=== PATIENT | male | born 1970 | race Caucasian/White ===

== ENCOUNTER 2019-11-23 09:57 | Outpatient (CLI) | payer MEDICARE, SELFPAY ==
--- NOTE | ~2019-11-23 | NM_ITS ---
EXAMINATION: NM hepatobiliary w pharm DATE: 11/23/2019 12:41 INDICATION: Abdominal pain COMPARISON: CT dated 12/18/2018 TECHNIQUE: 4.8 mCi Tc-99m mebrofenin (Choletec) was administered intravenously. Scintigraphic images of the abdomen were obtained for one hour. 1.7 mcg sincalide (Kinevac) was administered by slow intr avenous infusion, and imaging was continued for 30 minutes. Gallbladder ejection fraction was calcula estefanía by the technologist. FINDINGS: There is normal clearance of radiotracer from the blood pool. There is homogeneous tracer uptake by t he liver. Activity progresses to the gallbladder and bowel. The gallbladder ejection fraction (GBEF) is 46% (normal 10-90%, but most patient with gallbladder dysfunction have GBEF < 35% which does over lap with the normal range). IMPRESSION: 1. Normal hepatobiliary scan. Reviewed, dictated and finalized at location A.
[2019-11-23 12:31] LABS: Iron 139 ug/dL (49-181)
[2019-11-23 12:41] LABS: Percent Iron Saturation 57 % (20-50)
[2019-11-23 13:12] LABS: Hepatitis C Virus Antibody Negative (Negative)
[2019-11-26 09:14] LABS: Gliadin AB, IgG 3 Units (<20); Reticulin IgA Negative (Negative); TTG IGA AB 1 U/mL (<4)
== END 2019-11-23 09:58 | disposition home or self-care (01) ==
PROVIDERS: PCP Internal Medicine; Visit Provider Nurse Practitioner
DX: R10.9 Unspecified abdominal pain (principal); R74.0 Nonspecific elevation of levels of transaminase and lactic acid dehydrogenase [LDH]
CPT/HCPCS: 36415; 78227; 83516; 83540; 83550; 86255; 86803; A9537; J2805

== ENCOUNTER → 2020-12-30 02:01 | Outpatient (CLI) | payer MEDICARE, SELFPAY ==
[2020-12-30 19:24] LABS: SARS-CoV-2 RNA PCR Negative
== END ==
PROVIDERS: PCP Internal Medicine; Visit Provider Internal Medicine Gastroenterology
DX: Z01.812 Encounter for preprocedural laboratory examination (principal); Z20.822 Contact with and (suspected) exposure to COVID-19
CPT/HCPCS: C9803; U0003; U0005

== ENCOUNTER 2021-01-02 01:56 | Day surgery (SDC) | payer MEDICARE, SELFPAY ==
[2020-12-24 15:15] VITALS: BMI 31.5
[2021-01-02 08:43] VITALS: BP 151/110; PULSE 80; RESP 17; TEMP 36.6; O2SAT 98; BMI 30.3
[2021-01-02] MEDS: LACTATED RINGERS 1,000 ML 150 ML IV CONT (08:52)
--- NOTE | 2021-01-02 09:21 | WPDANESEPPF ---
Anes - Initial Pre Proc Eval Procedure: Operation Date: 01/02/21 10:00 Proposed Procedures p Screening Colonoscopy - Feroz Garcia MD Date/Time: 01/02/21 09:21 Surgeon: Feroz Garcia MD Pre Op Diagnosis: family hx of colon CA Patient Data Age: 50 Gender: M Height: 5 ft 8 in Weight: 90.4 kg Last Vital Signs Temp 36.6 C 01/02/21 08:43 Pulse 80 01/02/21 08:43 Resp 17 01/02/21 08:43 BP 151/110 H 01/02/21 08:43 Pulse Ox 98 01/02/21 08:43 Allergies Allergy/AdvReac Type Severity Reaction Status Date / Time prochlorperazine Allergy Unknown Rash Verified 01/02/21 08:41 lisinopril AdvReac Unknown Cough Verified 01/02/21 08:41 Home Medications Medication Instructions Recorded Confirmed Type aspirin 81 mg tablet,delayed 81 mg PO DAILY 10/16/19 01/02/21 History release carvedilol 25 mg tablet 25 mg PO Q12H 10/16/19 01/02/21 History nitroglycerin 0.4 mg sublingual 0.4 mg SUBLINGUAL Q5M PRN 10/16/19 01/02/21 History tablet sildenafil (pulm.hypertension) 20 60 - 100 mg PO DAILY PRN tablet 10/16/19 01/02/21 History mg tablet spironolactone 25 mg tablet 25 mg PO DAILY 10/16/19 01/02/21 History losartan 50 mg tablet 50 mg PO DAILY #90 tablet 10/15/20 01/02/21 Rx amlodipine 10 mg tablet 10 mg PO DAILY #90 tablet 11/05/20 01/02/21 Rx atorvastatin 80 mg tablet 80 mg PO DAILY #90 tablet 11/10/20 01/02/21 Rx Patient hx anesthesia problems: none Family hx anesthesia problems: none PMFSH Past Medical History Medical History CAD (coronary artery disease) Chicken pox Depression Headache, migraine Heart problem Hepatic steatosis Herniated disc HTN (hypertension) Hyperlipidemia Mumps Spinal cord stimulator status dorsal column stimulator Surgical History Surgical History Fusion of lumbar spine L4-S1 Hx of fusion of cervical spine C5-C6 Family History Family History Sibling Carcinoma of colon Drug overdose Family history of lung cancer Family history of malignant neoplasm of brain Family history of malignant neoplasm of kidney Patient's sister is Patient's brother is Hyperlipidemia Asthma Diabetes mellitus Father Malignant neoplasm of prostate Emphysema lung Mother Hypertension Diabetes mellitus Cardiac arrest Social History Social History Smoking status: Former smoker Tobacco type: cigarettes Smoking end date: 08/29/17 Alcohol intake: never Living arrangements: with family Gender identity (if verbalized by the patient): Male Spiritual care concerns: No Anes - Eval Final PreProcedure Day of Procedure 01/02/21 09:21 Patient weight: overweight Heart: regular rate and rhythm Lungs: decreased breath sounds Airway: Mallampati scale class II Neurological: alert and oriented Last oral intake: >/= 8 hours ASA classification: III Emergent: no Anesthetic plan: proceed Anesthesia type and monitoring: general GIVS and standard monitoring Informed Consent: The patient's anesthetic plan and its attendant risks and benefits were discussed with the patient/family/POA. Questions were solicited and answers provided to the satisfaction of the patient/family/POA.
--- NOTE | 2021-01-02 09:37 | PM.HPGS ---
History of Present Illness History of Present Illness Consent: Risks, benefits, and alternatives have been discussed and questions answered. Patient agrees to proceed with procedure. Chief complaint: family hx of colon CA Narrative: Wesley Clark is a 50 year old male here for first colonoscopy, father and brother had colon cancer Review of Systems Constitutional: Constitutional: Denies headache(s) and Denies weakness Eyes: Eyes: Denies blurry vision ENT: Reports Normal hearing present, Denies headache(s) and Denies neck pain Cardiovascular: Cardiovascular: Denies chest pain and Denies dyspnea Respiratory: Respiratory: Denies dyspnea Gastrointestinal: Gastrointestinal: Reports no additional gastrointestinal complaints Genitourinary: Genitourinary: Denies dysuria Musculoskeletal: Musculoskeletal: Denies neck pain Integumentary/Breasts: Skin/Breast: Denies dry skin Neurologic: Reports Normal hearing present, Denies headache(s) and Denies weakness Psychiatric: Psychiatric: Denies anxiety Endocrine: Endocrine: Denies change in body appearance Hematologic/Lymphatic: Hematologic/Lymphatic: Denies easy bleeding Allergic/Immunologic: Allergic/Immunologic: Denies urticaria PMFSH Past Medical History Medical History CAD (coronary artery disease) Chicken pox Depression Headache, migraine Heart problem Hepatic steatosis Herniated disc HTN (hypertension) Hyperlipidemia Mumps Spinal cord stimulator status dorsal column stimulator Surgical History Surgical History Fusion of lumbar spine L4-S1 Hx of fusion of cervical spine C5-C6 Family History Family History Sibling Carcinoma of colon Drug overdose Family history of lung cancer Family history of malignant neoplasm of brain Family history of malignant neoplasm of kidney Patient's sister is Patient's brother is Hyperlipidemia Asthma Diabetes mellitus Father Malignant neoplasm of prostate Emphysema lung Mother Hypertension Diabetes mellitus Cardiac arrest Social History Social History Smoking status: Former smoker Tobacco type: cigarettes Smoking end date: 08/29/17 Alcohol intake: never Living arrangements: with family Gender identity (if verbalized by the patient): Male Spiritual care concerns: No Meds Home Medications and Allergies Home Medications Medication Instructions Recorded Confirmed Type aspirin 81 mg tablet,delayed 81 mg PO DAILY 10/16/19 01/02/21 History release carvedilol 25 mg tablet 25 mg PO Q12H 10/16/19 01/02/21 History nitroglycerin 0.4 mg sublingual 0.4 mg SUBLINGUAL Q5M PRN 10/16/19 01/02/21 History tablet sildenafil (pulm.hypertension) 20 60 - 100 mg PO DAILY PRN tablet 10/16/19 01/02/21 History mg tablet spironolactone 25 mg tablet 25 mg PO DAILY 10/16/19 01/02/21 History losartan 50 mg tablet 50 mg PO DAILY #90 tablet 10/15/20 01/02/21 Rx amlodipine 10 mg tablet 10 mg PO DAILY #90 tablet 11/05/20 01/02/21 Rx atorvastatin 80 mg tablet 80 mg PO DAILY #90 tablet 11/10/20 01/02/21 Rx Allergies Allergy/AdvReac Type Severity Reaction Status Date / Time prochlorperazine Allergy Unknown Rash Verified 01/02/21 08:41 lisinopril AdvReac Unknown Cough Verified 01/02/21 08:41 Vital Signs Vital Signs - 24 hr 01/02/21 08:43 Temperature 97.9 F Pulse Rate 80 Respiratory Rate 17 Blood Pressure 151/110 H Pulse Oximetry 98 Exam Const: General: comfortable and no acute distress HENMT: General nose exam: Normal nares present Eyes: General: appearance normal, both eyes and all related structures Neck: Neck: no JVD Resp: Auscultation: clear to auscultation bilaterally Cardio: Rate: regular rate Rhythm: regular rhythm G
[2021-01-02 10:11] VITALS: BP 112/76; PULSE 80; RESP 17; O2SAT 97
[2021-01-02 10:21] VITALS: BP 114/80; PULSE 71; RESP 17; O2SAT 95
[2021-01-02 10:31] VITALS: BP 120/82; PULSE 76; RESP 17; O2SAT 97
== END 2021-01-02 10:40 | disposition home or self-care (01) ==
PROVIDERS: PCP Internal Medicine; Visit Provider Internal Medicine Gastroenterology
PROC: 0DJD8ZZ Inspection of Lower Intestinal Tract, Via Natural or Artificial Opening Endoscopic (ICD-10-PCS; CPT 45378; principal; 2021-01-02 10:00)
DX: Z12.11 Encounter for screening for malignant neoplasm of colon (principal); D12.0 Benign neoplasm of cecum; D12.2 Benign neoplasm of ascending colon; D12.3 Benign neoplasm of transverse colon; K63.5 Polyp of colon; K64.8 Other hemorrhoids; Z80.0 Family history of malignant neoplasm of digestive organs; I10 Essential (primary) hypertension; E78.5 Hyperlipidemia, unspecified; I25.10 Atherosclerotic heart disease of native coronary artery without angina pectoris; F32.9 Major depressive disorder, single episode, unspecified; Z79.82 Long term (current) use of aspirin; Z98.1 Arthrodesis status; Z87.891 Personal history of nicotine dependence
CPT/HCPCS: 45385; 88305; C9803; J2704; J7120; U0003; U0005

== ENCOUNTER 2021-03-24 09:56 | Outpatient (CLI) | payer MEDICARE, SELFPAY ==
--- NOTE | ~2021-03-24 | CT_ITS ---
EXAMINATION: CTA abdomen pelvis DATE: 03/24/2021 10:51 INDICATION: Abdominal and back pain TECHNIQUE: Computed tomographic angiography (CTA) of the abdomen and pelvis was performed with 100 mL Omnipaque-350 intravenous contrast. Maximum intensity projection 3D-reconstructions of the aorta and other arteries were constructed by the technologist on a separate workstation. The dose-length produ ct (DLP) was 1104.81 mGy-cm. Automated exposure control and iterative reconstruction technique were e mployed. COMPARISON: 12/18/2018 FINDINGS: Minimal dependent atelectasis is present in the lung bases. The heart size is normal. Calci fied coronary artery atherosclerosis is noted. The liver is diffusely low in attenuation when compare d with the spleen, consistent with hepatic steatosis. The spleen, pancreas, gallbladder, and adrenal glands are normal. 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 There is chronic mild atrophy of the left kidney. No pathologically enlarged abdominal or pelvic lymph nodes are iden tified. There is no free intraperitoneal gas or evidence of bowel obstruction. There is severe lumbar spondylosis. There are changes of posterior fusion from L4 through S1. A neurostimulator device is i mplanted in the subcutaneous tissues of the right flank. Its leads and posteriorly in the central spi nal canal at the level of the T7 and T8 vertebral bodies. There is mild wall thickening of the urinar y bladder which could be due to incomplete distention. The abdominal aorta is normal in caliber. There is no dissection. There is calcified atherosclerosis of the aorta and many of the other arteries. The celiac axis, superior mesenteric artery, and inferio r mesenteric artery are unremarkable. There are single renal arteries bilaterally. There is calcified atherosclerosis and moderate stenosis at the origin of the right internal iliac artery. There is mariana cified atherosclerosis with severe stenosis distal internal calcified atherosclerosis with mild steno sis is noted in common iliac arteries, external iliac arteries, and left internal iliac artery. IMPRESSION: 1. Aortic atherosclerosis without dissection or aneurysm. Additional areas of atherosclerosis with se daisha stenosis noted in right internal iliac artery. 2. Diffuse hepatic steatosis. Reviewed, dictated and finalized at location A. IMPRESSION: 1. Aortic atherosclerosis without dissection or aneurysm. Additional areas of a therosclerosis with severe stenosis noted in right internal iliac artery. 2. Diffuse hepatic steatosis.
[2021-03-24 10:46] LABS: Estimated Glomerular Filt Rate > 60
== END 2021-03-24 09:57 | disposition home or self-care (01) ==
LOC: ANHIMG 09:59
PROVIDERS: PCP Internal Medicine; Visit Provider Clinical Nurse Specialist
DX: R10.11 Right upper quadrant pain (principal); I77.89 Other specified disorders of arteries and arterioles; I70.0 Atherosclerosis of aorta; K76.0 Fatty (change of) liver, not elsewhere classified
CPT/HCPCS: 74174; Q9967

== ENCOUNTER 2022-01-12 00:01 | Day surgery (SDC) | payer MEDICARE, SELFPAY ==
[2021-12-29 13:34] VITALS: BMI 31.5
[2022-01-12 07:52] VITALS: BP 121/96; PULSE 81; RESP 17; TEMP 36.5; O2SAT 97
[2022-01-12] MEDS: LACTATED RINGERS 1,000 ML 150 ML IV CONT (08:02)
--- NOTE | 2022-01-12 08:47 | WPDANESEPPF ---
Anes - Initial Pre Proc Eval Procedure: Operation Date: 01/12/22 09:00 Proposed Procedures p Screening Colonoscopy - Feroz Garcia MD Date/Time: 01/12/22 08:47 Surgeon: Feroz Garcia MD Pre Op Diagnosis: hx of colon polyps Patient Data Age: 51 Gender: M Height: 1.73 m Weight: 92 kg Last Vital Signs Temp 97.7 F 01/12/22 07:52 Pulse 81 01/12/22 07:52 Resp 17 01/12/22 07:52 BP 121/96 H 01/12/22 07:52 Pulse Ox 97 01/12/22 07:52 Allergies Allergy/AdvReac Type Severity Reaction Status Date / Time prochlorperazine Allergy Unknown Rash Verified 01/12/22 07:50 lisinopril AdvReac Unknown Cough Verified 01/12/22 07:50 Home Medications Medication Instructions Recorded Confirmed Type aspirin 81 mg tablet,delayed 81 mg PO DAILY 10/16/19 12/29/21 History release carvedilol 25 mg tablet 25 mg PO Q12H 10/16/19 12/29/21 History nitroglycerin 0.4 mg sublingual 0.4 mg SUBLINGUAL Q5M PRN 10/16/19 12/29/21 History tablet sildenafil (pulm.hypertension) 20 60 - 100 mg PO DAILY PRN tablet 10/16/19 12/29/21 History mg tablet losartan 50 mg tablet 50 mg PO DAILY #90 tablet 10/15/20 12/29/21 Rx amlodipine 10 mg tablet 10 mg PO DAILY #90 tablet 11/05/20 12/29/21 Rx atorvastatin 80 mg tablet 80 mg PO DAILY #90 tablet 11/10/20 12/29/21 Rx Patient hx anesthesia problems: none Family hx anesthesia problems: none Results Review: All pre-operative results and documents have been reviewed as part of the pre-operative evaluation. [facility] Past Medical History Medical History (Updated 11/05/21 @ 08:53 by Gilda Wayne NP) CAD (coronary artery disease) Chicken pox Depression Headache, migraine Heart problem Hepatic steatosis Herniated disc HTN (hypertension) Hyperlipidemia Mumps Spinal cord stimulator status dorsal column stimulator Surgical History Surgical History (Updated 03/17/21 @ 14:10 by Preeti M. Senci, [employer]ING MACHINE OPERATOR-C) Fusion of lumbar spine L4-S1 Hx of fusion of cervical spine C5-C6 Family History Family History (Reviewed 03/17/21 @ 11:11 by Michelle Gaviria [facility]) Sibling Carcinoma of colon Drug overdose Family history of lung cancer Family history of malignant neoplasm of brain Family history of malignant neoplasm of kidney Patient's sister is Patient's brother is Hyperlipidemia Asthma Diabetes mellitus Father Malignant neoplasm of prostate Emphysema lung Mother Hypertension Diabetes mellitus Cardiac arrest Social History Social History (Reviewed 03/17/21 @ 11:11 by Michelle Gaviria [facility]) Smoking status: Former smoker Tobacco type: cigarettes Smoking end date: 08/29/17 Alcohol intake: never Living arrangements: with family Gender identity (if verbalized by the patient): Male Spiritual care concerns: No Anes - Eval Final PreProcedure Day of Procedure 01/12/22 08:47 Patient weight: obese Heart: regular rate and rhythm Lungs: clear to auscultation Airway: Mallampati scale class III Neurological: alert and oriented Last oral intake: >/= 8 hours ASA classification: III Emergent: no Anesthetic plan: proceed Anesthesia type and monitoring: general GIVS and standard monitoring Results Review: All pre-operative results and documents have been reviewed as part of the pre-operative evaluation. Informed Consent: The patient's anesthetic plan and its attendant risks and benefits were discussed with the patient/family/POA. Questions were solicited and answers provided to the satisfaction of the patient/family/POA.
--- NOTE | 2022-01-12 08:50 | PM.HPGS ---
History of Present Illness History of Present Illness Consent: Risks, benefits, and alternatives have been discussed and questions answered. Patient agrees to proceed with procedure. Chief complaint: hx of colon polyps Narrative: Wesley Clark is a 51 year old male with multiple colon polyps removed last year and strong family history of colon cancer Review of Systems Constitutional: Constitutional: Denies headache(s) and Denies weakness Eyes: Eyes: Denies blurry vision ENT: Reports Normal hearing present, Denies headache(s) and Denies neck pain Cardiovascular: Cardiovascular: Denies chest pain and Denies dyspnea Respiratory: Respiratory: Denies dyspnea Gastrointestinal: Gastrointestinal: Reports no additional gastrointestinal complaints Genitourinary: Genitourinary: Denies dysuria Musculoskeletal: Musculoskeletal: Denies neck pain Integumentary/Breasts: Skin/Breast: Denies dry skin Neurologic: Reports Normal hearing present, Denies headache(s) and Denies weakness Psychiatric: Psychiatric: Denies anxiety Endocrine: Endocrine: Denies change in body appearance Hematologic/Lymphatic: Hematologic/Lymphatic: Denies easy bleeding Allergic/Immunologic: Allergic/Immunologic: Denies urticaria PMFSH Past Medical History Medical History (Updated 01/12/22 @ 08:50 by Feroz Garcia MD) Adenomatous colon polyp CAD (coronary artery disease) Chicken pox Depression Headache, migraine Heart problem Hepatic steatosis Herniated disc HTN (hypertension) Hyperlipidemia Mumps Spinal cord stimulator status dorsal column stimulator Surgical History Surgical History (Updated 03/17/21 @ 14:10 by REINIER Boyce-C) Fusion of lumbar spine L4-S1 Hx of fusion of cervical spine C5-C6 Family History Family History Sibling Carcinoma of colon Drug overdose Family history of lung cancer Family history of malignant neoplasm of brain Family history of malignant neoplasm of kidney Patient's sister is Patient's brother is Hyperlipidemia Asthma Diabetes mellitus Father Malignant neoplasm of prostate Emphysema lung Mother Hypertension Diabetes mellitus Cardiac arrest Social History Social History Smoking status: Former smoker Tobacco type: cigarettes Smoking end date: 08/29/17 Alcohol intake: never Living arrangements: with family Gender identity (if verbalized by the patient): Male Spiritual care concerns: No Meds Home Medications and Allergies Home Medications Medication Instructions Recorded Confirmed Type aspirin 81 mg tablet,delayed 81 mg PO DAILY 10/16/19 12/29/21 History release carvedilol 25 mg tablet 25 mg PO Q12H 10/16/19 12/29/21 History nitroglycerin 0.4 mg sublingual 0.4 mg SUBLINGUAL Q5M PRN 10/16/19 12/29/21 History tablet sildenafil (pulm.hypertension) 20 60 - 100 mg PO DAILY PRN tablet 10/16/19 12/29/21 History mg tablet losartan 50 mg tablet 50 mg PO DAILY #90 tablet 10/15/20 12/29/21 Rx amlodipine 10 mg tablet 10 mg PO DAILY #90 tablet 11/05/20 12/29/21 Rx atorvastatin 80 mg tablet 80 mg PO DAILY #90 tablet 11/10/20 12/29/21 Rx Allergies Allergy/AdvReac Type Severity Reaction Status Date / Time prochlorperazine Allergy Unknown Rash Verified 01/12/22 07:50 lisinopril AdvReac Unknown Cough Verified 01/12/22 07:50 Vital Signs Vital Signs - 24 hr 01/12/22 07:52 Temperature 97.7 F Pulse Rate 81 Respiratory Rate 17 Blood Pressure 121/96 H Pulse Oximetry 97 Exam Const: General: comfortable and no acute distress HENMT: General nose exam: Normal nares present Eyes: General: appearance normal, both eyes and all related structures Neck: Neck: no JVD Resp: Auscultation: clear to auscultation bilaterally Cardio: Rate: regular rate Rhythm: regular rhythm GI: Inspection: non-dist
[2022-01-12 09:13] VITALS: BP 115/81; PULSE 74; RESP 20; O2SAT 97
[2022-01-12 09:23] VITALS: BP 112/83; PULSE 68; RESP 20; O2SAT 97
[2022-01-12 09:29] VITALS: BP 120/91; PULSE 70; RESP 22; O2SAT 94
== END 2022-01-12 09:37 | disposition home or self-care (01) ==
PROVIDERS: PCP Internal Medicine; Visit Provider Internal Medicine Gastroenterology
PROC: 0DJD8ZZ Inspection of Lower Intestinal Tract, Via Natural or Artificial Opening Endoscopic (ICD-10-PCS; CPT 45378; principal; 2022-01-12 09:00)
DX: Z12.11 Encounter for screening for malignant neoplasm of colon (principal); D12.2 Benign neoplasm of ascending colon; D12.5 Benign neoplasm of sigmoid colon; K63.5 Polyp of colon; K64.8 Other hemorrhoids; I25.10 Atherosclerotic heart disease of native coronary artery without angina pectoris; I10 Essential (primary) hypertension; E78.5 Hyperlipidemia, unspecified; K76.0 Fatty (change of) liver, not elsewhere classified; Z98.1 Arthrodesis status; Z87.891 Personal history of nicotine dependence; E66.9 Obesity, unspecified; Z68.30 Body mass index [BMI] 30.0-30.9, adult; Z80.0 Family history of malignant neoplasm of digestive organs
CPT/HCPCS: 45380; 45385; 88305; J2704; J7120

== ENCOUNTER 2022-04-19 08:22 | Outpatient (CLI) | payer MEDICARE, SELFPAY ==
--- NOTE | ~2022-04-19 | XR_ITS ---
EXAMINATION: XR chest 2V DATE: 04/19/2022 08:53 INDICATION: Dyspnea on exertion TECHNIQUE: PA and lateral views of the chest were obtained. COMPARISON: Chest radiograph dated 08/11/2018 FINDINGS: The lungs remain clear with no focal airspace opacities, pulmonary edema, pleural effusion or pneumot horax. The cardiomediastinal silhouette is normal. Spinal stimulator leads project over the central c anal at the mid to lower thoracic spine. Plate-screw fixation for lower cervical anterior spinal fusi on. IMPRESSION: 1. No acute cardiopulmonary disease. Reviewed, dictated and finalized at location A.
== END 2022-04-19 08:23 | disposition home or self-care (01) ==
PROVIDERS: PCP Internal Medicine; Visit Provider Nurse Practitioner Adult Health
DX: R06.00 Dyspnea, unspecified (principal)
CPT/HCPCS: 71046

== ENCOUNTER 2022-07-04 17:15 | Emergency (ER) | payer MEDICARE, SELFPAY ==
--- NOTE | ~2022-07-04 | XR_ITS ---
EXAM: XR shoulder RT min 2V DATE: 07/04/2022 17:47 HISTORY: 8 FOOT FALL OFF A LADDER ONTO RT SIDE. RT SHOULDER PAIN . COMPARISON: None available. FINDINGS: Normal mineralization. No fracture or dislocation. No lytic or blastic lesion. Joint space s are maintained. No erosion or periosteal change. Soft tissues within normal limits. IMPRESSION: No acute osseous finding in the right shoulder. Reviewed, dictated and finalized at location K. H MINISTER
--- NOTE | ~2022-07-04 | XR_ITS ---
EXAM: XR elbow RT min 3V DATE: 07/04/2022 20:20 HISTORY: FELL ONTO RT ARM FROM 8FT. PAIN, LIMITED ROM . COMPARISON: None available. FINDINGS: Normal mineralization. No fracture or dislocation. No lytic or blastic lesion. Mild degene rative changes. No erosion or periosteal change. Soft tissues within normal limits. IMPRESSION: No acute osseous finding in the right elbow. Reviewed, dictated and finalized at location K. NG BASTER
[2022-07-04 17:17] VITALS: BP 142/96; PULSE 86; RESP 18; TEMP 36.2; O2SAT 97
[2022-07-04 19:50] VITALS: BP 152/104; PULSE 85; RESP 18; O2SAT 95
[2022-07-04] MEDS: HYDROcodone/acetaminophen (*CRX) 5-325 MG TABLET 2 TAB PO (20:24)
[2022-07-04] MEDS: KETOROLAC 30 MG/ML VIAL (*BKC) 15 MG IM (20:25)
--- NOTE | 2022-07-04 20:29 | ED.GENADULT ---
HPI - General Adult General Chief complaint: Fall Stated complaint: fell off ladder Time Seen by Provider: 07/04/22 19:46 History of Present Illness HPI narrative: this is a 52-year-old male presenting ED after fall off ladder. Patient was approximately 8 ft up on a ladder twisted and he fell onto an outstretched arm. Patient now complaining of pain in his right arm over the lateral deltoid. It is radiating up and down his arm. It is a sharp shooting pain as 10/10 in intensity. Patient denies head trauma, denies chest pain, difficulty breathing or abdominal pain before or after the fall.. Patient feels like the arm is weak. He has not taken anything for pain. Related Data Home Medications Medication Instructions Recorded Confirmed aspirin 81 mg tablet,delayed 81 mg PO DAILY 10/16/19 04/07/22 release (Adult Low Dose Aspirin) carvedilol 25 mg tablet 25 mg PO Q12H 10/16/19 04/07/22 nitroglycerin 0.4 mg sublingual 0.4 mg sublingual Q5M PRN Angina 10/16/19 04/07/22 tablet sildenafil (pulm.hypertension) 20 60 - 100 mg PO DAILY PRN Erectile 10/16/19 02/10/22 mg tablet Dysfunction isosorbide mononitrate 30 mg 30 mg PO DAILY 02/10/22 04/07/22 tablet,extended release 24 hr spironolactone 25 mg tablet 25 mg PO DAILY 02/10/22 04/07/22 Allergies Allergy/AdvReac Type Severity Reaction Status Date / Time prochlorperazine Allergy Unknown Rash Verified 07/04/22 19:58 lisinopril AdvReac Unknown Cough Verified 07/04/22 19:58 Review of Systems Review of Systems: CONSTITUTIONAL: Denies night sweats. EYES: No eye pain ENT: Denies rhinorrhea CARDIOVASCULAR: Denies palpitations RESPIRATORY: Denies hemoptysis GASTROINTESTINAL: Denies hematemesis GENITOURINARY: Denies hematuria. SKIN: Denies rash MUSCULOSKELETAL: Admits arm pain NEUROLOGIC: Denies weakness. PSYCHIATRIC: Denies delusions PMFSH Past Medical History Medical History Adenomatous colon polyp CAD (coronary artery disease) Chicken pox Depression Headache, migraine Heart problem Hepatic steatosis Herniated disc HTN (hypertension) Hyperlipidemia Mumps Spinal cord stimulator status dorsal column stimulator Surgical History Surgical History Fusion of lumbar spine L4-S1 Hx of fusion of cervical spine C5-C6 Family History Family History Sibling Carcinoma of colon Family history of lung cancer Family history of malignant neoplasm of brain Family history of malignant neoplasm of kidney Patient's sister is Patient's brother is Hyperlipidemia Asthma Diabetes mellitus Drug overdose Father Malignant neoplasm of prostate Emphysema lung Mother Hypertension Diabetes mellitus Cardiac arrest Social History Social History Smoking status: Former smoker Tobacco type: cigarettes Smoking end date: 08/29/17 Alcohol intake: never Gender identity (if verbalized by the patient): Male Spiritual care concerns: No Exam Narrative: APPEARANCE: No apparent distress. Head: atraumatic. EYES: EOMI, NOSE: Atraumatic NECK: Trachea midline RESPIRATORY: No increased rate of breathing CARDIOVASCULAR: RRR, ABDOMINAL: Non-distended MUSCULOSKELETAl: No obvious deformities, focal exam of the right upper extremity revealed muscle tightness over the lateral deltoid with no overlying skin changes. There is no crepitus or deformity. Patient is able to give a thumbs up, make an okay sign and dorsiflex the wrist against pressure. Pulses are +2 in the Radian ulnar distribution. Cap refill is less than 2 seconds. Patient does have significant pain with active and passive range of motion of essentially his entire arm. No sensory deficits. NEURO: Alert. Moving 4/4 extremities SKIN:: Warm, dry. Normal color PSYCH
[2022-07-04] MEDS: methocarbamoL 750 MG TABLET 1500 MG PO (20:40)
[2022-07-04 21:48] VITALS: PULSE 80; RESP 18; O2SAT 99
== END 2022-07-04 21:50 | disposition home or self-care (01) ==
PROVIDERS: Emergency Provider Emergency Medicine; PCP Internal Medicine
DX: S49.91XA Unspecified injury of right shoulder and upper arm, initial encounter (principal); I25.10 Atherosclerotic heart disease of native coronary artery without angina pectoris; I10 Essential (primary) hypertension; E78.5 Hyperlipidemia, unspecified; Z86.010 Personal history of colon polyps; Z79.82 Long term (current) use of aspirin; Z98.1 Arthrodesis status; Z87.891 Personal history of nicotine dependence; W11.XXXA Fall on and from ladder, initial encounter
CPT/HCPCS: 73030; 73080; 96372; 99284; A4565; A9270; J1885

== ENCOUNTER 2022-07-13 12:46 | Outpatient (CLI) | payer MEDICARE, SELFPAY ==
--- NOTE | ~2022-07-13 | CT_ITS ---
EXAMINATION: CT shoulder RT wo con DATE: 07/13/2022 13:08 INDICATION: Acute onset right shoulder pain post fall onto the right shoulder 2 weeks prior TECHNIQUE: High resolution computed tomography (CT) of the right shoulder was performed without intra venous contrast. Additional sagittal and coronal reconstructions were performed. Automated exposure c ontrol and iterative reconstruction technique were employed. The dose-length product was 497.21 mGy-c m. COMPARISON: Right shoulder radiographs dated 07/04/2022 FINDINGS: Bone alignment is normal. There is a Hill-Sachs fracture trough at the superoposterolateral aspect of the right humeral head. There is no appreciable associated soft tissue swelling at the does not appe ar to be any increased density at the underlying fatty marrow to suggest edema in the setting of acut e fracture. No other fractures identified. Mild acromioclavicular osteoarthritis. There is also mild glenohumeral osteoarthritis. There is cystic change at the 5:00 position of the anteroinferior glenoi d. No glenohumeral joint effusion or evident increased fluid at the subacromial/subdeltoid bursa musc ulature of the right shoulder girdle is unremarkable. Lungs are unremarkable conifer expiratory phase of imaging and some respiratory motion. No pathologically enlarged lymphadenopathy at the right axil la or visualized right hemithorax. IMPRESSION: 1. Hill-Sachs fracture trough at the superoposterolateral aspect of the right humeral head which for reasons as detailed above is felt to be more likely chronic but this could be more definitively deter mined with MRI if clinically indicated. Correlate clinically for history of prior right glenohumeral dislocation. 2. Mild right acromioclavicular and glenohumeral osteoarthritis with cystic change at the anteroinfer ior glenoid which suggests either overlying high-grade chondromalacia or associated labral tear zita adkins in the setting of an associated chronic Bankart lesion. Reviewed, dictated and finalized at location [facility] IMPRESSION: 1. Hill-Sachs fracture trough at the superoposterolateral aspect of the right h umeral head which for reasons as detailed above is felt to be more likely chron ic but this could be more definitively determined with MRI if clinically indica estefanía. Correlate clinically for history of prior right glenohumeral dislocation. 2. Mild right acromioclavicular and glenohumeral osteoarthritis with cystic landry nge at the anteroinferior glenoid which suggests either overlying high-grade ch ondromalacia or associated labral tear potentially in the setting of an associa estefanía chronic Bankart lesion.
== END 2022-07-13 12:47 | disposition home or self-care (01) ==
PROVIDERS: PCP Internal Medicine; Visit Provider Orthopaedic Surgery
DX: M19.012 Primary osteoarthritis, left shoulder (principal)
CPT/HCPCS: 73200

== ENCOUNTER 2022-08-16 07:43 | Outpatient (RCR) | payer MEDICARE, SELFPAY ==
[2022-08-16 08:00] VITALS: BP_SYST 85
--- NOTE | 2022-08-16 09:03 | PTOPEVAL1 ---
Assessment and note entered by Jimena Mccollum, PT Evaluation Information Diagnosis R shoulder pain Onset Jul 02, 2022 Subjective Information was on a ladder, fell off-- R shoulder was behind him, reaching to try to catch himself, then landed on his R arm with it extended; CT scan reports Hill Sachs fracture, arthritis AC and GH joint with ? labral tear; Reported Pain Level Pain Score Self Report Additional Pain Score Comments pain range of 2-10/10; hard pain top of shoulder, hurts like dull pain, achey to wrist; when fell and hurt it, arm went numb; compared to when first hurt shoulder, it is now more wide spread pain; with sleeping, awaken 4-5x/night due to pain in shoulder; educated pt on correct position in sleeping, sitting and support to arm; hurts when try to lift arm; decreased pain with hand massager; hot baths; have prescription for hydrocodone- take at night; Assessment PT Clinical Summary Wesley has the diagnosis of R shoulder pain, s/p falling off a ladder and landing on his R arm. The CT scan reports bony changes. Prior to fall, he did not work due to chronic neck and back pain. He reports sleep is disrupted due to pain, and decreased use of his dominant arm. With the evaluation, he has decreased strength and ROM of R shoulder, and increased pain with all shoulder active motions. Skilled PT services are indicated for modalities to decrease pain, therapeutic exercises to increase the strength and ROM of his shoulder, with education for posture and HEP. Plan of Care Interventions Electrical Stimulation,Hot Pack/Cold Pack,Manual Therapy,Patient/Caregiver Education,Therapeutic Activities,Therapeutic Exercise,Ultrasound,Other Other Interventions taping PT Services Indicated Yes Treatment Frequency and 2x/wk for 5 weeks Duration These treatments will address the objective and functional deficits as defined above. The patient will be advanced safely and appropriately in order for the patient to progress towards his/her prior level of function. Additional exercises will be introduced and as well as a comprehensive home exercise program upon discharge, if needed, ?to ensure carryover of functional gains achieved in the clinic. This treatment plan has been reviewed and agreement upon by the patient.
--- NOTE | 2022-08-24 11:32 | PCPTNOTE ---
STEAM PRESSER called pt at 11:20 regarding no show to his appt today. Left message on cell phone.
--- NOTE | 2022-09-07 14:56 | PCPTNOTE ---
Patient did not show up for scheduled appointment this date. Called and had to leave a message, that since this was his 4th no show, we have canceled the rest of his appointments and if he need further assistance he would need to see the Dr for further orders.
--- NOTE | 2022-09-21 16:23 | PCPTNOTE ---
PHYSICAL THERAPY DISCHARGE 09-21-22 Attending Provider: Sam Jimenez MD Patient:Wesley Clark Date of :1970 Patient has not returned for any further treatments since initial PT evaluation on 08/16/2022, for R shoulder pain. Therefore he will be discharged at this time. Thank you for referring this patient to [facility].
== END 2022-09-21 17:06 | disposition home or self-care (01) ==
LOC: ANHPT 07:43
PROVIDERS: PCP Internal Medicine; Visit Provider Orthopaedic Surgery
DX: S43.004D Unspecified dislocation of right shoulder joint, subsequent encounter (principal); M25.519 Pain in unspecified shoulder; G89.11 Acute pain due to trauma
CPT/HCPCS: 97110; 97161; 99199

== ENCOUNTER 2024-06-12 00:58 | Day surgery (SDC) | payer MEDICARE, SELFPAY ==
[2024-05-24 11:39] VITALS: BMI 31.6
[2024-06-12 07:16] VITALS: BP 129/88; PULSE 99; RESP 20; TEMP 36.1; O2SAT 98; BMI 31.8
[2024-06-12 07:34] LABS: Glucose Point of Care 154 mg/dl (65-105)
[2024-06-12] MEDS: LACTATED RINGERS 1,000 ML 150 ML IV CONT (07:39)
--- NOTE | 2024-06-12 07:44 | WPDANESEPPF ---
Anes - Initial Pre Proc Eval Procedure: Operation Date: 06/12/24 08:30 Proposed Procedures p Colonoscopy - Feroz Garcia MD Date/Time: 06/12/24 07:44 Surgeon: Feroz Garcia MD Pre Op Diagnosis: Family HX malignant neoplasm of digestive organs Patient Data Age: 54 Gender: M Height: 1.73 m Weight: 95.2 kg Last Vital Signs Temp 36.1 C L 06/12/24 07:16 Pulse 99 06/12/24 07:16 Resp 20 06/12/24 07:16 BP 129/88 06/12/24 07:16 Pulse Ox 98 06/12/24 07:16 O2 Del Method Room Air 06/12/24 07:16 Allergies Allergy/AdvReac Type Severity Reaction Status Date / Time prochlorperazine Allergy Unknown Rash Verified 06/12/24 07:15 lisinopril AdvReac Unknown Cough Verified 06/12/24 07:15 Home Medications Medication Instructions Recorded Confirmed Type aspirin 81 mg tablet,delayed 81 mg PO DAILY 10/16/19 06/12/24 History release (Adult Low Dose Aspirin) carvedilol 25 mg tablet 25 mg PO Q12H 10/16/19 06/12/24 History isosorbide mononitrate 60 mg 60 mg PO DAILY 07/06/22 06/12/24 History tablet,extended release 24 hr duloxetine 30 mg capsule,delayed 30 mg PO DAILY #90 caps 07/28/23 06/12/24 Rx release (Cymbalta) glimepiride 4 mg tablet 4 mg PO QAM #90 tabs 01/18/24 06/12/24 Rx blood sugar diagnostic (Blood #50 ea 01/19/24 06/12/24 Rx Glucose Test strips) blood-glucose meter #1 ea 01/19/24 06/12/24 Rx lancets 30 gauge #100 ea 01/19/24 06/12/24 Rx atorvastatin 80 mg tablet 80 mg PO DAILY #90 tabs 01/24/24 06/12/24 Rx losartan 50 mg tablet 50 mg PO DAILY #90 tabs 01/24/24 06/12/24 Rx Laboratory Tests 06/12/24 07:32 POC Capillary Glucose 154 H mg/dl (65-105) Patient hx anesthesia problems: none Family hx anesthesia problems: none Results Review: All pre-operative results and documents have been reviewed as part of the pre-operative evaluation. [facility]LY [facility] Past Medical History Medical History Adenomatous colon polyp CAD (coronary artery disease) Chicken pox Depression Headache, migraine Heart problem Hepatic steatosis Herniated disc HTN (hypertension) Hyperlipidemia Mumps Spinal cord stimulator status dorsal column stimulator Surgical History Surgical History Fusion of lumbar spine L4-S1 Hx of fusion of cervical spine C5-C6 Family History Family History Sibling Carcinoma of colon Family history of lung cancer Family history of malignant neoplasm of brain Family history of malignant neoplasm of kidney Patient's sister is Patient's brother is Hyperlipidemia Asthma Diabetes mellitus Drug overdose Father Malignant neoplasm of prostate Emphysema lung Mother Hypertension Diabetes mellitus Cardiac arrest Social History Social History Smoking packs per day: 2 Smoking cigarettes per day: 40.0 Years smoked: 30 Smoking pack-years: 60.00 Smoking status: Former smoker Tobacco type: cigarettes Smoking end date: 08/29/17 Alcohol intake: never Substance use: never Substance use type: does not use Lack of Transportation: No Lack of Food: Never True Current Housing: I Have Housing Concerned About Future Housing: No Difficulty Paying Gas/Electric Bills: No Difficulty Paying for Meds: No Currently Unemployed: No Education: High School Diploma/GED Difficulty w/ Childcare or Family Care: No Living arrangements: with family Gender identity (if verbalized by the patient): Male Spiritual care concerns: No Anes - Eval Final PreProcedure Day of Procedure 06/12/24 07:44 Patient weight: obese Heart: regular rate and rhythm Lungs: clear to auscultation Airway: Mallampati scale class III Neurological: alert and oriented Last oral intake: >/= 8 rocco
--- NOTE | 2024-06-12 08:13 | PM.HPGS ---
History of Present Illness History of Present Illness Consent: Risks, benefits, and alternatives have been discussed and questions answered. Patient agrees to proceed with procedure. Chief complaint: Family HX malignant neoplasm of digestive organs Narrative: Wesley Clark is a 54 year old male with colon polyp in 2021, also h/o crc in brother and father Review of Systems Review of Systems: All systems reviewed & are unremarkable except as noted in HPI and below PMFSH Past Medical History Medical History Adenomatous colon polyp CAD (coronary artery disease) Chicken pox Depression Headache, migraine Heart problem Hepatic steatosis Herniated disc HTN (hypertension) Hyperlipidemia Mumps Spinal cord stimulator status dorsal column stimulator Surgical History Surgical History Fusion of lumbar spine L4-S1 Hx of fusion of cervical spine C5-C6 Family History Family History Sibling Carcinoma of colon Family history of lung cancer Family history of malignant neoplasm of brain Family history of malignant neoplasm of kidney Patient's sister is Patient's brother is Hyperlipidemia Asthma Diabetes mellitus Drug overdose Father Malignant neoplasm of prostate Emphysema lung Mother Hypertension Diabetes mellitus Cardiac arrest Social History Social History Smoking packs per day: 2 Smoking cigarettes per day: 40.0 Years smoked: 30 Smoking pack-years: 60.00 Smoking status: Former smoker Tobacco type: cigarettes Smoking end date: 08/29/17 Alcohol intake: never Substance use: never Substance use type: does not use Lack of Transportation: No Lack of Food: Never True Current Housing: I Have Housing Concerned About Future Housing: No Difficulty Paying Gas/Electric Bills: No Difficulty Paying for Meds: No Currently Unemployed: No Education: High School Diploma/GED Difficulty w/ Childcare or Family Care: No Living arrangements: with family Gender identity (if verbalized by the patient): Male Spiritual care concerns: No Meds Home Medications and Allergies Home Medications Medication Instructions Recorded Confirmed Type aspirin 81 mg tablet,delayed 81 mg PO DAILY 10/16/19 06/12/24 History release (Adult Low Dose Aspirin) carvedilol 25 mg tablet 25 mg PO Q12H 10/16/19 06/12/24 History isosorbide mononitrate 60 mg 60 mg PO DAILY 07/06/22 06/12/24 History tablet,extended release 24 hr duloxetine 30 mg capsule,delayed 30 mg PO DAILY #90 caps 07/28/23 06/12/24 Rx release (Cymbalta) glimepiride 4 mg tablet 4 mg PO QAM #90 tabs 01/18/24 06/12/24 Rx blood sugar diagnostic (Blood #50 ea 01/19/24 06/12/24 Rx Glucose Test strips) blood-glucose meter #1 ea 01/19/24 06/12/24 Rx lancets 30 gauge #100 ea 01/19/24 06/12/24 Rx atorvastatin 80 mg tablet 80 mg PO DAILY #90 tabs 01/24/24 06/12/24 Rx losartan 50 mg tablet 50 mg PO DAILY #90 tabs 01/24/24 06/12/24 Rx Allergies Allergy/AdvReac Type Severity Reaction Status Date / Time prochlorperazine Allergy Unknown Rash Verified 06/12/24 07:15 lisinopril AdvReac Unknown Cough Verified 06/12/24 07:15 Vital Signs Vital Signs - 24 hr 06/12/24 07:16 Temperature 96.9 F L Pulse Rate 99 Respiratory Rate 20 Blood Pressure 129/88 Pulse Oximetry 98 Oxygen Delivery Room Air Exam Const: General: comfortable and no acute distress HENMT: Face/Nose/Sinus: Normal nares present Eyes: General: appearance normal, both eyes and all related structures Neck: Neck: no JVD Resp: Auscultation: clear to auscultation bilaterally Cardio: Rate: regular rate Rhythm: regular rhythm GI: Inspection: non-distended GI Palp: Yes Soft to palpation Skin: General skin exam: laura
--- NOTE | 2024-06-12 08:37 | SUR.OPER ---
1 transverse colon polyp not retrieved. Dr. العلي notified.
[2024-06-12 08:40] VITALS: BP 86/59; PULSE 74; RESP 21; O2SAT 95
[2024-06-12 08:50] VITALS: BP 93/64; PULSE 79; RESP 18; O2SAT 95
[2024-06-12 09:00] VITALS: BP 106/85; PULSE 81; RESP 17; O2SAT 95
== END 2024-06-12 09:11 | disposition home or self-care (01) ==
PROVIDERS: PCP Internal Medicine; Referring Provider Nurse Practitioner; Visit Provider Internal Medicine Gastroenterology
PROC: 0DJD8ZZ Inspection of Lower Intestinal Tract, Via Natural or Artificial Opening Endoscopic (ICD-10-PCS; CPT 45378; principal; 2024-06-12 08:30)
DX: Z09 Encounter for follow-up examination after completed treatment for conditions other than malignant neoplasm (principal); D12.3 Benign neoplasm of transverse colon; E78.5 Hyperlipidemia, unspecified; I25.10 Atherosclerotic heart disease of native coronary artery without angina pectoris; F32.A Depression, unspecified; I11.9 Hypertensive heart disease without heart failure; E66.9 Obesity, unspecified; Z68.31 Body mass index [BMI] 31.0-31.9, adult; Z79.82 Long term (current) use of aspirin; Z79.84 Long term (current) use of oral hypoglycemic drugs; Z98.890 Other specified postprocedural states; Z98.1 Arthrodesis status; Z96.82 Presence of neurostimulator; Z87.891 Personal history of nicotine dependence; Z80.0 Family history of malignant neoplasm of digestive organs; Z80.1 Family history of malignant neoplasm of trachea, bronchus and lung; Z80.8 Family history of malignant neoplasm of other organs or systems; Z80.51 Family history of malignant neoplasm of kidney; Z80.42 Family history of malignant neoplasm of prostate; Z82.41 Family history of sudden cardiac death
CPT/HCPCS: 45385; 82948; 88305; J2003; J2371; J2704; J7120

== ENCOUNTER 2024-07-20 09:11 | Outpatient (CLI) | payer MEDICARE, SELFPAY ==
[2024-07-20 18:58] LABS: Basophils Percent Auto 0.4 % (0.2-1.2); Eosinophils Absolute Auto 0.1 K/mm3 (0-0.3); Eosinophils Percent Auto 1.9 % (0-4.4); Hematocrit 50.1 % (42.0-52.0); Immature Granulocyte Absolute 0.02 K/mm3 (0.00-0.031); Immature Granulocyte Percent A 0.3 % (0-0.5); Lymphocytes Absolute Auto 2.42 K/mm3 (0.9-3.2); Lymphocytes Percent Auto 34.8 % (18.3-44.2); Mean Corpuscular HGB Conc 33.9 g/dl (32-36); Mean Corpuscular Volume 91.3 fl (80-100); Mean Platelet Volume 11.8 fl (7.4-10.4); Monocytes Absolute Auto 0.6 K/mm3 (0.1-0.6); Monocytes Percent Auto 8.2 % (2.6-8.5); Neutrophils Absolute Auto 3.8 K/mm3 (1.3-6.7); Neutrophils Percent Auto 54.4 % (45.5-73.1); Platelet Count Result 222 k/mm3 (150-375); Red Blood Count 5.49 M/mm3 (4.6-6.20); Red Cell Distribution Width 12.3 % (11.5-14.5)
[2024-07-20 19:07] LABS: Alanine Aminotransferase 85 U/L (6-50); Albumin Level 4.4 g/dL (3.5-5.1); Alkaline Phosphatase 105 U/L (38-126); Anion Gap 9 mmol/L (4-12); Aspartate Amino Transferase 51 U/L (17-59); Bilirubin,Total 0.8 mg/dL (0.2-1.3); Blood Urea Nitrogen 17 mg/dL (9-20); Calcium 9.4 mg/dL (8.4-10.2); Carbon Dioxide 30 mmol/L (22-30); Chloride 101 mmol/L (98-107); Cholesterol 129 mg/dL (0-200); Estimated Glomerular Filt Rate > 60; Glucose 148 mg/dL (65-110); HDL Direct 30 mg/dL; Potassium 4.5 mmol/L (3.4-5.0); Sodium 140 mmol/L (137-145); Triglycerides 159 mg/dL (<150)
[2024-07-20 19:16] LABS: Creatinine Urine 142.3 mg/dL
[2024-07-20 19:17] LABS: LDL Cholesterol Direct 75 mg/dL
[2024-07-20 19:20] LABS: MALB Creatinine Ratio 10.5 mg/g (0-30)
[2024-07-20 19:33] LABS: Prostate Specific Antigen 1.3 ng/mL (< OR = 4.0)
[2024-07-23 14:35] LABS: Hemoglobin A1C 8.3 % (<5.7)
== END 2024-07-20 09:12 | disposition home or self-care (01) ==
PROVIDERS: PCP Internal Medicine; Visit Provider Nurse Practitioner
DX: Z12.5 Encounter for screening for malignant neoplasm of prostate (principal); E11.9 Type 2 diabetes mellitus without complications
CPT/HCPCS: 36415; 80053; 80061; 82043; 83036; 84153; 85025; G0103

== ENCOUNTER 2024-11-14 13:35 | Outpatient (CLI) | payer MEDICARE, SELFPAY ==
--- OUTSIDE RECORDS SUMMARY | 2024-11-14 15:08 | XMS_ITS | Clinical Summary ---
Author Organization [facility] Address [address] [place] [address] Care Team Providers Care Charter Coordinator Name Role Phone Neptali Mcgrath DO Primary Care Provider [phone] [facility],non-owned Affiliates and Associated Physician Practices is amultiple site organization consisting of ambulatory clinics and hospital sitesin [place], [place], [place] and [place]. This disclosure is being madepursuant to the Care Everywhere program and may not contain all information available regarding this patient. Last updated 18.[facility] Allergies Active Allergy Reactions Criticality Noted Date Comments Lisinopril Cough Medium 09/18/2018 Prochlorperazine Rash Medium 05/07/2019 Reaction: RASH Medications * Be aware that medications may not be up to date on this document. Alwaysverify current medications with the patient. Medication Sig Dispensed Refills Start Date End Date Status lisinopril (PRINIVIL; ZESTRIL) 10 MG tablet Take 10 mg by mouth once daily Active benzonatate (TESSALON) 200 MG capsule Take 1 capsule by mouth 3 times daily as needed for Cough 30 capsule 11/30/2017 Active Additional Information Patient not taking.Reported on 05/07/2019 spironolactone (ALDACTONE) 25 MG tablet 04/26/2019 Active losartan (COZAAR) 50 MG tablet 04/13/2019 Active carvedilol (COREG) 25 MG tablet 02/07/2019 Active nitroGLYCERIN (NITROSTAT) 0.4 MG tablet 09/08/2018 Active furosemide (LASIX) 20 MG tablet 04/26/2019 Active atorvastatin (LIPITOR) 40 MG tablet Take 40 mg by mouth at bedtime Active Family History Medical History Relation Name Comments Cancer - Other Brother High Cholesterol Brother Hypertension Brother Renal Disease Brother COPD - Chronic Obstructive Pulmonary Disease Father Cancer - Other Father Diabetes - Type 2 Father High Cholesterol Father Hypertension Father CAD (Coronary Artery Disease) Mother COPD - Chronic Obstructive Pulmonary Disease Mother CVA Mother Cancer - Other Mother Diabetes - Type 2 Mother High Cholesterol Mother Hypertension Mother Cancer - Other Sister High Cholesterol Sister Hypertension Sister Relation Name Status Comments Brother Father Mother Sister Social History Tobacco Use Types Packs/Day Years Used Date Smoking Tobacco: Former Cigarettes Smokeless Tobacco: Never Alcohol Use Standard Drinks/Week Comments Not Currently 0 (1 standard drink = 0.6 oz pur e alcohol) Sex and Gender Information Value Date Recorded Sex Assigned at Not on file Gender Identity Not on file Sexual Orientation Not on file Last Filed Vital Signs Vital Sign Reading Time Taken Comments Blood Pressure 138/96 11/30/2017 10:51 AM CDT Pulse 112 11/30/2017 11:28 AM CDT Temperature 38.3 C (100.9 F) 11/30/2017 11:28 AM CDT Respiratory Rate 20 11/30/2017 10:51 AM CDT Oxygen Saturation 97% 11/30/2017 10:51 AM CDT Inhaled Oxygen Concentration - - Weight 87.3 kg (192 lb 8 oz) 05/07/2019 10:13 AM CDT Height 174 cm (5' 8.5 ) 05/07/2019 10:13 AM CDT Body Mass Index 28.84 05/07/2019 10:13 AM CDT Plan of Treatment Health Maintenance Due Date Last Done Comments COLOGUARD (AGES 45-75) - COL ON CA SCREENING 1971 COLON MONITORING 1971 COLONOSCOPY - COLON CA SCREENING 1971 CT COLONOGRAPHY - COLON CA SCREENING 1971 Colorectal Cancer Screening 1971 FIT - COLON CA SCREENING 1971 FLEX SIG - COLON CA SCREENING 1971 HIV SCREENING 1986 HEPATITIS C SCREENING 05/29/1989 DTAP/TDAP/TD VACCINES (1 - Tdap) 1990 HEPATITIS B VACCINE (1 of 3 - 19+ 3-dose series) 1990 SCREENING FOR DIABETES 05/07/2019 PNEUMOCOCCAL VACCINE 50+ (1 of 1 - PCV) 2021 ZOSTER VACCINE (1 of 2) 2021 COVID-19 VACCINE ( - 2023-2 5 season) 2024 INFLUENZA VACCINE (#1) 2024 DEPRESSION SCREENING 08/29/2024 MEDICARE AWV CALENDAR YEAR 2024 HIB VACCINE Aged Out No longer eligi ble based on patient's age to complete this topic HPV VACCINE Aged Out No longer eligi ble based on patient's age to complete this topic MENINGOCOCCAL (Group B) VACC INE SHARED DECISION-MAKING Aged Out No longer eligibl e based on patient's age to complete this topic MENINGOCOCCAL GROUPS A/C/Y/W VACCINE Aged Out No longer eligible b ased on patient's age to complete this topic Care Teams Charter Coordinator Relationship Specialty Start Date End Date Neptali Mcgrath DO PCP - General 02/26/21
--- OUTSIDE RECORDS SUMMARY | 2024-11-14 15:08 | XMS_ITS | Encounter Summary ---
Author Organization [facility] Address [address] [place] [address] Care Team Providers Care Concrete Layer Name Role Phone Neptali Mcgrath DO Primary Care Provider [phone] Encounter Details Date Type Department Care Team (Late st Contact Info) Description 09/25/[address] 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 Gender Identity Not on file Sexual Orientation Not on file documented as of this encounter Plan of Treatment Not on file documented as of this encounter Procedures Procedure Name Priority Date/Time Associated Diagnosis Comments SCAN - RADIOLOGY/IMAGING 09/25/2015 documented in this encounter Results * SCAN - RADIOLOGY/IMAGING (09/25/2015) Anatomical Region Laterality Modality Other us Provider Scanning Final Result documented in this encounter Visit Diagnoses Not on filedocumented in this encounter Care Teams Concrete Layer Relationship Specialty Start Date End Date Neptali Mcgrath DO PCP - General Internal Medicine 04/16/22 documented as of this encounter
--- OUTSIDE RECORDS SUMMARY | 2024-11-14 15:09 | XMS_ITS | CONTINUITY OF CARE DOCUMENT ---
Author Name silviasamanthaurszulawendy Address Unknown Organization [facility] Address [address] [place] [address] Phone [phone] Care Team Providers Care Supervisor Paper Products Name Role Phone Santosh BREWSTER, Pricilla Unavailable JENNA HILLS MD Unavailable [phone] JENNA HILLS MD Unavailable [phone] INSURANCE PROVIDERS Payer name Policy type / Coverage type [place] red democrat ID [facility] [id number]
--- OUTSIDE RECORDS SUMMARY | 2024-11-14 15:09 | XMS_ITS | Referral Summary ---
Author Organization [facility] [address] Address [address] [place] [address] Care Team Providers Care Aircraft Sales Representative Name Role Phone Neptali Mcgrath DO Primary Care Provider [phone] Allergies Active Allergy Reactions Criticality Noted Date Comments Adhesive Tape-Silicones Rash Medium Lisinopril Cough Medium 09/18/2018 Prochlorperazine Rash Medium Reaction: RASH Medications losartan (COZAAR) 50 mg tablet Take 1 tablet (50 mg total) by mouth daily. 30 tablet 11 9 Active nitroglycerin (NITROSTAT) 0.4 mg SL tablet 9 Active atorvastatin (LIPITOR) 40 mg tablet Take 1 tablet (40 mg total) by mouth daily 30 tablet 11 9 Active aspirin 81 mg enteric coated tablet Take 1 tablet (81 mg total) by mouth daily Active DULoxetine DR (CYMBALTA) 30 mg capsule Take 1 capsule (30 mg total) by mouth daily Active isosorbide mononitrate ER (IMDUR) 60 mg 24 hr tabletIndications :Coronary artery disease of [place] artery [place] heart with stable angina pectoris TAKE 1 TABLET BY MOUTH EVERY DAY 90 tablet 2 4 Active spironolactone (ALDACTONE) 25 mg tabletIndications :Coronary artery disease of [place] 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 180 tablet 3 4 Active glimepiride (AMARYL) 4 mg tablet Take 1 tablet (4 mg total) by mouth daily before breakfast 4 Active Active Problems Problem Noted Date Diagnosed Date Jaw pain 09/29/2021 Chest pain 09/29/2021 Atherosclerosis of right iliac artery 03/31/2021 Erectile dysfunction 05/03/2019 Abnormal echocardiogram 10/06/2018 Coronary artery disease of [place] artery of [place] heart with stable angina pectoris 10/06/2018 NICM (nonischemic cardiomyopathy) 10/06/2018 Essential hypertension 10/06/2018 ABRAMS (dyspnea on exertion) 10/06/2018 LBBB (left bundle branch block) 10/06/2018 History of tobacco abuse 10/06/2018 NENITA (obstructive sleep apnea) 10/06/2018 Tingling of skin 09/06/2011 Social History Tobacco Use Types Packs/Day Years Used Date Smoking Tobacco: Former Cigarettes Q uit: 08/05/2018 Smokeless Tobacco: Never Tobacco Cessation:Counseling Given: Not Answered Alcohol Use Standard Drinks/Week Comments No 0 (1 standard drink = 0.6 oz pur e alcohol) Personal Safety Answer Date Recorded Getting School Help Needed Not on file 10/02 Sex and Gender Information Value Date Recorded Sex Assigned at Not on file 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 Gender Identity Not on file Sexual Orientation Not on file Last Filed Vital Signs Vital Sign Reading Time Taken Comments Blood Pressure 92/62 04/11/2024 10:57 AM CDT Pulse 86 04/11/2024 10:05 AM CDT Temperature - - Respiratory Rate - - Oxygen Saturation 94% 04/11/2024 10:05 AM CDT Inhaled Oxygen Concentration - - Weight 94.8 kg (209 lb) 04/11/2024 10:05 AM CDT Height 172.7 cm (5' 8 ) 04/11/2024 10:05 AM CDT Body Mass Index 31.78 04/11/2024 10:05 AM CDT Plan of Treatment Not on file Insurance MEDICARE [employer] CHOICE MEDICARE PPO [employer] CHOICE MEDICARE PPO Care Teams Aircraft Sales Representative Relationship Specialty Start Date End Date Neptali Mcgrath DO PCP - General Internal Medicine 04/16/22
--- OUTSIDE RECORDS SUMMARY | 2024-11-14 15:09 | XMS_ITS | Clinical Summary ---
Author Organization [facility] [address] Address [address] [place] [address] Care Team Providers Care Freight Loading Supervisor Name Role Phone Neptali Mcgrath DO Primary Care Provider [phone] Allergies Active Allergy Reactions Criticality Noted Date [...] 24 hr tabletIndications :Coronary artery disease of [place] artery of [place] heart with stable angina pectoris TAKE 1 TABLET BY MOUTH EVERY DAY 90 tablet 2 4 Active spironolactone (ALDACTONE) 25 mg tabletIndications :Coronary artery disease of [place] artery of [place] heart with stable angina pectoris,NICM (nonischemic cardiomyopathy) [...] artery disease of n ative artery of [place] heart with stable angina pectoris 10/06/2018 NICM (nonischemic cardiomyopathy) 10/06/2018 Essential hypertension 10/06/2018 ABRAMS (dyspnea on exertion) 10/06/2018 LBBB (left bundle branch block) 10/06/2018 History of tobacco abuse 10/06/2018 NENITA (obstructive sleep apnea) 10/06/2018 Tingling of skin 09/06/2011 Surgical History Surgery Date Site/Laterality Comments CERVICAL SPINE SURGERY LUMBAR FUSION SPINAL CORD STIMULATOR IMPLANT Medical History Medical History Date Comments Heart disease Hyperlipidemia Family History Medical History Relation Name Comments Cancer Brother Liver disease Brother Cancer Father Hypertension Father Heart disease Mother Lung cancer Sister Relation Name Status Comments Brother Father [...] on file 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 Gender Identity Not on file Sexual Orientation Not on file Obstetrics History Last Filed Vital Signs Vital Sign Reading [...] 04/11/2024 10:05 AM CDT Plan of Treatment Health Maintenance Due Date Last Done Comments Colon Cancer Screening-Colonoscopy 1971 Depression Screening 1971 Hepatitis C Screening 1971 Prostate Cancer Screening-PSA 1971 DTaP/Tdap/Td Vaccine (1 - Tdap) 1982 Hepatitis B Screening 1989 Regular Well Visit/Exam 18-64 1989 Pneumococcal vaccine <65 (1 of 2 - PCV) 1990 Zoster Vaccine (1 of 2) 2021 Influenza Vaccine (#1) 2024 Insurance MEDICARE [employer] CHOICE MEDICARE PPO [employer] CHOICE MEDICARE PPO [employer] CHOICE MEDICARE PPO Care Teams Freight Loading Supervisor Relationship Specialty Start Date End Date Neptali Mcgrath DO PCP - General Internal Medicine 04/16/22
[2024-11-14 20:42] LABS: Hemoglobin A1C 7.5 % (<5.7)
== END 2024-11-14 13:36 | disposition home or self-care (01) ==
LOC: ANHGOSHLAB 13:37
PROVIDERS: PCP Internal Medicine; Visit Provider Nurse Practitioner
DX: E11.9 Type 2 diabetes mellitus without complications (principal)
CPT/HCPCS: 36415; 83036

== ENCOUNTER 2024-12-25 08:44 | Outpatient (CLI) | payer MEDICARE, SELFPAY ==
--- OUTSIDE RECORDS SUMMARY | 2024-12-25 09:10 | XMS_ITS | CONTINUITY OF CARE DOCUMENT ---
Author Name silviasamanthaurszulawendy Address Unknown Organization [facility] Address [address] [place] [address] Phone [phone] Care Team Providers Care Oil Field Technician Name Role Phone Santosh BREWSTER, Pricilla Unavailable [phone] JENNA HILLS MD Unavailable [phone] JENNA HILLS MD Unavailable [phone] INSURANCE PROVIDERS Payer name Policy type / Coverage type Bruni red alliance party ID [facility] [id number]
--- OUTSIDE RECORDS SUMMARY | 2024-12-25 09:10 | XMS_ITS | Clinical Summary ---
Author Organization [facility] Address [address] [place] [address] Care Team Providers Care Food Prep Worker Name Role Phone Neptali Mcgrath DO Primary Care Provider [phone] Source Comments [facility],non-owned Affiliates and Associated Physician Practices is amultiple site organization consisting of ambulatory clinics and hospital sitesin [place], [place], [place] and [place]. This disclosure is being madepursuant to the Care Everywhere program and may not contain all information available regarding this patient. Last updated 18.[employer] [facility] Allergies Active Allergy Reactions Criticality Noted Date Comments Lisinopril Cough Medium 09/18/2018 Prochlorperazine Rash Medium 05/07/2019 Reaction: RASH Medications * Be aware that medications may not be up to date on this document. Alwaysverify current medications with the patient. lisinopril (PRINIVIL; ZESTRIL) 10 MG tablet Take 10 mg by mouth once daily Active benzonatate (TESSALON) 200 MG capsule Take 1 capsule by mouth 3 times daily as needed for Cough 30 capsule 8 Active Additional Information Patient not taking.Reported on 05/07/2019 spironolactone (ALDACTONE) 25 MG tablet 9 Active losartan (COZAAR) 50 MG tablet 9 Active carvedilol (COREG) 25 MG tablet 9 Active nitroGLYCERIN (NITROSTAT) 0.4 MG tablet 9 Active furosemide (LASIX) 20 MG tablet 9 Active atorvastatin (LIPITOR) 40 MG tablet Take [...] at Not on file Legal Sex Male 10:15 AM CDT Gender Identity Not on file Sexual Orientation [...] VACCINE (1 of 2) 2021 COVID-19 VACCINE (1 - 2023-2 5 season) 2024 DEPRESSION SCREENING 08/29/2024 MEDICARE AWV CALENDAR YEAR 2024 INFLUENZA VACCINE (Season Ended) 2025 HIB VACCINE Aged Out No longer eligi [...] on patient's age to complete this topic Insurance [facility] MEDICARE ADV HMO & PPO [id number] [id number] Care Teams Food Prep Worker Relationship Specialty Start Date End Date Neptali Mcgrath DO PCP - General 02/26/21
--- NOTE | 2025-01-14 16:27 | P.SLEEP_ITS ---
Sleep Study Date of Study: 12/25/24 Ordering Provider: Maura Menchaca NP Interpreting Physician: Cristina Kidd MD Sleep Study Type: Polysomnogram Height: 1.73 m Weight: 97.522 kg Body Mass Index: 32.6 Neck Circumference (inches): 18 Cuddy: 10 Reason for Sleep Study Feeling like suffocating at night, previously tried CPAP and did not tolerate Sleep History Wesley Clark is a 54-year-old man who has a prior diagnosis of obstructive sleep apnea, tried CPAP but just could not tolerate it. There is a positive family history, his sister also has sleep apnea. He occasionally awakens from sleep feeling short of breath. He occasionally wakes at night with heartburn, belching or coughing. He frequently snores, however never snores loudly enough that others complain. He constantly has trouble sleeping when he has a cold. He frequently wakes up gasping for breath during the night. He frequently has breathing problems at night. He occasionally sweats excessively at night. He occasionally notices his heart pounding or beating irregularly during the night. He frequently falls asleep during the day. He never falls asleep involuntarily, and never falls asleep while driving. He never experiences loss of muscle tone with strong emotion. He never has daytime difficulty at work due to excessive sleepiness. He never feels paralyzed on waking or falling asleep. He occasionally experiences vivid dreams upon waking or falling asleep. He occasionally feels afraid of going to sleep. He occasionally has nightmares. He occasionally recalls his dreams. He occasionally has thoughts racing through his mind. He never feels sad or depressed. He rarely feels anxiety. He rarely notices parts of his body jerk. He occasionally kicks during the night. He occasionally feels crawling or aching feelings in his legs. He occasionally feels leg pain at night. He never has morning jaw pain, rarely grinds his teeth at night. He constantly feels bothered by pain during the day, frequently awakened by pain during the night. He frequently wakes up feeling stiff in the morning, and he frequently wakes feeling sore or achy. He constantly awakens with pain in his neck, spine, or joints. He has fatigue, nightmares, and memory problems. Normal bedtime is between 8:00 p.m. and 9:00 p.m., falling asleep within 15 minutes, waking 5 or 6 times at night, frequently needs to urinate. Wake time is 6:00 a.m..and he is not sure how many hours of sleep he gets at night. He keeps the same schedule on weekends. He is disabled, does not work. He takes naps in the day, how ever a short nap lasting 10-15 minutes does not leave him feeling refreshed. He feels better in the evening compared to other times of day. Habits: Tobacco: Former smoker, quit years ago Caffeine: 2 cups per day. Alcohol: none Recreational substances: none PMFSH Past Medical History Medical History Obstructive sleep apnea Adenomatous colon polyp Hyperlipidemia Hepatic steatosis CAD (coronary artery disease) Heart problem Spinal cord stimulator status dorsal column stimulator Depression Headache, migraine Herniated disc Mumps Chicken pox HTN (hypertension) Surgical History Surgical History Hx of fusion of cervical spine C5-C6 Fusion of lumbar spine L4-S1 Family History Family History Sibling Carcinoma of colon Family history of lung cancer Family history of malignant neoplasm of brain Family history of malignant neoplasm of kidney Patient's sister is Patient's brother is Hyperlipidemia Asthma Diabetes mellitus Drug overdose Father Malignant neoplasm of prostate Emphysema lung Mother Hypertension Diabetes mellitus Cardiac arrest Social History Social History Smoking packs per day: 2 Smoking cigarettes per day: 40.0 Years smoked: 30 Smoking pack-years: 60.00 Smoking status: Former smoker Tobacco type: cigarettes Smoking end date: 08/29/17 Alcohol intake: never Substance use: never Substance use type: does not use Lack of Transportation: No Lack of Food: Never True Current Housing: I Have Housing Concerned About Future Housing: No Difficulty Paying Gas/Electric Bills: No Difficulty Paying for Meds: No Currently Unemployed: No Education: High School Diploma/GED Difficulty w/ Childcare or Family Care: No Living arrangements: with family Gender identity (if verbalized by the patient): Male Spiritual care concerns: No Medications Home Medications Medication Instructions Recorded Confirmed Type aspirin 81 mg tablet,delayed 81 mg PO DAILY 10/16/19 11/14/24 History release (Adult Low Dose Aspirin) carvedilol 25 mg tablet 25 mg PO Q12H 10/16/19 11/14/24 History isosorbide mononitrate 60 mg 60 mg PO DAILY 07/06/22 11/14/24 History tablet,extended release 24 hr blood sugar diagnostic (Blood #50 ea 01/19/24 11/14/24 Rx Glucose Test strips) blood-glucose meter #1 ea 01/19/24 11/14/24 Rx lancets 30 gauge #100 ea 01/19/24 11/14/24 Rx atorvastatin 80 mg tablet 80 mg PO DAILY #90 tabs 01/24/24 11/14/24 Rx albuterol sulfate 90 mcg/actuation 1 inh inhalation Q4H #8.5 grams 08/16/24 11/14/24 Rx aerosol inhaler duloxetine 30 mg capsule,delayed See Rx Instructions .Route 08/27/24 11/14/24 Rx release .COMPLEX #90 caps glimepiride 4 mg tablet 4 mg PO QAM #180 tabs 11/14/24 11/14/24 Rx losartan 50 mg tablet See Rx Instructions .Route 11/26/24 Rx .COMPLEX #90 tabs Sleep Procedure A full night polysomnogram using the [employer] multi-channel system recorded the standard physiologic parameters including EEG, EOG, submentalis EMG, anterior tibialis EMG, EKG, body position, nasal and oral airflow using nasal pressure sensor and thermistor. Respiratory parameters of chest and abdominal movements were recorded with Respiratory Inductance Plethysmography belts. Oxygen saturation was recorded by pulse oximetry. Video monitoring was also performed. Sleep stages, periodic limb movements, and EEG arousals were scored in 30 second epochs according to the criteria of the AASM Scoring Manual. The Apnea-Hypopnea Index was calculated using CMS guidelines for definition of hypopnea while scoring respiratory events. No sleep aid was used at the start of this study. He did not meet criteria early enough in the night to qualify for split night study so this was conducted as a basic polysomnogram. Sleep Architecture A full night polysomnogram using the [employer] multi-channel system recorded the standard physiologic parameters including EEG, EOG, submentalis EMG, anterior tibialis EMG, EKG, body position, nasal and oral airflow using nasal pressure sensor and thermistor. Respiratory parameters of chest and abdominal movements were recorded with Respiratory Inductance Plethysmography belts. Oxygen saturation was recorded by pulse oximetry. Video monitoring was also performed. Sleep stages, periodic limb movements, and EEG arousals were scored in 30 second epochs according to the criteria of the AASM Scoring Manual. The Apnea-Hypopnea Index was calculated using CMS guidelines for definition of hypopnea with 4% O2 desaturations while scoring respiratory events. Respiratory Analysis The total recording time was 534.6 minutes. The total sleep time was 474.0 minutes. Sleep latency was 29.6 minutes. REM latency was 106.0 minutes. Sleep efficiency was 88.7%. The patient had 26 awakenings for an awakening index of 3.3. Wake after sleep onset time was 31.0 minutes. The patient spent 78.5 minutes, 16.6% of total sleep time in Stage N1. The patient spent 255.5 minutes, 53.9% in Stage N2. The patient spent 1.5 minutes, 0.3% in Stage N3. The patient spent 138.5 minutes, 29.2% in Stage REM sleep. Arousals The patient had 97 hypopneas, 1 obstructive apnea, 16 mixed apneas, and 109 central apneas for an overall Apnea Hypopnea Index of 28.2. The REM Apnea Hypopnea Index was 14.3. The NREM Apnea Hypopnea Index was 37.0. The patient had a Central Apnea Hypopnea Index of 13.8. There were no Respiratory Effort Related Arousals. The Respiratory Disturbance Index is 38.1 events per hour. There was no evidence of Sloan-Ferrer Respirations. Periodic Limb Movements There were 135 total arousals for an arousal index of 17.1. There were 57 spontaneous arousals for an index of 7.2. There were 65 arousals due to respiratory events for an index of 8.2. There was 1 arousal due to periodic limb movements for an index of 0.1. There were 12 arousals due to isolated limb movements for an index of 1.5. Oximetry Data The patient had an average oxygen saturation of 91.9% in sleep with a minimum oxygen saturation of 86% and a maximum oxygen saturation of 97%. The patient had 222 oxygen desaturations that were 4% or greater resulting in an Oxygen Desaturation Index of 28.1. The patient spent 9.1 minutes, 1.7% of total sleep time with an oxygen saturation below 88%. Snoring Profile Snoring was mild. Cardiac Profile The patient had an average pulse rate of 72.2 bpm with a minimum pulse of rate of 59 bpm and a maximum pulse rate of 106 bpm. No arrhythmias noted. EEG Profile Unremarkable, no evidence of seizures. Assessment and Plan Assessment and Plan (1) Obstructive sleep apnea: Code(s): G47.33 - Obstructive sleep apnea (adult) (pediatric) Status: Acute Assessment and Plan: This basic nocturnal polysomnogram on 12/25/2024 shows moderate obstructive sleep apnea, the overall apnea-hypopnea index is 28.2 with desaturation 86%, and a central apnea hypopnea index of 13.8, elevated. He desaturated to 82%, had mild snoring; he spent 9.1 minutes, 1.7% the study below 88%. He is interested in Inspire, hypoglossal nerve stimulator which is a treatment for [id number]-[id number] obstructive sleep apnea. He did not meet criteria early enough in the night to qualify for split night study so this was conducted as a basic polysomnogram. In addition, the patient said he was not interested in CPAP because he wanted to get the hypoglossal nerve stimulator evaluation instead. His central apnea index is 13.8, total AHI is 28.2. His central apnea index is 49% of the total AHI. He might not be a candidate for Inspire with an elevated central apnea-hypopnea index which is more than 25% of the total AHI. Clinical correlation is recommended. Consider sleep medicine referral if the patient is interested. (2) Central sleep apnea: Code(s): G47.31 - Primary central sleep apnea Status: Acute Assessment and Plan: Patient had a central apnea-hypopnea index of 13.8 which is higher than normal, normal central apnea index is < or = to 5 events per hour. He has a history of congestive heart failure which is one of the predisposing factors which can be associated with central sleep apnea. Treating central sleep apnea with appropriate PAP therapy can help manage congestive heart failure. Clinical correlation is recommended. Data The data obtained during this sleep study is adequate for interpretation. Certification This sleep study has been reviewed by a board certified sleep medicine physician.
[2025-01-15 11:10] VITALS: BMI 32.6
== END 2024-12-26 06:39 | disposition home or self-care (01) ==
LOC: ANHCSM 08:45
PROVIDERS: PCP Internal Medicine; Visit Provider Nurse Practitioner
DX: G47.33 Obstructive sleep apnea (adult) (pediatric) (principal)
CPT/HCPCS: 95810

== ENCOUNTER 2025-05-16 09:14 | Outpatient (CLI) | payer MEDICARE, SELFPAY ==
--- OUTSIDE RECORDS SUMMARY | 2025-05-16 09:41 | XMS_ITS | Clinical Summary ---
Author Organization [facility] [address] Address [address] [place] [address] Care Team Providers Care Counter Intelligence Name Role Phone Neptali Mcgrath DO Primary Care Provider [phone] Allergies Active Allergy Reactions Criticality Noted Date [...] (30 mg total) by mouth daily Active glimepiride (AMARYL) 4 mg tablet Take 1 tablet (4 mg total) by mouth daily before breakfast 4 Active isosorbide mononitrate ER (IMDUR) 60 mg 24 hr tabletIndications :Coronary artery disease of [place] artery of [place] heart with stable angina pectoris TAKE 1 TABLET BY MOUTH EVERY DAY 90 tablet 2 5 Active carvediloL (COREG) 25 mg tablet TAKE 1 TABLET BY MOUTH TWO TIMES A DAY WITH MEALS. 180 tablet 3 5 Active spironolactone (ALDACTONE) 25 mg tabletIndications :Coronary artery disease of [place] artery of [place] heart with stable angina pectoris,NICM (nonischemic cardiomyopathy) (HCC),Essential hypertension TAKE 1 TABLET BY MOUTH EVERY DAY 90 tablet 2 5 Active Active Problems Problem Noted Date Diagnosed Date Claudication 11/27/2024 Jaw pain 09/29/2021 Chest pain 09/29/2021 Atherosclerosis of right iliac artery 03/31/2021 Erectile dysfunction 05/03/2019 Abnormal echocardiogram 10/06/2018 Coronary artery disease of n ative artery of koi heart with stable angina pectoris 10/06/2018 NICM [...] on file 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 Gender Identity Not on file Sexual Orientation Not on file Obstetrics History Last Filed Vital Signs Vital Sign Reading Time Taken Comments Blood Pressure 134/86 11/27/2024 1:15 PM CDT Pulse 73 11/27/2024 1:15 PM CDT Temperature - - Respiratory Rate - - Oxygen Saturation 95% 11/27/2024 1:15 PM CDT Inhaled Oxygen Concentration - - Weight 95.7 kg (211 lb) 11/27/2024 1:15 PM CDT Height 172.7 cm (5' 8) 11/27/2024 1:15 PM CDT Body Mass Index 32.08 11/27/2024 1:15 PM CDT Plan of Treatment Health Maintenance Due Date Last Done Comments Colon Cancer Screening-Colonoscopy 1971 Depression Screening 1971 Hepatitis C Screening 1971 Prostate Cancer Screening-PSA 1971 DTaP/Tdap/Td Vaccine (1 - Tdap) 1982 Hepatitis B Screening 1989 Regular Well Visit/Exam 18-64 1989 Pneumococcal vaccine <65 (1 of 2 - PCV) 1990 Zoster Vaccine (1 of 2) 2021 Influenza Vaccine (#1) 2025 Insurance MEDICARE [employer] CHOICE MEDICARE PPO [employer] CHOICE MEDICARE PPO [employer] CHOICE MEDICARE PPO Care Teams Counter Intelligence Relationship Specialty Start Date End Date Neptali Mcgrath DO PCP - General Internal Medicine 04/16/22
--- OUTSIDE RECORDS SUMMARY | 2025-05-16 09:41 | XMS_ITS | Encounter Summary ---
Author Organization [facility] Address [address] [place] [address] Care Team Providers Care Director Banking Name Role Phone Neptali Mcgrath DO Primary Care Provider [phone] Encounter Details Date Type Department Care Team (Late st Contact Info) Description 09/25/2015 Orders Only [facility] Health Information Management [address] [place] [address] Scanning, Provider Social History Tobacco Use Types Packs/Day Years Used Date Smoking Tobacco: Never Sex and Gender Information Value Date Recorded Sex Assigned at Not on file 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
--- OUTSIDE RECORDS SUMMARY | 2025-05-16 09:41 | XMS_ITS | Clinical Summary ---
Author Organization [facility] Address [address] [place] [address] Care Team Providers Care Product Design Manager Name Role Phone Neptali Mcgrath DO Primary Care Provider [phone] [facility],non-owned Affiliates and Associated Physician Practices is amultiple site organization consisting of ambulatory clinics and hospital sitesin [place], [place], [place] and [place]. This disclosure is being madepursuant to the Care Everywhere program and may not contain all information available regarding this patient. Last updated 18.[employer] [facility] Allergies Active Allergy Reactions Criticality Noted Date [...] 10:13 AM CDT Height 174 cm (5' 8.5) 05/07/2019 10:13 AM CDT Body Mass Index [...] 2021 ZOSTER VACCINE (1 of 2) 2021 DEPRESSION SCREENING 08/29/2024 MEDICARE AWV CALENDAR YEAR 2024 COVID-19 VACCINE (1 - 2023-2 5 season) 2025 INFLUENZA VACCINE (#1) 2025 HIB VACCINE Aged Out No longer [...] patient's age to complete this topic Insurance [facility] MEDICARE ADV HMO & PPO [employer] Care Address: [place] [address] [id number] [id number] Care Teams Product Design Manager Relationship Specialty Start Date End Date Neptali Mcgrath DO PCP - General 02/26/21
[2025-05-16 13:03] LABS: Hematocrit 50.2 % (42.0-52.0); Hemoglobin 16.9 g/dL (14.0-18.0); Immature Granulocyte Percent A 0.3 % (0-0.5); Lymphocytes Absolute Auto 2.37 K/mm3 (0.9-3.2); Mean Corpuscular HGB Conc 33.7 g/dl (32-36); Mean Corpuscular Hemoglobin 30.7 pg (26-34); Mean Corpuscular Volume 91.3 fl (80-100); Nucleated Red Blood Cells Absolute Auto 0.000 K/mm3 (0.0-0.012); Nucleated Red Blood Cells Perc 0.0 % (0.0-0.2); Platelet Count Result 212 k/mm3 (150-375); Red Blood Count 5.50 M/mm3 (4.6-6.20); White Blood Count 7.1 K/mm3 (4.5-10.0)
[2025-05-16 13:05] LABS: Alanine Aminotransferase 110 U/L (6-50); Albumin Level 4.4 g/dL (3.5-5.1); Alkaline Phosphatase 104 U/L (38-126); Anion Gap 7 mmol/L (4-12); Aspartate Amino Transferase 76 U/L (17-59); Bilirubin,Total 0.9 mg/dL (0.2-1.3); Blood Urea Nitrogen 15 mg/dL (9-20); Calcium 9.2 mg/dL (8.4-10.2); Carbon Dioxide 31 mmol/L (22-30); Chloride 102 mmol/L (98-107); Cholesterol 140 mg/dL (0-200); Estimated Glomerular Filt Rate > 60; Glucose 146 mg/dL (65-110); HDL Direct 28 mg/dL; Potassium 4.8 mmol/L (3.4-5.0); Sodium 140 mmol/L (137-145); Total Protein 7.6 g/dL (6.3-8.2); Triglycerides 134 mg/dL (<150)
[2025-05-16 13:25] LABS: MALB Creatinine Ratio 7.5 mg/g (0-30)
[2025-05-16 13:36] LABS: Hemoglobin A1C 8.1 % (<5.7)
[2025-05-16 13:41] LABS: Prostate Specific Antigen 1.4 ng/mL (< OR = 4.0)
== END 2025-05-16 09:15 | disposition home or self-care (01) ==
PROVIDERS: PCP Internal Medicine; Visit Provider Nurse Practitioner
DX: Z12.5 Encounter for screening for malignant neoplasm of prostate (principal); I10 Essential (primary) hypertension; E78.2 Mixed hyperlipidemia; E11.9 Type 2 diabetes mellitus without complications
CPT/HCPCS: 36415; 80053; 80061; 82043; 83036; 84153; 85025; G0103

== ENCOUNTER 2025-06-17 09:13 | Outpatient (CLI) | payer MEDICARE, SELFPAY ==
--- OUTSIDE RECORDS SUMMARY | 2025-06-17 10:05 | XMS_ITS | Clinical Summary ---
Author Organization [facility] Address [address] [place] [address] Care Team Providers Care Layer Off Name Role Phone Neptali Mcgrath DO Primary Care Provider [phone] Source Comments [facility],non-owned Affiliates and Associated Physician Practices is amultiple site organization consisting of ambulatory clinics and hospital sitesin [place], [place] and [place]. This disclosure is being madepursuant to the Care Everywhere program and may not contain all information available regarding this patient. Last updated 18.[employer] [facility] Allergies Active Allergy Reactions Criticality Noted Date [...] patient's age to complete this topic Insurance [facility] MEDICARE ADV HMO & PPO [id number] [place] [address] [id number] Care Teams Layer Off Relationship Specialty Start Date End Date Neptali Mcgrath DO PCP - General 02/26/21
[2025-06-17 13:16] LABS: Alanine Aminotransferase 97 U/L (6-50); Albumin Level 4.4 g/dL (3.5-5.1); Alkaline Phosphatase 105 U/L (38-126); Anion Gap 8 mmol/L (4-12); Aspartate Amino Transferase 61 U/L (17-59); Bilirubin,Total 0.6 mg/dL (0.2-1.3); Blood Urea Nitrogen 19 mg/dL (9-20); Calcium 9.0 mg/dL (8.4-10.2); Carbon Dioxide 26 mmol/L (22-30); Chloride 103 mmol/L (98-107); Estimated Glomerular Filt Rate > 60; Glucose 103 mg/dL (65-110); Potassium 4.0 mmol/L (3.4-5.0); Sodium 137 mmol/L (137-145); Total Protein 7.6 g/dL (6.3-8.2)
[2025-06-17 13:59] LABS: Hemoglobin A1C 6.6 % (<5.7)
[2025-06-19 13:08] LABS: Hematocrit 53.5 % (42.0-52.0); Hemoglobin 16.9 g/dL (14.0-18.0); Mean Corpuscular HGB Conc 31.6 g/dl (32-36); Mean Corpuscular Hemoglobin 30.2 pg (26-34); Mean Corpuscular Volume 95.7 fl (80-100); Platelet Count Result 249 k/mm3 (150-375); Red Blood Count 5.59 M/mm3 (4.6-6.20); White Blood Count 7.9 K/mm3 (4.5-10.0)
== END 2025-06-17 09:14 | disposition home or self-care (01) ==
LOC: ANHGOSHLAB 09:14
PROVIDERS: PCP Nurse Practitioner; Visit Provider Nurse Practitioner
DX: E11.9 Type 2 diabetes mellitus without complications (principal); I25.118 Atherosclerotic heart disease of native coronary artery with other forms of angina pectoris; R07.89 Other chest pain
CPT/HCPCS: 36415; 80053; 83036; 85027

== ENCOUNTER 2025-08-13 12:07 | Outpatient (CLI) | payer MEDICARE, SELFPAY ==
--- OUTSIDE RECORDS SUMMARY | 2025-08-13 11:00 | XMS_ITS | Encounter Summary ---
Author Organization [facility] Healthcare Address [address] [place] [address] Care Team Providers Care Soda Worker Name Role Phone Neptali Mcgrath DO Primary Care Provider [phone] Bobby Diaz MD Unavailable [phone] Gordo Fajardo MD Unavailable [phone] Miscellaneous, Not In File Unavailable Unava ilable Reason for Visit * Reason Comments Coronary Artery Disease Shortness of Breath Sleep Apnea Hypertension Cardiomyopathy LBBB Encounter Details Date Type Department Care Team (Late st Contact Info) Description 08/13/2025 11:00 AM NAME PLATE STAMPER Office Visit [facility] Cardiology [address] [place] [address] Prudence Davis NP [address] [facility] [address] [address] Hx of CABG (Primary Dx); Coronary artery disease involving chinik coronary artery of chinik heart without angina pectoris; ABRAMS (dyspnea on exertion); Tachycardia Social History Tobacco Use Types Packs/Day Years Used Date Smoking Tobacco: Former Cigarettes Q uit: 08/05/2018 Smokeless Tobacco: Never Alcohol Use Standard Drinks/Week Comments Never 0 (1 standard drink = 0.6 oz pur e alcohol) Social Connection and Isolation Panel Answer Date Recorded In a typical week, how many times do you talk on the phone with family, friends, or neighbors? More than three times a week 07/12/2025 How often do you get togethe r with friends or relatives? Once a week 07/12/2025 How often do you attend [facility] or [facility] services? Never 07/12/2025 Do you belong to any clubs o r organizations such as jain groups, unions, fraternal or athletic groups, or school groups? No 07/12/2025 How often do you attend meet ings of the clubs or organizations you belong to? Never 07/12/2025 Are you , , di vorced, , never , or living with a partner? 07/12/2025 AUDIT-C Answer Date Recorded Q1: How often do you have a drink containing alcohol? Never 07/12/2025 Q2: How many drinks containi ng alcohol do you have on a typical day when you are drinking? Patient does not drink Q3: How often do you have si x or more drinks on one occasion? Never 07/12/2025 Overall Financial Resource Strain (CARDIA) Answe r Date Recorded How hard is it for you to pa y for the very basics like food, housing, medical care, and heating? Not hard at all 07/12/2025 Hunger Vital Sign Answer Date Recorded Within the past 12 months, y ou worried that your food would run out before you got the money to buy more. Never true 07/12/20 25 Within the past 12 months, t he food you bought just didn't last and you didn't have money to get more. Never true 07/12/2025 PRAPARE - Transportation Answer Date Re corded In the past 12 months, has l ack of transportation kept you from medical appointments or from getting medications? No 06/29 In the past 12 months, has l ack of transportation kept you from meetings, work, or from getting things needed for daily living? No 07/12/2025 Housing Stability Vital Sign Answer Danish e Recorded In the last 12 months, was t here a time when you were not able to pay the mortgage or rent on time? No 07/12/2025 In the past 12 months, how m any times have you moved where you were living? 0 07/12/2025 At any time in the past 12 m [facility], were you homeless or living in a jail (including now)? No 07/12/[address] [facility] Utilities Answer Date Recorded In the past 12 months has th e [employer], gas, oil, or water company threatened to shut off services in your home? No 07/12/2025 Personal Safety Answer Date Recorded Have you ever been in or are you currently in a harmful physical or emotional relationship or is someone making you feel afraid or unsafe? Denies 07/11/2025 Sex and Gender Information Value Date Recorded Sex Assigned at Not on file Legal Sex Male 12:50 PM NAME PLATE STAMPER Gender Identity Not on file Sexual Orientation Not on file documented as of this encounter Last Filed Vital Signs Vital Sign Reading Time Taken Comments Blood Pressure 130/90 08/13/2025 11:09 AM NAME PLATE STAMPER Pulse 124 08/13/2025 11:09 AM NAME PLATE STAMPER Temperature - - Respiratory Rate - - Oxygen Saturation 96% 08/13/2025 11: 09 AM NAME PLATE STAMPER Inhaled Oxygen Concentration - - Weight 84.8 kg (186 lb 14.4 oz) 025 11:09 AM NAME PLATE STAMPER Height 172.7 cm (5' 8) 08/13/2025 11:0 9 AM NAME PLATE STAMPER Body Mass Index 28.42 08/13/2025 11:09 AM NAME PLATE STAMPER documented in this encounter Functional Status * BP Location Answer Date of Assessment Author Right arm 08/13/2025 11:09 AM NAME PLATE STAMPER Mandeep Meneses MA * BP Location Answer Date of Assessment Author Right arm 08/13/2025 11:09 AM NAME PLATE STAMPER Mandeep Meneses MA documented as of this encounter Ordered Prescriptions Prescription Sig Dispense Quantity Refills Last Filled Start Date End Date metoprolol tartrate (LOPRESSOR) 25 mg immediate release tablet Take 2 tablets (50 mg total) by mouth 2 (two) times a day 360 tablet 2 08/13/2025 documented in this encounter Progress Notes * Prudence Davis NP - 08/13/2025 11:00 AM CST Images from the original note were not included. DATE OF VISIT: 08/13/2025 CHIEF COMPLAINT CAD Hospital follow up post CABG HPI Wesley Clark is a 55 y.o. male with a history of cardiomyopathy and coronary disease. I saw him initially in July 2018 as he had an echocardiogram a 40% a left bundle branch block. Outpatient stress test was performed which was abnormal which led to a cardiac catheterization which was also abnormal. Please see below. He returns feeling okay. He is however having abdominal distention. He did have 1 episode of stabbing chest pain which improved with nitroglycerin. He does have dyspnea with walking around such as walking to and from the car. He has stop smoking and is congratulated. He denies any paroxysmal nocturnal dyspnea, orthopnea, edema, syncope or presyncope. No palpitations 11/24/2018 OV with LOSS PREVENTION INVESTIGATOR: Spironolactone was started at the last visit, labs were checked the following week in were okay. Patient noticed increased urination but no reported side effects. Two weeks agohe was having some chest pain and spoke with our nurse over the phone on how to use nitroglycerin. The episode made him very anxious. He has not had any further episodes since then. He has an appointm ent with pulmonology on 12/24/2018. He reports he cannot tolerate CPAP mask. He continues to abstain from smoking. He is undergoing workup through his PCP for abdominal bloating and distension. He had an abdominal ultrasound few weeks ago that was unremarkable. He has questions about heart healthy diet. He wants to know how soon we will reassess his LV function. 01/23/2019 OV with LOSS PREVENTION INVESTIGATOR: It is unclear why the patient was scheduled again to see me, as I directed his next appointment to be scheduled with Dr. Fajardo. Echo was repeated on 12/13/2018 and showed EF 45-50%, grade 1 diastolic dysfunction and mild MR. Today he complains of weakness in both legs and a burning pain in both buttocks when he walks up hill. He gets these symptoms to a lesser extent when h e is walking on level ground, which she has continued to do on a regular basis (walks his dog as his source of exercise). He has chronic intermittent stabbing type pain in his left foot which seems to be neuropathic related to history of low back surgery. He still gets intermittent chest pain as wespoke about at the last visit and it ???freaks him out.?? He remains smoke-free. PCP did workup for the abdominal bloating which the patient describes to me as a couple different ultrasounds and a CT scan. He complains of difficulty achieving and maintaining full erection and also decreased libido/ loss of interest in sex. He was scheduled for a sleep study but missed the appointment and does not want to reschedule it F/U note 09/06/2019: He denies any chest pain except far on 1 occasion in which she stood up and felt a ???spasm?? in his chest. His blood pressure did spike to 160s over 120s as he was quite anxious. He took a nitroglycerin and his blood pressure dropped and he felt better. Whole episode lasted afew seconds he states. He denies any edema, orthopnea, shortness of breath . Does have some paroxysmal nocturnal dyspnea. Follow-up visit with LOSS PREVENTION INVESTIGATOR 03/31/2021: He returns overdue for routine follow-up. He just saw vascular surgery earlier today because he had an incidental finding of right iliac artery stenosis on a CT scan that was ordered by his PCP to evaluate complaint of abdominal pain (see vascular surgery's office note from today for impression and plan). He reports an ER visit to [place] last spring (OctoberNovember 2019) for severe chest pain where he was kept overnight but TN was ruled out. He states he has an occasional sharp chest pain that last for a minute or less, has not needed to use NTG. He remains tobacco free. He does not use a CPAP. Really his only complaint today is feeling sluggish. He has questions about the prognosis of his heart disease. In regards to his elevated blood pressure today he thinks he was anxious about when he might find out a vascular surgery because it was higher there but has come down now. It was better at a recent PCP visit 125/82. Follow-up visit 09/29/2021: He has been feeling fairly well overall but still has some sharp stabbing chest pains. He also has some more worrisome symptoms of some numbness and tingling in his ears and down into his jaw area. It will last for 15 seconds or so. It then goes away. It is not exertional. He denies any syncope, presyncope, paroxysmal nocturnal dyspnea orthopnea, edema palpitations Follow-up note 02/04/2022: He still has some occasional chest pains last for 30- 40 seconds at a time. He does have some shortness of breath with climbing a flight of stairs also. Stress test showed some fixed defects but no ischemia. No syncope, presyncope, paroxysmal nocturnal dyspnea orthopnea, edema palpitations Follow-up with LOSS PREVENTION INVESTIGATOR 04/16/2022: He recently saw his PCP who advised him to see us due to shortness ofbreath. For the past few weeks he has noticed he gets short of breath more easily such as getting up and going to the bathroom at home. He will also notices he gets breathless when he feels anxious. He had COVID a month ago (this was his 4th COVID infection). Symptoms included fever, fatigue, cough, headache, nausea which lasted about 3 days. He noticed the increased shortness of breath before this COVID infection, but since then he has noticed an increase in the shortness of breath. Isosorbidewas started at the last visit and since then he reports he has less frequent chest pain episodes. He had questions about the results of his stress test that was done in September. Follow-up note 06/30/2022: He did have some recent chest tightness lasting for about 30 seconds. Itwas nonexertional. He still has some sharp chest pains at times if he lays on his left side. He hasno syncope, edema. He does have some occasional palpitations. Shortness breath is little bit better. He does feel better with the addition of isosorbide. Follow-up note 10/15/2022: He denies any chest pain, shortness breath, syncope, presyncope, paroxysmal nocturnal dyspnea, orthopnea, edema or palpitations. States that he feels better now than he hasin a very long time. He states that he ???feels alive ???. Follow-up note 03/31/2023: Still has some burning chest pain with activity. This is not worse. He also has some atypical chest pain symptoms which is worsened whenever he lays on his left side and improved whenever he flips to his right. Symptoms are not worse than previous. No syncope, presyncope,paroxysmal nocturnal dyspnea orthopnea, edema palpitations. No significant shortness of breath. Follow-up note 10/05/2023: Set a couple episodes left-sided chest pain. Generally speaking they occur whenever he is lying on his left side. Improved when he rolls over. He denies any syncope, presyncope, paroxysmal nocturnal dyspnea orthopnea, edema, shortness breath palpitations Follow-up note 04/11/2024 he does have some nonexertional chest pain that occurs and middle night and he gets up rolls over and symptoms go away. Otherwise feels fine and has no syncope, presyncope, paroxysmal nocturnal dyspnea, orthopnea, edema, palpitations, shortness a breath Follow-up note 11/27/2024: He recently had a myelogram. Incidentally finding aortic arthrosclerosisand a possible obstruction involving his left common iliac artery. From a cardiac perspective he feels okay and denies any chest pain, shortness breath, syncope, presyncope, paroxysmal nocturnal dyspnea, orthopnea, edema or palpitations. He does have some achiness involving his left leg with activity Follow-up note 06/04/2025: He is on Mounjaro and feels tired and sluggish. Does have some shortnessbreath with activity which seems to be worsening has some chest burning also with exertion which seems to be worsening. It is more frequent. He denies any lower extremity swelling. No syncope or presyncope. Heart rate has also been elevated today. 08/13/25 LOSS PREVENTION INVESTIGATOR follow up visit: Patient returns today as he underwent LHC on 06/20/25 that showed CAD involving two major epicardial vessels, the LAD and RCA with WIRELESS DEVELOPMENT MANAGER of the mid RCA. He was referred to CTS and had CABG x 2 with SUAREZ to LAD and radial artery to PDA with Dr. Diaz on 07/11/25. Since the surgery he has noted a dry cough and feeling winded with activity. He states he talked toCTS about it and they recommended he try to increase activity and use incentive spirometer. No chest heaviness. Has incisional pain. No LE edema or abdominal bloating. He does report palpitations. MEDICAL HISTORY Past Medical History: Diagnosis Date Anxiety Atherosclerosis of right iliac artery Claudication Coronary artery disease ABRAMS (dyspnea on exertion) GERD (gastroesophageal reflux disease) Heart disease Hyperlipidemia Hypertension Jaw pain LBBB (left bundle branch block) Motion sickness NICM (nonischemic cardiomyopathy) (HCC) NENITA (obstructive sleep apnea) Sleep apnea Tachycardia Type 2 diabetes mellitus Social History Tobacco Use Smoking status: Former Current packs/day: 0.00 Types: Cigarettes Quit date: 08/05/2018 Years since quittin.0 Smokeless tobacco: Never Substance and Sexual Activity Drug use: Not Currently Sexual activity: Defer Alcohol Use: Not At Risk (07/12/2025) AUDIT-C Frequency of Alcohol Consumption: Never Average Number of Drinks: Patient does not drink Frequency of Binge Drinking: Never Family History Problem Relation Age of Onset Heart disease Mother Hypertension Father Cancer Father Lung cancer Sister Cancer Brother Liver disease Brother MEDICATIONS Outpatient Encounter Medications as of 08/13/2025 Medication Sig Dispense Refill acetaminophen 500 mg capsule Take 2 capsules (1,000 mg total) by mouth every 6 (six) hours as needed for pain, fever or headaches aspirin 81 mg enteric coated tablet Take 1 tablet (81 mg total) by mouth daily atorvastatin (LIPITOR) 80 mg tablet Take 1 tablet (80 mg total) by mouth nightly DULoxetine DR (CYMBALTA) 30 mg capsule Take 1 capsule (30 mg total) by mouth daily famotidine (PEPCID) 20 mg tablet Take 1 tablet (20 mg total) by mouth 2 (two) times a day methocarbamoL (ROBAXIN) 750 mg tablet Take 1 tablet (750 mg total) by mouth 3 (three) times a day 90 tablet 0 metoprolol tartrate (LOPRESSOR) 25 mg immediate release tablet TAKE 1 TABLET BY MOUTH TWICE A DAY 180 tablet 1 Mounjaro 2.5 mg/0.5 mL pen injector injection Inject 0.5 mL (2.5 mg total) under the skin once a week Tuesday senna-docusate (PERICOLACE) 8.6-50 mg Take 1 tablet by mouth 2 (two) times a day as needed for constipation 60 tablet 0 traMADoL (ULTRAM) 50 mg tablet Take 1 tablet (50 mg total) by mouth every 6 (six) hours 21 tablet 0 No facility-administered encounter medications on file as of 08/13/2025. ALLERGIES Allergies Allergen Reactions Adhesive Tape-Silicones Rash Lisinopril Cough Prochlorperazine Rash Reaction: RASH REVIEW OF SYSTEMS Review of Systems Constitutional: Negative for chills and weight gain. Cardiovascular: Positive for dyspnea on exertion and palpitations. Negative for chest pain. Respiratory: Negative for shortness of breath. Neurological: Negative for dizziness. PHYSICAL EXAM There were no vitals taken for this visit. Physical Exam Vitals reviewed. Constitutional: Appearance: He is well-developed. HENT: Head: Normocephalic and atraumatic. Cardiovascular: Rate and Rhythm: Regular rhythm. Tachycardia present. Pulmonary: Effort: Pulmonary effort is normal. Breath sounds: Normal breath sounds. Skin: General: Skin is warm and dry. Neurological: Mental Status: He is alert and oriented to person, place, and time. Psychiatric: Mood and Affect: Mood normal. LABS AND OTHER DIAGNOSTIC TESTS Lab Results Component Value Date WBC 10.73 (H) 07/31/2025 HGB 15.9 07/31/2025 HCT 48.6 07/31/2025 MCV 90.7 07/31/2025 Chemistry Component Value Date/Time SODIUM 139 07/31/2025 1149 POTASSIUM 4.4 07/31/2025 1149 CHLORIDE 103 07/31/2025 1149 CO2 18 (L) 07/31/2025 1149 BUNSER 17 07/31/2025 1149 CREATININE 1.25 07/31/2025 1149 GLUCOSE 98 07/31/2025 1149 Component Value Date/Time CALCIUM 10.1 07/31/2025 1149 ALKPHOS 191 (H) 07/31/2025 1149 AST 53 (H) 07/31/2025 1149 ALT 43 07/31/2025 1149 BILITOT 0.8 07/31/2025 1149 No results found for: CHOL No results found for: HDL No results found for: LDL] No results found for: LDLCALC No results found for: TRIG No results found for: CHOLHDL EKG 08/13/25: Sinus tachycardia rate of [address] depression noted Echo 06/04/25: Normal left ventricular size. Moderate concentric left ventricular hypertrophy. Left ventricular systolic function at the lower limit of normal. Paradoxical septal motion consistent with IVCD or bundle branch block. Impaired diastolic relaxation Grade I. Ejection fraction is measured at 51 %. Ejection Fraction is visually estimated to be 50 %. Global Longitudinal Strain is -12 %. The left atrium is normal in size.Technically difficult study with limited views. No Significant valvular dysfunction. ASSESSMENT Assessment & Plan Hx of CABG Patient returns today as he is s/p CABG x 2 on 07/11/25. He is planned to follow up with CTS on of this week. Will continue with aspirin 81 mg daily and atorvastatin 80 mg daily. Once cleared by CTS can consider referral to cardiac rehab. Coronary artery disease involving chinik coronary artery of chinik heart without angina pectoris Found to have stenosis of LAD and RCA on cath 05/2025. He underwent CABG per CTS and overall doing well. Has ABRAMS, but this appears to be chronic in nature. Will continue medical management as noted above. ABRAMS (dyspnea on exertion) Patient reports SOB with any activity, this however, is not unusual for him, but seems more noticeable to him. His echo prior to surgery demonstrated an EF of 50% with no significant valvular abnormalities. He had labs on 07/31 that did not suggest any anemia or electrolyte disturbance. Will update pBNP and d-dimer, but no obvious overload on exam. His O2 saturation is normal as well. He is tachyca rdic which may be contributing. Will adjust metoprolol for better rate control. Tachycardia Patient with known history of sinus tachycardia. EKG today shows sinus tachycardia rate of 128 bpm.Will increase Metoprolol to 50 mg BID and monitor. He is planned to see CTS on and have reached out to their LOSS PREVENTION INVESTIGATOR to let them know of medication change in office today. Prudence Davis NP PLATE STAMPER documented in this encounter Miscellaneous Notes * Assessment & Plan Note - Prudence Davis NP - 08/13/2025 11:00 AM CSTAssociated Problem(s): Hx of CABG Patient returns today as he is s/p CABG x 2 on 07/11/25. He is planned to follow up with CTS on of this week. Will continue with aspirin 81 mg daily and atorvastatin 80 mg daily. Once cleared by CTS can consider referral to cardiac rehab. PLATE STAMPER PLATE STAMPER PLATE STAMPER * Assessment & Plan Note - Prudence Davis NP - 08/13/2025 11:00 AM CSTAssociated Problem(s): Coronary artery disease involving chinik coronary artery of chinik heart without angina pectoris Found to have stenosis of LAD and RCA on cath 05/2025. He underwent CABG per CTS and overall doing well. Has ABRAMS, but this appears to be chronic in nature. Will continue medical management as noted above. PLATE STAMPER PLATE STAMPER PLATE STAMPER * Assessment & Plan Note - Prudence Davis NP - 08/13/2025 11:00 AM CSTAssociated Problem(s): ABRAMS (dyspnea on exertion) Patient reports SOB with any activity, this however, is not unusual for him, but seems more noticeable to him. His echo prior to surgery demonstrated an EF of 50% with no significant valvular abnormalities. He had labs on 07/31 that did not suggest any anemia or electrolyte disturbance. Will update pBNP and d-dimer, but no obvious overload on exam. His O2 saturation is normal as well. He is tachyca rdic which may be contributing. Will adjust metoprolol for better rate control. PLATE STAMPER * Assessment & Plan Note - Prudence Davis NP - 08/13/2025 11:00 AM CSTAssociated Problem(s): Tachycardia Patient with known history of sinus tachycardia. EKG today shows sinus tachycardia rate of 128 bpm.Will increase Metoprolol to 50 mg BID and monitor. He is planned to see CTS on and have reached out to their LOSS PREVENTION INVESTIGATOR to let them know of medication change in office today. PLATE STAMPER documented in this encounter Plan of Treatment Scheduled Orders Name Type Priority Associated Diagnoses Orde r Schedule Pro B-type natriuretic peptide Lab Routine ABRAMS (dyspnea on exertion) Tachycardia Expected: 08/16/2025, Expires: 08/13/2026 D-dimer, quantitative Lab Routine ABRAMS (dyspnea on exertion) Tachycardia Expected: 08/16/2025, Expires: 08/13/2026 documented as of this encounter Procedures Procedure Name Priority Date/Time Associated Diagnosis Comments ECG 12-LEAD Routine 08/13/2025 11:32 AM NAME PLATE STAMPER Hx of CABG documented in this encounter Results * ECG 12 lead (08/13/2025 11:32 AM NAME PLATE STAMPER) Prudence Middleton Yayaankurjilliangem LOSS PREVENTION INVESTIGATOR ECG ORDERABLES Fi nal Result documented in this encounter Visit Diagnoses Diagnosis Hx of CABG- Primary Postsurgical aortocoronary bypass status Coronary artery disease involving chinik coronary artery of chinik heart without angina pectoris ABRAMS (dyspnea on exertion) Other dyspnea and respiratory abnormality Tachycardia Unspecified tachycardia documented in this encounter Discontinued Medications Medication Sig Discontinue Reason Start Date End Da te traMADoL (ULTRAM) 50 mg tablet Take 1 tablet (50 mg total) by mouth every 6 (six) hours Therapy completed 07/19/2025 08/13/2025 metoprolol tartrate (LOPRESSOR) 25 mg immediate release tablet TAKE 1 TABLET BY MOUTH TWICE A DAY 08/08/2025 08/13/2025 documented as of this encounter Care Teams Soda Worker Relationship Specialty Start Date End Date Neptali Mcgrath DO PCP - General Internal Medicine 04/16/22 [place] [id number] [place] [address] Surgeon Cardiothoracic Surgery 07/16/25 Gordo Fajardo MD [address] [place] [address] Consulting Physician Cardiology 07/16/25 Miscellaneous, Not In File 07/16/25 documented as of this encounter
[2025-08-13 13:14] LABS: NT Pro B Type Natriuretic Pept 713 pg/mL (19.9-100)
--- OUTSIDE RECORDS SUMMARY | 2025-08-13 14:15 | XMS_ITS | Clinical Summary ---
Author Organization [facility] Address [address] [place] [address] Care Team Providers Care Software Integrator Name Role Phone Neptali Mcgrath DO Primary Care Provider [phone] Source Comments [facility],non-owned Affiliates and Associated Physician Practices is amultiple site organization consisting of ambulatory clinics and hospital sitesin [place], [place], [place] and [place]. This disclosure is being madepursuant to the Care Everywhere program and may not contain all information available regarding this patient. Last updated 18.[facility] Allergies Active Allergy Reactions Criticality Noted Date [...] CALENDAR YEAR 2024 COVID-19 VACCINE (1 - 2024-2 6 season) 2025 INFLUENZA VACCINE (#1) 2025 HIB [...] to complete this topic Insurance [facility] MEDICARE ADV HMO & PPO [id number] [id number] Care Teams Software Integrator Relationship Specialty Start Date End Date Neptali Mcgrath DO PCP - General 02/26/21
--- OUTSIDE RECORDS SUMMARY | 2025-08-13 14:15 | XMS_ITS | Encounter Summary ---
Author Organization [facility] Address [address] [place] [address] Care Team Providers Care Cancer Spec Name Role Phone Neptali Mcgrath DO Primary Care Provider [phone]- [phone] Bobby Diaz MD Unavailable [phone] Gordo Fajardo MD Unavailable [phone] Miscellaneous, Not In File Unavailable Unava ilable Encounter Details Date Type Department Care Team (Late st Contact Info) Description 09/25/2015 Orders Only [facility] Information Management [address] [place] [address] Scanning, Provider Social History Tobacco Use Types Packs/Day Years Used Date Smoking Tobacco: Never Sex and Gender Information Value Date Recorded Sex Assigned at Not on file Legal Sex Male 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
--- OUTSIDE RECORDS SUMMARY | 2025-08-13 14:16 | XMS_ITS | Clinical Summary ---
Author Organization [facility] [address] Address [address] [place] [address] Care Team Providers Care Grid Trimmer Name Role Phone Neptali Mcgrath DO Primary Care Provider [phone] Bobby Diaz MD Unavailable [phone] Antonio Fajardo MD Unavailable [phone] Miscellaneous, Not In File Unavailable Unava ilable Allergies Active Allergy Reactions Criticality Noted Date Comments Adhesive Tape-Silicones Rash Medium Lisinopril Cough Medium 09/18/2018 Prochlorperazine Rash Medium Reaction: RASH Medications aspirin 81 mg enteric coated tablet Take 1 tablet (81 mg total) by mouth daily Active DULoxetine DR (CYMBALTA) 30 mg capsule Take 1 capsule (30 mg total) by mouth daily Active Mounjaro 2.5 mg/0.5 mL pen injector injection Inject 0.5 mL (2.5 mg total) under the skin once a week Tuesday 025 Active atorvastatin (LIPITOR) 80 mg tablet Take 1 tablet (80 mg total) by mouth nightly 025 Active famotidine (PEPCID) 20 mg tablet Take 1 tablet (20 mg total) by mouth 2 (two) times a day Active acetaminophen 500 mg capsuleIndicati ons:Pain Take 2 capsules (1,000 mg total) by mouth every 6 (six) hours as needed for pain, fever or headaches 025 Active senna-docusate (PERICOLACE) 8.6-50 mgIndications:c onstipation Take 1 tablet by mouth 2 (two) times a day as needed for constipation 60 tablet 025 2024 Active methocarbamoL (ROBAXIN) 750 mg tablet Take 1 tablet (750 mg total) by mouth 3 (three) times a day 90 tablet 025 2025 Active metoprolol tartrate (LOPRESSOR) 25 mg immediate release tablet Take 2 tablets (50 mg total) by mouth 2 (two) times a day 360 tablet 2 Active nitroglycerin (NITROSTAT) 0.4 mg SL tablet 019 2024 Discontinued(S top Taking at Discharge) glimepiride (AMARYL) 4 mg tablet Take 1 tablet (4 mg total) by mouth daily before breakfast 024 2024 Discontinued(S top Taking at Discharge) isosorbide mononitrate ER (IMDUR) 60 mg 24 hr tabletIndicatio ns:Coronary artery disease of [place] artery of [place] heart with stable angina pectoris TAKE 1 TABLET BY MOUTH EVERY DAY 90 tablet 2 025 2024 Discontinued(S top Taking at Discharge) carvediloL (COREG) 25 mg tablet TAKE 1 TABLET BY MOUTH TWO TIMES A DAY WITH MEALS. 180 tablet 3 2024 Discontinued(S top Taking at Discharge) spironolactone (ALDACTONE) 25 mg tabletIndicatio ns:Coronary artery disease of [place] artery of [place] heart with stable angina pectoris,NICM (nonischemic cardiomyopathy) ([facility]),Essential hypertension TAKE 1 TABLET BY MOUTH EVERY DAY 90 tablet 2 025 2024 Discontinued losartan (COZAAR) 50 mg tablet Take 1 tablet (50 mg total) by mouth daily 2024 Discontinued(S top Taking at Discharge) methocarbamoL (ROBAXIN) 500 mg tabletIndicatio ns:Muscle Spasm Take 1 tablet (500 mg total) by mouth 3 (three) times a day as needed for muscle spasms for up to 7 days 21 tablet 025 2024 metoprolol tartrate (LOPRESSOR) 25 mg immediate release tablet Take 0.5 tablets (12.5 mg total) by mouth 2 (two) times a day 30 tablet 1 025 2024 Discontinued(R eorder) furosemide (LASIX) 40 mg tablet Take 1 tablet (40 mg total) by mouth daily 7 tablet 025 2024 Discontinued(T herapy completed) spironolactone (ALDACTONE) 25 mg tabletIndicatio ns:Coronary artery disease of [place] artery of [place] heart with stable angina pectoris,NICM (nonischemic cardiomyopathy) ([facility]),Essential hypertension Take 0.5 tablets (12.5 mg total) by mouth daily for 7 days, THEN 1 tablet (25 mg total) daily. 025 2024 Discontinued(T herapy completed) oxyCODONE (ROXICODONE) 5 mg immediate release tabletIndicatio ns:Pain Take 1 tablet (5 mg total) by mouth every 4 (four) hours as needed for pain 18 tablet 2024 Discontinued(A lternate therapy) traMADoL (ULTRAM) 50 mg tablet Take 1 tablet (50 mg total) by mouth every 6 (six) hours 21 tablet 025 2024 Discontinued(T herapy completed) metoprolol tartrate (LOPRESSOR) 25 mg immediate release tablet Take 1 tablet (25 mg total) by mouth 2 (two) times a day 30 tablet 1 025 2024 Discontinued(R eorder) metoprolol tartrate (LOPRESSOR) 25 mg immediate release tablet TAKE 1 TABLET BY MOUTH TWICE A DAY 180 tablet 1 025 2024 Discontinued Active Problems Problem Noted Date Diagnosed Date Hx of CABG 08/13/2025 Assessment & Plan (08/13/2025 11:56 AM [facility]): Patient returns today as he is s/p CABG x 2 on 07/11/25. He is planned to follow up with CTS on of this week. Will continue with aspirin 81 mg daily and atorvastatin 80 mg daily. Once cleared by CTS can consider referral to cardiac rehab. Coronary artery disease (CAD) excluded Coronary artery disease of n ative heart with stable angina pectoris 07/02/2025 Tachycardia 06/04/2025 Assessment & Plan (08/13/2025 11:56 AM [facility] [employer]): Patient with known history of sinus tachycardia. EKG today shows sinus tachycardia rate of 128 bpm. Will increase Metoprolol to 50 mg BID and monitor. He is planned to see CTS on and have reached out to their CLIENT APPLICATION SUPPORT SPECIALIST to let them know of medication change in office today. Claudication 11/27/2024 Jaw pain 09/29/2021 Burning chest pain 09/29/2021 Atherosclerosis of right iliac artery 03/31/2021 Erectile dysfunction 05/03/2019 Abnormal echocardiogram 10/06/2018 Coronary artery disease invo lving [place] coronary artery of [place] heart without angina pectoris 10/06/2018 Assessment & Plan (08/13/2025 11:56 AM [facility] [employer]): Found to have stenosis of LAD and RCA on cath 05/2025. He underwent CABG per CTS and overall doing well. Has ABRAMS, but this appears to be chronic in nature. Will continue medical management as noted above. NICM (nonischemic cardiomyopathy) 10/06/2018 Essential hypertension 10/06/2018 ABRAMS (dyspnea on exertion) 10/06/2018 Assessment & Plan (08/13/2025 11:56 AM [facility] [employer]): Patient reports SOB with any activity, this [...] saturation is normal as well. He is tachycardic which may be contributing. Will adjust metoprolol for better rate control. LBBB (left bundle branch block) 10/06/2018 History of tobacco abuse 10/06/2018 NENITA (obstructive sleep apnea) 10/06/2018 Tingling of skin 09/06/2011 Encounters Date Type Department Care Team Description 08/13/2025 11:00 AM [facility] [employer] Office Visit [facility] Cardiology [address] [place] [address] Prudence Davis NP Hx of CABG (Primary Dx); Coronary artery disease involving [place] coronary artery of [place] heart without angina pectoris; ABRAMS (dyspnea on exertion); Tachycardia 07/31/2025 11:25 AM [facility] Lab [address] [phone] 07/31/2025 Orders Only [facility] Surgery [address] [place] [address] [place] [phone] Dulce Maria Hayes, POONAM 07/22/2025 Documentation [facility] Medicine Surgery [address] [place] [phone] Dulce Maria Hayes NP Med Increase- patient call 07/19/2025 Orders Only [facility] Surgery [address] [place] [phone] Lottie Degroot NP 07/16/2025 Orders Only [facility] Surgery [address] [place] [phone] Ramiro Leigh NP 07/11/2025 8:00 AM [facility] [employer] - 07/11/2025 1:30 PM [facility] Surgery [facility] Operating Room [address] [place] [phone] Bobby Diaz MD CORONARY ARTERY BYPASS GRAFT X 2 WITH LEFT INTERNAL MAMMARY ARTERY AND LEFT RADIAL ENDOHARVEST 07/11/2025 7:51 AM [employer] [employer] Anesthesia Event [facility] Operating Room [address] [place] [phone] Elizabeth Herrera MD Barnhart, Lynlee Jo, NP 07/11/2025 6:40 AM [employer] [employer] Ancillary Procedure [facility] Operating Room [address] [place] [phone] 07/11/2025 5:41 AM [employer] [employer] - 07/16/2025 4:55 PM [facility] [employer] Hospital Encounter [address] [address] Bobby Diaz MD Coronary artery disease of [place] artery of [place] heart with stable angina pectoris (Primary Dx); NENITA (obstructive sleep apnea); Coronary artery disease (CAD) excluded; NICM (nonischemic cardiomyopathy) (HCC); Essential hypertension Discharge Disposition: Discharge to home, home health skilled care 07/08/2025 9:45 AM [employer] [employer] Pre-Admission Testing [facility] Pre Anesthesia Testing [address] [place] [address] Encounter for preadmission testing (Primary Dx); Coronary artery disease of [place] heart with stable angina pectoris, unspecified vessel or lesion type; Shortness of breath; Type 2 diabetes mellitus with unspecified complications 07/05/2025 Documentation [facility] Medicine Surgery [address] [place] [phone] Dulce Maria Hayes NP Pre-op GLP1 07/04/2025 [facility] Post Discharge Follow up phone call [facility] Emergency Department [address] [place], [place] [phone] Isiah Luevano RN 07/02/2025 1:30 PM [employer] [employer] Office Visit [facility] Surgery [address] [place] [phone] Bobby Diaz MD Coronary artery disease of [place] artery of [place] heart with stable angina pectoris (Primary Dx) 06/28/2025 9:55 PM CDT - 06/29/2025 1:11 AM CDT Emergency [facility] Emergency Department [address] [place] [address] Ashwin Guevara MD Chest pain, unspecified type (Primary Dx) Discharge Disposition: Discharge to home or self care 06/20/2025 11:00 AM CDT - 06/20/2025 12:30 PM CDT Surgery [facility] Cardiac Catheterization Lab [address] [place] [phone] Larry Cheung MD LEFT HEART CATHETERIZATION WITH CORONARY ANGIOGRAPHY AND WITH OR WITHOUT LEFT VENTRICULOGRAM [id number] 06/20/2025 9:13 AM CDT - 06/20/2025 5:00 PM CDT Hospital Encounter [facility] Cardiac Catheterization Lab [address] [place] [phone] Larry Cheung MD Coronary artery disease of [place] artery of [place] heart with stable angina pectoris; Burning chest pain Discharge Disposition: Discharge to home or self care 06/18/2025 Results Follow-Up [facility] Cardiology [address] [facility] [address] [place] [phone] Antonio Fajardo MD Transthoracic Echo (TTE) Complete W Doppler/CF 06/18/2025 Telephone [facility] Cardiology [address] [place] [address] [place] [phone] Antonio Fajardo MD 06/14/2025 Telephone [facility] Cardiology [address] [place] [address] [place] [phone] Antonio Fajardo MD 06/13/2025 8:15 AM CDT Ancillary Procedure [place] [address] [place] [phone] LBBB (left bundle branch block); NICM (nonischemic cardiomyopathy) (HCC) 06/04/2025 2:30 PM CDT Ancillary Procedure [place] [address] [place] [phone] Coronary artery disease of [place] artery of [place] heart with stable angina pectoris; Tachycardia 06/04/2025 1:15 PM CDT Office Visit [place] [address] [place] [phone] Antonio Fajardo MD Coronary artery disease of [place] artery of [place] heart with stable angina pectoris (Primary Dx); Essential hypertension; LBBB (left bundle branch block); NICM (nonischemic cardiomyopathy) (HCC); NENITA (obstructive sleep apnea); Burning chest pain; Tachycardia 06/04/2025 Telephone [place] [address] [place] [phone] Larry Cheung MD from Last 3 Months Surgical History Surgery Date Site/Laterality Comments CERVICAL SPINE SURGERY LUMBAR FUSION SPINAL CORD STIMULATOR IMPLANT per patient, still implanted, hasn't worked in years CARDIAC CATHETERIZATION 06/20/2025 N/A Procedure: LEFT HEART CATHETERIZATION WITH CORONARY ANGIOGRAPHY AND WITH OR WITHOUT LEFT VENTRICULOGRAM [id number]; Surgeon: Larry Cheung MD; Location: CARDIAC CROWNING INSPECTOR; Service: Cardiovascular; Laterality: N/A; CARDIAC CATHETERIZATION 06/20/2025 N/A Procedure: IVUS/OCT CORS OR GRAFTS, FIRST VESSEL (+) [id number]; Surgeon: Larry Cheung MD; Location: CARDIAC CROWNING INSPECTOR; Service: Cardiovascular; Laterality: N/A; NASAL SEPTUM SURGERY CORONARY ARTERY BYPASS GRAFT 07/11/2025 Chest/N/A Procedure: CORONARY ARTERY BYPASS GRAFT X 2 WITH LEFT INTERNAL MAMMARY ARTERY AND LEFT RADIAL ENDOHARVEST; Surgeon: Bobby Diaz MD; Location: OPERATING ROOM; Service: Cardiothoracic; Laterality: N/A; Medical History Medical History Date Comments Heart disease Hyperlipidemia Sleep apnea Coronary artery disease ABRAMS (dyspnea on exertion) Type 2 diabetes mellitus Motion sickness NICM (nonischemic cardiomyopathy) (HCC) Hypertension LBBB (left bundle branch block) Atherosclerosis of right iliac artery Claudication Tachycardia Jaw pain NENITA (obstructive sleep apnea) GERD (gastroesophageal reflux disease) Anxiety Family History Medical History Relation Name Comments Cancer Brother Liver disease Brother Cancer Father Hypertension Father Heart disease Mother Lung cancer Sister Relation Name Status Comments Brother Father Mother Sister Social History Tobacco Use Types Packs/Day Years Used Date Smoking Tobacco: Former Cigarettes Q uit: 08/05/2018 Smokeless Tobacco: Never Tobacco Cessation:Counseling Given: Not Answered Alcohol Use Standard Drinks/Week Comments Never 0 [...] week 07/12/2025 How often do you attend [facility] or islam services? Never 07/12/2025 Do you belong to any clubs o r organizations such as restoration groups, unions, fraternal or athletic groups, or [...] any time in the past 12 [facility], were you homeless or living in a [facility] (including now)? No 07/12/2025 [facility] Utilities Answer Date Recorded In the past 12 months has e [employer], gas, oil, or water [employer] threatened to shut off services in your home? No 07/12/2025 Personal Safety Answer Date Recorded Have you ever been in or are you currently in a harmful physical or emotional relationship or is someone making you feel afraid or unsafe? Denies 07/11/2025 Sex and Gender Information Value Date Recorded Sex Assigned at Not on file Legal Sex Male 12:50 PM [employer] [employer] Gender Identity Not on file Sexual Orientation Not on file Last Filed Vital Signs Vital Sign Reading Time Taken Comments Blood Pressure 130/90 08/13/2025 11:09 AM [employer] [employer] Pulse 124 08/13/2025 11:09 AM [employer] Temperature 36.4 C (97.5 F) 07/16/2025 12:04 PM [employer] [employer] Respiratory Rate 17 07/16/2025 12:0 4 PM [employer] [employer] Oxygen Saturation 96% 08/13/2025 11: 09 AM [employer] [employer] Inhaled Oxygen Concentration - - Weight 84.8 kg (186 lb 14.4 oz) 025 11:09 AM [employer] [employer] Height 172.7 cm (5' 8) 08/13/2025 11:0 9 AM [employer] [employer] Body Mass Index 28.42 08/13/2025 11:09 AM [employer] [employer] Plan of Treatment Health Maintenance Due Date Last Done Comments Albumin Creatinine Ratio, Urine 1971 Colon Cancer Screening-Colonoscopy 1971 Depression Screening 1971 Hepatitis C Screening 1971 Prostate Cancer Screening-PSA 1971 Dilated Eye Exam 1971 Foot Exam 1971 DTaP/Tdap/Td Vaccine (1 - Tdap) 1982 Hepatitis B Screening 1989 Regular Well Visit/Exam 18-64 1989 Pneumococcal vaccine <65 (1 of 2 - PCV) 1990 Zoster Vaccine (1 of 2) 2021 Influenza Vaccine (#1) 2025 Lipid Panel 11/27/2025 11/27/2024, 03/29, 03/31/2023, Additional history exists Hemoglobin A1C 01/05/2026 07/08/2025 eGFR 07/31/2026 07/31/2025, 06/29, 07/15/2025, Additional history exists Procedures Procedure Name Priority Date/Time Associated Diagnosis Comments ECG 12-LEAD Routine 08/13/2025 11:32 AM [facility] [employer] Hx of CABG EGFR Routine 07/31/2025 11:49 AM [employer] [employer] DIFFERENTIAL AUTO Routine 07/31/2025 11:49 AM [employer] [employer] CBC WITH AUTO DIFFERENTIAL Routine 07/31/2025 11:49 AM [employer] [employer] COMPREHENSIVE METABOLIC PANEL Routine 07/31/2025 11:49 AM [employer] [employer] POCT GLUCOSE DEVICE Routine 07/16/2025 11:48 AM [employer] XR CHEST PA LATERAL 2 VIEWS IP Routine 07/16/2025 8:23 AM [employer] POCT GLUCOSE DEVICE Routine 07/16/2025 7 :36 AM [employer] [employer] EGFR Timed 07/16/2025 2:14 AM [employer] [employer] [facility] BASIC METABOLIC PANEL Timed 07/16/2025 2:14 AM [employer] [employer] APTT Routine 07/16/2025 2:12 AM [employer] [employer] [facility] PROTIME-INR Routine 07/16/2025 2:12 AM [employer] [employer] CBC WITHOUT DIFFERENTIAL Routine 07/16/2025 2:12 AM [employer] [employer] POCT GLUCOSE DEVICE Routine 07/16/2025 2 :08 AM [employer] [employer] POCT GLUCOSE DEVICE Routine 07/15/2025 9 :02 PM [employer] [employer] POCT GLUCOSE DEVICE Routine 07/15/2025 5 :09 PM [employer] [employer] POCT GLUCOSE DEVICE Routine 07/15/2025 12:44 PM [employer] [employer] POCT GLUCOSE DEVICE Routine 07/15/2025 7 :33 AM [employer] [employer] XR CHEST 1 VIEW Timed 07/15/2025 6:49 AM [employer] [employer] EGFR Timed 07/15/2025 5:58 AM [facility] [employer] BASIC METABOLIC PANEL Timed 07/15/2025 5:58 AM [facility] MAGNESIUM Routine 07/15/2025 5:58 AM [facility] CBC WITHOUT DIFFERENTIAL Routine 07/15/2025 5:58 AM [facility] [employer] POCT GLUCOSE DEVICE Routine 07/15/2025 2 :52 AM [facility] [facility] POCT GLUCOSE DEVICE Routine 07/14/2025 8 :24 PM [facility] EGFR Timed 07/14/2025 1:24 PM [employer] [employer] CBC WITHOUT DIFFERENTIAL Timed 07/14/2025 1:24 PM [facility] CALCIUM,IONIZED, WHOLE BLOOD Timed 07/14/2025 1:24 PM [facility] [employer] MAGNESIUM Timed 07/14/2025 1:24 PM [facility] [facility] RENAL FUNCTION PANEL Timed 07/14/2025 1:24 PM [facility] [employer] POCT GLUCOSE DEVICE Routine 07/14/2025 12:04 PM [employer] [employer] POCT GLUCOSE DEVICE Routine 07/14/2025 7 :26 AM [employer] [employer] CRITICAL CARE Routine 07/14/2025 6:49 AM [employer] [employer] NENITA (obstructive sleep apnea) XR CHEST 1 VIEW Timed 07/14/2025 6:23 AM [employer] [employer] POTASSIUM, WHOLE BLOOD STAT 6:05 AM [facility] [employer] OXYHEMOGLOBIN, CENTRAL VENOUS STAT 07/14/2025 4:54 AM [employer] [employer] POCT GLUCOSE DEVICE Routine 07/14/2025 4 :46 AM [facility] [employer] EGFR Timed 07/14/2025 4:38 AM [facility] [employer] BASIC METABOLIC PANEL Timed 07/14/2025 4:38 AM [facility] [employer] MAGNESIUM Routine 07/14/2025 4:38 AM [facility] [employer] CBC WITHOUT DIFFERENTIAL Routine 07/14/2025 4:38 AM [facility] [employer] EGFR STAT 07/13/2025 10:18 PM [facility] MAGNESIUM STAT 07/13/2025 10:18 PM [employer] [employer] CALCIUM,IONIZED, WHOLE BLOOD STAT 07/13/2025 10:18 PM [employer] [employer] BASIC METABOLIC PANEL STAT 07/13/2025 10:18 PM [employer] [employer] POCT GLUCOSE DEVICE Routine 07/13/2025 7 :50 PM [employer] POCT GLUCOSE DEVICE Routine 07/13/2025 5 :10 PM [facility] [employer] EGFR Timed 07/13/2025 2:46 PM [employer] [employer] CBC WITHOUT DIFFERENTIAL Timed 07/13/2025 2:46 PM [employer] [employer] CALCIUM,IONIZED, WHOLE BLOOD Timed 07/13/2025 2:46 PM [employer] [employer] MAGNESIUM Timed 07/13/2025 2:46 PM [employer] [employer] RENAL FUNCTION PANEL Timed 07/13/2025 2:46 PM [employer] [employer] POCT GLUCOSE DEVICE Routine 07/13/2025 12:11 PM [employer] [employer] POCT GLUCOSE DEVICE Routine 07/13/2025 8 :02 AM [employer] [employer] CRITICAL CARE Routine 07/13/2025 7:00 AM [employer] [employer] NENITA (obstructive sleep apnea) XR CHEST 1 VIEW Timed 07/13/2025 6:08 AM [employer] [employer] POCT GLUCOSE DEVICE Routine 07/13/2025 2 :24 AM [facility] [employer] EGFR Timed 07/13/2025 2:09 AM [facility] [facility] OXYHEMOGLOBIN, CENTRAL VENOUS Routine 07/13/2025 2:09 AM [employer] [employer] CALCIUM,IONIZED, WHOLE BLOOD Timed 07/13/2025 2:09 AM [facility] [employer] BASIC METABOLIC PANEL Timed 07/13/2025 2:09 AM [facility] [employer] MAGNESIUM Routine 07/13/2025 2:09 AM [facility] [employer] CBC WITHOUT DIFFERENTIAL Routine 07/13/2025 2:09 AM [facility] [employer] CRITICAL CARE Routine 07/12/2025 10:29 PM [facility] Coronary artery disease (CAD) excluded OXYHEMOGLOBIN, CENTRAL VENOUS STAT 07/12/2025 10:25 PM [employer] [employer] EGFR Routine 07/12/2025 10:06 PM [facility] [facility] MAGNESIUM Routine 07/12/2025 10:06 PM [employer] [employer] BASIC METABOLIC PANEL Routine 07/12/2025 10:06 PM [employer] [employer] POCT GLUCOSE DEVICE Routine 07/12/2025 8 :35 PM [employer] [employer] POCT GLUCOSE DEVICE Routine 07/12/2025 7 :14 PM [employer] [employer] POCT GLUCOSE DEVICE Routine 07/12/2025 4 :53 PM [employer] [employer] POCT GLUCOSE DEVICE Routine 07/12/2025 3 :48 PM [facility] EGFR Timed 07/12/2025 1:48 PM [facility] CALCIUM,IONIZED, WHOLE BLOOD Timed 07/12/2025 1:48 PM [facility] [facility] MAGNESIUM Timed 07/12/2025 1:48 PM [employer] [employer] RENAL FUNCTION PANEL Timed 07/12/2025 1:48 PM [employer] [employer] POCT GLUCOSE DEVICE Routine 07/12/2025 1 :46 PM [employer] [employer] POCT GLUCOSE DEVICE Routine 07/12/2025 11:56 AM [employer] [employer] POCT GLUCOSE DEVICE Routine 07/12/2025 11:09 AM [facility] [facility] POCT GLUCOSE DEVICE Routine 07/12/2025 10:11 AM [facility] [employer] POCT GLUCOSE DEVICE Routine 07/12/2025 9 :01 AM [facility] [employer] EGFR STAT 07/12/2025 7:57 AM [facility] CBC WITHOUT DIFFERENTIAL STAT 07/12/2025 7:57 AM [facility] [facility] BASIC METABOLIC PANEL STAT 07/12/2025 7:57 AM [facility] MAGNESIUM STAT 07/12/2025 7:57 AM [facility] [facility] CALCIUM,IONIZED, WHOLE BLOOD STAT 07/12/2025 7:57 AM [facility] POCT GLUCOSE DEVICE Routine 07/12/2025 7 :49 AM [facility] [employer] ECG 12-LEAD STAT 07/12/2025 7:41 AM [facility] CRITICAL CARE Routine 07/12/2025 6:59 AM [facility] [facility] NENITA (obstructive sleep apnea) POCT GLUCOSE DEVICE Routine 07/12/2025 6 :56 AM [employer] [employer] XR CHEST 1 VIEW Timed 07/12/2025 6:29 AM [employer] [employer] POCT GLUCOSE DEVICE Routine 07/12/2025 6 :08 AM [facility] POCT GLUCOSE DEVICE Routine 07/12/2025 4 :51 AM [employer] [employer] POCT GLUCOSE DEVICE Routine 07/12/2025 3 :47 AM [facility] POCT GLUCOSE DEVICE Routine 07/12/2025 2 :36 AM [facility] EGFR Timed 07/12/2025 2:05 AM [facility] [facility] CALCIUM,IONIZED, WHOLE BLOOD Routine 07/12/2025 2:05 AM [facility] [facility] BASIC METABOLIC PANEL Timed 07/12/2025 2:05 AM [facility] OXYHEMOGLOBIN, PULMONARY ARTERY Routine 07/12/2025 2:05 AM [facility] MAGNESIUM Routine 07/12/2025 2:05 AM [facility] CBC WITHOUT DIFFERENTIAL Routine 07/12/2025 2:05 AM [facility] POCT GLUCOSE DEVICE Routine 07/12/2025 1 :43 AM [facility] [employer] POCT GLUCOSE DEVICE Routine 07/12/2025 12:34 AM [facility] BLOOD GAS, ARTERIAL STAT 07/12/2025 12:29 AM [facility] [employer] POCT GLUCOSE DEVICE Routine 07/11/2025 11:26 PM [facility] CRITICAL CARE Routine 07/11/2025 11:00 PM [facility] NENITA (obstructive sleep apnea) BLOOD GAS, ARTERIAL STAT 07/11/2025 10:20 PM [facility] POCT GLUCOSE DEVICE Routine 07/11/2025 10:07 PM [facility] EGFR Routine 07/11/2025 10:03 PM [facility] CBC WITHOUT DIFFERENTIAL Routine 07/11/2025 10:03 PM [facility] [facility] CALCIUM,IONIZED, WHOLE BLOOD Routine 07/11/2025 10:03 PM [facility] MAGNESIUM Routine 07/11/2025 10:03 PM [facility] BASIC METABOLIC PANEL Routine 07/11/2025 10:03 PM [facility] POCT GLUCOSE DEVICE Routine 07/11/2025 9 :13 PM [facility] POCT GLUCOSE DEVICE Routine 07/11/2025 8 :11 PM [facility] POCT GLUCOSE DEVICE Routine 07/11/2025 6 :53 PM [facility] [employer] [facility] POCT GLUCOSE DEVICE Routine 07/11/2025 5 :58 PM [facility] EGFR Timed 07/11/2025 5:12 PM [facility] BLOOD GAS, ARTERIAL Timed 07/11/2025 5 :12 PM [facility] MAGNESIUM Timed 07/11/2025 5:12 PM [facility] CBC WITHOUT DIFFERENTIAL Timed 07/11/2025 5:12 PM [facility] PROTIME-INR Timed 07/11/2025 5:12 PM [facility] BASIC METABOLIC PANEL Timed 07/11/2025 5:12 PM [facility] POCT GLUCOSE DEVICE Routine 07/11/2025 4 :42 PM [facility] POCT GLUCOSE DEVICE Routine 07/11/2025 3 :21 PM [facility] POCT GLUCOSE DEVICE Routine 07/11/2025 2 :24 PM [facility] CRITICAL CARE Routine 07/11/2025 2:17 PM [facility] Coronary artery disease (CAD) excluded XR CHEST 1 VIEW ED Urgent/IP Urgent 07/11/2025 2:15 PM [facility] EGFR STAT 07/11/2025 2:14 PM [facility] LACTATE STAT 07/11/2025 2:14 PM [facility] APTT STAT 07/11/2025 2:14 PM [facility] PROTIME-INR STAT 07/11/2025 2:14 PM [facility] CBC WITHOUT DIFFERENTIAL STAT 07/11/2025 2:14 PM [facility] BLOOD GAS, ARTERIAL STAT 07/11/2025 2 :14 PM [facility] CALCIUM,IONIZED, WHOLE BLOOD STAT 07/11/2025 2:14 PM [facility] MAGNESIUM STAT 07/11/2025 2:14 PM [facility] BASIC METABOLIC PANEL STAT 07/11/2025 2:14 PM [facility] POC BLOOD GAS AND CHEMISTRIES, ARTERIAL Routine 07/11/2025 1:34 PM [facility] POCT ACTIVATED CLOTTING TIME, HIGH RANGE Routine 07/11/2025 1:05 PM [facility] PLATELET COUNT STAT 07/11/2025 12:57 PM [facility] ANESTHESIA BRENDA Routine 07/11/2025 12:54 PM [facility] TRANSFUSE PLATELETS Timed 07/11/2025 12:46 PM [facility] POC BLOOD GAS AND CHEMISTRIES, ARTERIAL Routine 07/11/2025 12:38 PM [facility] POCT ACTIVATED CLOTTING TIME, HIGH RANGE Routine 07/11/2025 12:34 PM [facility] POC BLOOD GAS AND CHEMISTRIES, ARTERIAL Routine 07/11/2025 11:36 AM [facility] POCT ACTIVATED CLOTTING TIME, HIGH RANGE Routine 07/11/2025 11:34 AM [facility] PLATELET COUNT STAT 07/11/2025 11:20 AM [facility] POC BLOOD GAS AND CHEMISTRIES, ARTERIAL Routine 07/11/2025 11:04 AM [facility] POCT ACTIVATED CLOTTING TIME, HIGH RANGE Routine 07/11/2025 11:02 AM [facility] POC BLOOD GAS AND CHEMISTRIES, ARTERIAL Routine 07/11/2025 10:37 AM [facility] POC BLOOD GAS AND CHEMISTRIES, ARTERIAL Routine 07/11/2025 10:25 AM [facility] POCT ACTIVATED CLOTTING TIME, HIGH RANGE Routine 07/11/2025 10:23 AM [facility] POC BLOOD GAS AND CHEMISTRIES, ARTERIAL Routine 07/11/2025 9:51 AM [facility] POCT ACTIVATED CLOTTING TIME, HIGH RANGE Routine 07/11/2025 9:46 AM [facility] OR AN CENTRAL LINE MULTI LUMEN Routine 07/11/2025 8:25 AM [facility] ANESTHESIA CENTRAL VENOUS LINE PLACEMENT Routine 07/11/2025 8:25 AM [facility] OR AN ELECTIVE ENDOTRACHEAL AIRWAY Routine 07/11/2025 8:24 AM [facility] ANESTHESIA ARTERIAL LINE PLACEMENT Routine 07/11/2025 8:24 AM [facility] POC BLOOD GAS AND CHEMISTRIES, ARTERIAL Routine 07/11/2025 8:20 AM [facility] POCT ACTIVATED CLOTTING TIME, HIGH RANGE Routine 07/11/2025 8:16 AM [facility] CORONARY ARTERY BYPASS GRAFT. 07/11/2025 7:51 AM [facility] Coronary artery disease of [place] heart with stable angina pectoris, unspecified vessel or lesion type B CHECK SAMPLE STAT 07/11/2025 7:17 AM [facility] POTASSIUM, WHOLE BLOOD STAT 7:16 AM [facility] POCT GLUCOSE DEVICE Routine 07/11/2025 6 :59 AM [facility] BRENDA ADD-ON FOR OR Routine 07/11/2025 6:3 9 AM [facility] PREPARE PLATELETS STAT 07/11/2025 5:4 9 AM [facility] PREPARE RBC STAT 07/11/2025 5:49 AM [facility] EGFR Routine 07/08/2025 10:03 AM [facility] Coronary artery disease of [place] heart with stable angina pectoris, unspecified vessel or lesion type HEMOGLOBIN A1C Routine 07/08/2025 10:03 AM [facility] Encounter for preadmission testing Type 2 diabetes mellitus with unspecified complications BASIC METABOLIC PANEL Routine 07/08/2025 10:03 AM [facility] Coronary artery disease of [place] heart with stable angina pectoris, unspecified vessel or lesion type PROTIME-INR Routine 07/08/2025 10:03 AM [facility] Coronary artery disease of [place] heart with stable angina pectoris, unspecified vessel or lesion type APTT Routine 07/08/2025 10:03 AM [facility] Coronary artery disease of [place] heart with stable angina pectoris, unspecified vessel or lesion type Shortness of breath CBC WITHOUT DIFFERENTIAL Routine 07/08/2025 10:03 AM [facility] Coronary artery disease of [place] heart with stable angina pectoris, unspecified vessel or lesion type TYPE AND SCREEN Routine 07/08/2025 10:03 AM [facility] Coronary artery disease of [place] heart with stable angina pectoris, unspecified vessel or lesion type URINALYSIS AND REFLEX TO MICROSCOPIC AND CULTURE Routine 07/08/2025 10:03 AM [facility] Coronary artery disease of [place] heart with stable angina pectoris, unspecified vessel or lesion type TROPONIN T HIGH-SENSITIVITY 2-HOUR Timed 06/28/2025 11:42 PM CDT D-DIMER, QUANTITATIVE STAT 06/28/2025 10:59 PM CDT XR CHEST 1 VIEW ED 06/28/2025 9:59 PM CDT APTT STAT 06/28/2025 9:58 PM CDT EGFR STAT 06/28/2025 9:57 PM CDT DIFFERENTIAL AUTO STAT 06/28/2025 9:5 7 PM CDT TROPONIN T HIGH-SENSITIVITY SERIES (BASELINE, 2HR, 4HR, 6HR) STAT 06/28/2025 9:57 PM CDT COMPREHENSIVE METABOLIC PANEL STAT 06/28/2025 9:57 PM CDT CBC WITH AUTO DIFFERENTIAL STAT 06/28/2025 9:57 PM CDT ECG 12-LEAD STAT 06/28/2025 9:53 PM CDT CORONARY OCT, 1ST VESSEL Routine 06/20/2025 1:35 PM CDT Coronary artery disease of [place] artery of [place] heart with stable angina pectoris Burning chest pain LEFT HEART CATHETERIZATION WITH CORONARY ANGIOGRAPHY AND WITH AND WITHOUT LEFT VENTRICULOGRAM Routine 06/20/2025 1:35 PM CDT Coronary artery disease of [place] artery of [place] heart with stable angina pectoris Burning chest pain MODERATE SEDATION FIRST 15MIN 5+ YEAR [id number] 06/20/2025 12:20 PM CDT Coronary artery disease of [place] artery of [place] heart with stable angina pectoris Burning chest pain EGFR Routine 06/20/2025 9:45 AM CDT DIFFERENTIAL AUTO Routine 06/20/2025 9:4 5 AM CDT BASIC METABOLIC PANEL Routine 06/20/2025 9:45 AM CDT CBC WITH AUTO DIFFERENTIAL Routine 06/20/2025 9:45 AM CDT POCT GLUCOSE DEVICE Routine 06/20/2025 9 :34 AM CDT TRANSTHORACIC ECHO (TTE) COMPLETE W DOPPLER/CF WO CONTRAST Routine 06/13/2025 9:12 AM CDT LBBB (left bundle branch block) NICM (nonischemic cardiomyopathy) ([facility]) ELECTROCARDIOGRAM REPORT Routine 06/04/2025 2:57 PM CDT Coronary artery disease of [place] artery of [place] heart with stable angina pectoris Essential hypertension LBBB (left bundle branch block) Tachycardia HOLTER MONITOR 48 HR Routine 06/04/2025 2:29 PM CDT Coronary artery disease of [place] artery of [place] heart with stable angina pectoris Tachycardia POCT LIPID PANEL Routine 11/27/2024 1:15 PM CDT Coronary artery disease of [place] artery of [place] heart with stable angina pectoris from Last 3 Months or Most Recently Relevant to Health Maintenance Results * ECG 12 lead (08/13/2025 11:32 AM [facility]) Prudence Davis CLIENT APPLICATION SUPPORT SPECIALIST ECG ORDERABLES Fi nal Result * eGFR (07/31/2025 11:49 AM [facility]) eGFR 68 >=60 mL/min/1. 73 m2 Comment: Interpretive Data Reference Interval Normal >/= 90 mL/min/1.73m2 Mildly decreased* 60 - 89 mL/min/1.73m2 Mildly to moderately decreased 45 - 59 mL/min/1.73m2 Moderately to severely decreased 30 - 44 mL/min/1.73m2 Severely decreased 15 - 29 mL/min/1.73m2 Kidney Failure < 15 mL/min/1.73m2 *Relative to young adult level Estimated glomerular filtration rate is determined by the 2020 CKD-EPI equation recommended by the National Kidney Foundation (A Unifying Approach to GFR Estimation: Recommendations of the NKF-ASK Task Force on Reassessing the Inclusion of Race in Diagnosing Kidney Disease, JASN 202). The CKD-EPI equation should not be used for patients with unstable renal function and has not been validated in children and those over 70. Current interpretive data was last reviewed 2021. Blood 07/31/2025 11:4 9 AM [facility] 07/31/2025 6:42 PM [facility] us Bobby Diaz MD LAB BLOOD ORDERABLES Final R esult AMI [id number] Department [place] [address] * (ABNORMAL) Differential, auto (07/31/2025 11:49 AM [facility]) Neutrophil abs 7.74(H) 1.50 - 6.50 K/cumm Imm gran abs 0.02 0.00 - 0.10 K/cumm [facility] Lymphocyte abs 1.82 0.80 - 3.30 K/cumm [facility] Monocyte abs 0.89(H) 0.20 - 0.80 K/cumm [facility] Eosinophil abs 0.24 0.00 - 0.50 K/cumm [facility] Basophil abs 0.02 0.00 - 0.10 K/cumm [facility] Neutrophil pct 72.1 % [facility] Comment: Interpretive Data Percent cell count reference ranges are not reported, since discordance with absolute values may lead to misinterpretation of CBC data. Current Interpretive Data was last revised on 2017. Imm gran pct 0.2 % [facility] Comment: Interpretive Data Percent cell count reference ranges are not reported, since discordance with absolute values may lead to misinterpretation of CBC data. Current Interpretive Data was last revised on 2017. Lymphocyte pct 17.0 % [facility] Comment: Interpretive Data Percent cell count reference ranges are not reported, since discordance with absolute values may lead to misinterpretation of CBC data. Current Interpretive Data was last revised on 2017. Monocyte pct 8.3 % [facility] Comment: Interpretive Data Percent cell count reference ranges are not reported, since discordance with absolute values may lead to misinterpretation of CBC data. Current Interpretive Data was last revised on 2017. Eosinophil pct 2.2 % [facility] Comment: Interpretive Data Percent cell count reference ranges are not reported, since discordance with absolute values may lead to misinterpretation of CBC data. Current Interpretive Data was last revised on 2017. Basophil pct 0.2 % [facility] Comment: Interpretive Data Percent cell count reference ranges are not reported, since discordance with absolute values may lead to misinterpretation of CBC data. Current Interpretive Data was last revised on 2017. Blood 07/31/2025 11:4 9 AM [facility] 07/31/2025 6:37 PM [facility] Bobby Diaz MD LAB BLOOD ORDERABLES Final R esult Performing Organization Address City/[facility]/ZIP Co de Phone Number AMI EVANS [address] [employer] [place], [place] [id number] * (ABNORMAL) CBC with auto differential (07/31/2025 11:49 AM [facility]) Pathologist [facility] WBC 10.73(H) 3.80 - 9.90 K/cumm Hgb 15.9 13.0 - 17.5 g/dL [facility] Hct 48.6 38.9 - 50.3 % [facility] Plt 505(H) 150 - 400 K/cumm [facility] MPV 10.8 9.1 - 12.3 fL [facility] RBC 5.36 4.30 - 5.80 M/cumm [facility] MCV 90.7 81.3 - 96.4 fL [facility] MCH 29.7 27.1 - 33.3 pg [facility] MCHC 32.7 32.3 - 35.7 g/dL [facility] CH RDW CV 13.3 11.1 - 14.9 % [facility] RDW SD 44.3 35.7 - 48.1 fL [facility] NRBC abs 0.00 0.00 - 0.01 K/cumm [facility] Blood 07/31/2025 11:4 9 AM [facility] 07/31/2025 6:37 PM [facility] Bobby Diaz MD LAB BLOOD ORDERABLES Final R esult Performing Organization Address City/[facility]/ZIP Co de Phone Number AMI EVANS [address] Department of [employer] [place], [place] [id number] * (ABNORMAL) Comprehensive metabolic panel (07/31/2025 11:49 AM [facility]) Sodium 139 135 - 145 mmol/L Potassium, pl 4.4 3.3 - 4.9 mmol/L [facility] Chloride 103 97 - 110 mmol/L [facility] CO2 18(L) 22 - 32 mmol/L [facility] Anion gap 18(H) 2 - 15 mmol/L [facility] BUN 17 6 - 25 mg/dL [facility] Creatinine 1.25 0.80 - 1.30 mg/dL [facility] Glucose 98 70 - 199 mg/dL [facility] Comment: Interpretive Data Fasting glucose >/= 126 mg/dl is diagnostic for diabetes. Fasting is defined as no caloric intake for at least 8 hours. Fasting glucose between 100 mg/dl to 125 mg/dl is diagnostic of prediabetes. In a patient with classic symptoms of hyperglycemia or hyperglycemic crisis, a random glucose >/= 200 mg/dl is diagnostic for diabetes. In the absence of unequivocal hyperglycemia, results should be confirmed by repeat testing. The classification and Diagnosis of Diabetes Diabetes Care 2021; 46: S19-S40. Current interpretive data was last revised 2022. Calcium 10.1 8.5 - 10.3 mg/dL [facility] Bilirubin, total 0.8 0.1 - 1.2 mg/dL [facility] Protein, pl 8.1 6.5 - 8.5 g/dL [facility] Albumin 4.3 3.5 - 5.0 g/dL [facility] Alk phos 191(H) 40 - 130 Units/L [facility] ALT 43 7 - 55 Units/L [facility] AST 53(H) 10 - 50 Units/L [facility] Blood 07/31/2025 11:4 9 AM [facility] 07/31/2025 6:37 PM [facility] us Bobby Diaz MD LAB BLOOD ORDERABLES Final R esult [facility] EV[facility] [address] Department [place] [address] * POCT glucose (07/16/2025 11:48 AM [facility]) Glucose, POC 112 70 - 199 mg/dL Blood 07/16/2025 11:4 8 AM [facility] [facility] 07/16/2025 11:48 AM [facility] [employer] us Bobby Diaz MD LAB POCT ORDERABLES - DEVICE Final Result AM[facility] EVANS [address] Department [place] [address] * XR Chest PA Lateral 2 Views (07/16/2025 8:23 AM [facility]) Anatomical Region Laterality Modality Body, Chest N/A Computed Radiogr aphy 07/16/2025 10:5 9 AM [facility] Impressions 07/16/2025 10:59 AM [facility] Right IJ central venous catheter terminates in the superior cavoatrial junction. No pneumothorax or pleural effusion. No consolidation. Spinal stimulator appropriately position. Poststernotomy changes. No acute osseous abnormality. Electronically signed by: Neptali Payne II, D.O. Narrative 07/16/2025 10:59 AM [facility] EXAMINATION: XR CHEST PA LATERAL 2 VIEWS DATE: 07/16/2025 8:20 AM INDICATION: Assess bilateral congestion. COMPARISON: July 15, 2025 Procedure Note Neptali Payne II, DO - 07/16/2025 EXAMINATION: XR CHEST PA LATERAL 2 VIEWS DATE: 07/16/2025 8:20 AM INDICATION: Assess bilateral congestion. COMPARISON: July 15, 2025 IMPRESSION: Right IJ central venous catheter terminates in the superior cavoatrial junction. No pneumothorax or pleural effusion. No consolidation. Spinal stimulator appropriately position. Poststernotomy changes. No acute osseous abnormality. Electronically signed by: Tiana Watkins IIOSosa us Ramiro Leigh CLIENT APPLICATION SUPPORT SPECIALIST IMG XR PROCEDURES Final Res ult * POCT glucose (07/16/2025 7:36 AM [facility]) Glucose, POC 103 70 - 199 mg/dL Blood 07/16/2025 7:36 AM [facility] 07/16/2025 7:36 AM [facility] [employer] us Bobby Diaz MD LAB POCT ORDERABLES - DEVICE Final Result Performing Organization Address [facility] Co de Phone Number AMI EVANS [address] [place] [address] * eGFR (07/16/2025 2:14 AM [facility] [employer]) eGFR >90 >=60 mL/min/1. 73 m2 Comment: Interpretive Data Reference Interval Normal >/= 90 mL/min/1.73m2 Mildly decreased* 60 - 89 mL/min/1.73m2 Mildly to moderately decreased 45 - 59 mL/min/1.73m2 Moderately to severely decreased 30 - 44 mL/min/1.73m2 Severely decreased 15 - 29 mL/min/1.73m2 Kidney Failure < 15 mL/min/1.73m2 *Relative to young adult level Estimated glomerular filtration rate is determined by the 2020 CKD-EPI equation recommended by the National Kidney Foundation (A Unifying Approach to GFR Estimation: Recommendations of the NKF-ASK Task Force on Reassessing the Inclusion of Race in Diagnosing Kidney Disease, JASN 2020). The CKD-EPI equation should not be used for patients with unstable renal function and has not been validated in children and those over 70. Current interpretive data was last reviewed 2021. Blood 07/16/2025 2:14 AM [facility] 07/16/2025 2:29 AM [facility] Bobby Diaz MD LAB BLOOD ORDERABLES Final R esult Performing Organization Address City/[facility]/ZIP Co de Phone Number AMI EVANS [address] [place] [address] * Basic metabolic panel (07/16/2025 2:14 AM [facility] [facility]) Sodium 139 135 - 145 mmol/L Potassium, pl 3.7 3.3 - 4.9 mmol/L [facility] Chloride 100 97 - 110 mmol/L [facility] CO2 25 22 - 32 mmol/L [facility] Anion gap 14 2 - 15 mmol/L [facility] BUN 20 6 - 25 mg/dL [facility] Creatinine 0.95 0.80 - 1.30 mg/dL [facility] Glucose 151 70 - 199 mg/dL [facility] Comment: Interpretive Data Fasting glucose >/= 126 mg/dl is diagnostic for diabetes. Fasting is defined as no caloric intake for at least 8 hours. Fasting glucose between 100 mg/dl to 125 mg/dl is diagnostic of prediabetes. In a patient with classic symptoms of hyperglycemia or hyperglycemic crisis, a random glucose >/= 200 mg/dl is diagnostic for diabetes. In the absence of unequivocal hyperglycemia, results should be confirmed by repeat testing. The classification and Diagnosis of Diabetes Diabetes Care 2021; 46: S19-S40. Current interpretive data was last revised 2022. Calcium 8.5 8.5 - 10.3 mg/dL [facility] Blood 07/16/2025 2:14 AM [facility] [facility] 07/16/2025 2:29 AM [facility] Bobby Diaz MD LAB BLOOD ORDERABLES Final R esult Performing Organization Address City/[facility] Co de Phone Number [facility] [address] [place] [address] * aPTT (07/16/2025 2:12 AM [facility]) aPTT 29 26 - 38 sec Comment: Interpretive Data Heparin therapeutic range: 66.0 - 100.0 seconds. Range based on correlation with therapeutic heparin activity range of 0.3 - 0.7 Units/mL. Blood 07/16/2025 2:12 AM [facility] 07/16/2025 2:28 AM [facility] Ramiro Leigh NP LAB BLOOD ORDERABLES Final Result Performing Organization Address [facility]/ZIP Co de Phone Number [facility] [phone] [place] [address] * Protime-INR (07/16/2025 2:12 AM [facility]) PT 12.0 10.2 - 13.5 sec INR 1.06 0.90 - 1.20 [facility] Comment: Interpretive data Oral anticoagulant therapeutic ranges: Venous thromboembolism prophylaxis or treatment: 2.0-3.0 CARDIOLOGY Standard range: 2.0-3.0 High-intensity range: 2.5-3.5 Refer to indication-specific guidelines for appropriate target ranges for prosthetic heart valve replacement. Current interpretive data was last revised on 2019. Blood 07/16/2025 2:12 AM [facility] [employer] 07/16/2025 2:28 AM [facility] [employer] us Ramiro Leigh NP LAB BLOOD ORDERABLES Final Result Performing Organization Address [facility] Co de Phone Number [facility] [address] [place] [address] * (ABNORMAL) CBC without differential (07/16/2025 2:12 AM [facility]) WBC 7.46 3.80 - 9.90 K/cumm Hgb 11.4(L) 13.0 - 17.5 g/dL [facility] Hct 33.6(L) 38.9 - 50.3 % [facility] Plt 134(L) 150 - 400 K/cumm [facility] MPV 10.9 9.1 - 12.3 fL [facility] RBC 3.72(L) 4.30 - 5.80 M/cumm [facility] MCV 90.3 81.3 - 96.4 fL [facility] MCH 30.6 27.1 - 33.3 pg [facility] MCHC 33.9 32.3 - 35.7 g/dL [facility] RDW CV 12.6 11.1 - 14.9 % [facility] RDW SD 41.1 35.7 - 48.1 fL [facility] NRBC abs 0.00 0.00 - 0.01 K/cumm [facility] Blood 07/16/2025 2:12 AM [facility] 07/16/2025 2:28 AM [facility] [employer] us Bobby Diaz MD LAB BLOOD ORDERABLES Final R esult Performing Organization Address City/[facility]/ZIP Co de Phone Number AMI [address] [place] [address] [phone] * POCT glucose (07/16/2025 2:08 AM [facility] [facility]) Glucose, POC 147 70 - 199 mg/dL Blood 07/16/2025 2:08 AM [facility] [facility] 07/16/2025 2:08 AM [facility] [facility] Bobby Diaz MD LAB POCT ORDERABLES - DEVICE Final Result Performing Organization Address City/[facility] Co de Phone Number AMI [address] [facility] [place] [address] * POCT glucose (07/15/2025 9:02 PM [facility] [employer]) Glucose, POC 133 70 - 199 mg/dL Blood 07/15/2025 9:02 PM [facility] [employer] [facility] 07/15/2025 9:02 PM [employer] [employer] Bobby Diaz MD LAB POCT ORDERABLES - DEVICE Final Result Performing Organization Address [facility] Co de Phone Number [facility] [address] [facility] [place] [address] * POCT glucose (07/15/2025 5:09 PM [facility] [employer]) Glucose, POC 120 70 - 199 mg/dL Blood 07/15/2025 5:09 PM [facility] [facility] 07/15/2025 5:09 PM [facility] [facility] Bobby Diaz MD LAB POCT ORDERABLES - DEVICE Final Result Performing Organization Address City/[facility] Co de Phone Number [facility] [address] [facility] [place] [address] * POCT glucose (07/15/2025 12:44 PM [facility] [employer]) Glucose, POC 106 70 - 199 mg/dL Blood 07/15/2025 12:4 4 PM [facility] 07/15/2025 12:44 PM [facility] [facility] Bobby Diaz MD LAB POCT ORDERABLES - DEVICE Final Result AMI EVANS [address] [place] [address] * POCT glucose (07/15/2025 7:33 AM [facility] [employer]) Glucose, POC 109 70 - 199 mg/dL Blood 07/15/2025 7:33 AM [facility] [facility] 07/15/2025 7:33 AM [facility] [facility] Bobby Diaz MD LAB POCT ORDERABLES - DEVICE Final Result Performing Organization Address [facility] Phone Number AMI EVANS [address] Department [place] [address] * XR Chest 1 View - in AM (07/15/2025 6:49 AM [facility] [employer]) Anatomical Region Laterality Modality Body, Chest N/A Computed Radiogr aphy 07/15/2025 11:1 2 AM [facility] Impressions 07/15/2025 11:12 AM [facility] No active disease. Electronically signed by: Saturnino Cassidy M.D. Narrative 07/15/2025 11:12 AM [facility] EXAMINATION: XR CHEST 1 VIEW DATE: 07/15/2025 5:15 HISTORY: s/p CABG FINDINGS: Sternal wires indicate prior cardiac surgery. Spinal stimulator electrode is noted in the thoracic spine. Right internal jugular central venous catheter ends in the superior vena cava. There is no pneumothorax or pleural effusion. Heart size and pulmonary vascularity are normal. Procedure Note Saturnino Cassidy MD - 07/15/2025 EXAMINATION: XR CHEST 1 VIEW DATE: 07/15/2025 5:15 HISTORY: s/p CABG FINDINGS: Sternal wires indicate prior cardiac surgery. Spinal stimulator electrode is noted in the thoracic spine. Right internal jugular central venous catheter ends in the superior vena cava. There is no pneumothorax or pleural effusion. Heart size and pulmonary vascularity are normal. IMPRESSION: No active disease. Electronically signed by: Saturnino Cassidy M.D. Bobby Diaz MD IMG XR PROCEDURES Final Resu lt * eGFR (07/15/2025 5:58 AM [facility] [facility]) eGFR >90 >=60 mL/min/1. 73 m2 Comment: Interpretive Data Reference Interval Normal >/= 90 mL/min/1.73m2 Mildly decreased* 60 - 89 mL/min/1.73m2 Mildly to moderately decreased 45 - 59 mL/min/1.73m2 Moderately to severely decreased 30 - 44 mL/min/1.73m2 Severely decreased 15 - 29 mL/min/1.73m2 Kidney Failure < 15 mL/min/1.73m2 *Relative to young adult level Estimated glomerular filtration rate is determined by the 2020 CKD-EPI equation recommended by the National Kidney Foundation (A Unifying Approach to GFR Estimation: Recommendations of the NKF-ASK Task Force on Reassessing the Inclusion of Race in Diagnosing Kidney Disease, JASN 2020). The CKD-EPI equation should not be used for patients with unstable renal function and has not been validated in children and those over 70. Current interpretive data was last reviewed 2021. Blood 07/15/2025 5:58 AM [facility] 07/15/2025 5:58 AM [facility] [employer] Bobby Diaz MD LAB BLOOD ORDERABLES Final R esult [facility] [address] Department [place] [address] * (ABNORMAL) CBC without differential (07/15/2025 5:58 AM [facility] [employer]) WBC 7.52 3.80 - 9.90 K/cumm Hgb 11.8(L) 13.0 - 17.5 g/dL [facility] Hct 35.0(L) 38.9 - 50.3 % [facility] Plt 117(L) 150 - 400 K/cumm [facility] MPV 11.1 9.1 - 12.3 fL [facility] RBC 3.83(L) 4.30 - 5.80 M/cumm [facility] MCV 91.4 81.3 - 96.4 fL [facility] MCH 30.8 27.1 - 33.3 pg [facility] MCHC 33.7 32.3 - 35.7 g/dL [facility] RDW CV 12.5 11.1 - 14.9 % [facility] RDW SD 41.2 35.7 - 48.1 fL [facility] NRBC abs 0.00 0.00 - 0.01 K/cumm [facility] Blood 07/15/2025 5:58 AM [facility] [employer] 07/15/2025 5:58 AM [facility] [employer] Bobby Diaz MD LAB BLOOD ORDERABLES Final R esult Performing Organization Address [facility] Co de Phone Number [facility] [address] [employer] [place], [place] [id number] * Magnesium (07/15/2025 5:58 AM [facility] [employer]) [facility] Magnesium 2.0 1.4 - 2.5 mg/dL Blood 07/15/2025 5:58 AM [facility] [employer] 07/15/2025 5:58 AM [facility] [employer] Bobby Diaz MD LAB BLOOD ORDERABLES Final R esult Performing Organization Address City/[facility] Co de Phone Number [facility] [address] [place] [address] * Basic metabolic panel (07/15/2025 5:58 AM [facility] [employer]) Sodium 141 135 - 145 mmol/L Potassium, pl 4.0 3.3 - 4.9 mmol/L [facility] Chloride 103 97 - 110 mmol/L [facility] CO2 26 22 - 32 mmol/L [facility] Anion gap 12 2 - 15 mmol/L [facility] BUN 20 6 - 25 mg/dL [facility] Creatinine 0.99 0.80 - 1.30 mg/dL [facility] Glucose 105 70 - 199 mg/dL [facility] Comment: Interpretive Data Fasting glucose >/= 126 mg/dl is diagnostic for diabetes. Fasting is defined as no caloric intake for at least 8 hours. Fasting glucose between 100 mg/dl to 125 mg/dl is diagnostic of prediabetes. In a patient with classic symptoms of hyperglycemia or hyperglycemic crisis, a random glucose >/= 200 mg/dl is diagnostic for diabetes. In the absence of unequivocal hyperglycemia, results should be confirmed by repeat testing. The classification and Diagnosis of Diabetes Diabetes Care 2021; 46: S19-S40. Current interpretive data was last revised 2022. Calcium 8.8 8.5 - 10.3 mg/dL [facility] Blood 07/15/2025 5:58 AM [facility] [employer] 07/15/2025 5:58 AM [employer] [employer] Bobby Diaz MD LAB BLOOD ORDERABLES Final R esult Performing Organization Address [facility] Co de Phone Number [facility] [address] [place] [address] * POCT glucose (07/15/2025 2:52 AM [facility] [employer]) Glucose, POC 96 70 - 199 mg/dL Blood 07/15/2025 2:52 AM [facility] [employer] 07/15/2025 2:52 AM [facility] [employer] Result [facility] Bobby Diaz MD LAB POCT ORDERABLES - DEVICE Final Result Performing Organization Address [facility] Co de Phone Number [facility] [address] [place] [address] * POCT glucose (07/14/2025 8:24 PM [facility] [employer]) Glucose, POC 147 70 - 199 mg/dL Blood 07/14/2025 8:24 PM [facility] [employer] 07/14/2025 8:24 PM [facility] [employer] Result [facility] Bobby Diaz MD LAB POCT ORDERABLES - DEVICE Final Result Performing Organization Address [facility] Co de Phone Number [facility] [address] [employer] [place], [place] [id number] * Calcium, ionized, whole blood (07/14/2025 1:24 PM [facility] [employer]) Ca, ionized, bld 4.72 4.50 - 5.10 mg/dL Blood 07/14/2025 1:24 PM [facility] [employer] 07/14/2025 1:43 PM [facility] [employer] Юлия Ruiz NP LAB BLOOD ORDERABLES F inal Result Performing Organization Address [facility] Co de Phone Number [facility] [address] [facility] [place] [address] * eGFR (07/14/2025 1:24 PM [facility]) Pathologist [facility] eGFR >90 >=60 mL/min/1. 73 m2 Comment: Interpretive Data Reference Interval Normal >/= 90 mL/min/1.73m2 Mildly decreased* 60 - 89 mL/min/1.73m2 Mildly to moderately decreased 45 - 59 mL/min/1.73m2 Moderately to severely decreased 30 - 44 mL/min/1.73m2 Severely decreased 15 - 29 mL/min/1.73m2 Kidney Failure < 15 mL/min/1.73m2 *Relative to young adult level Estimated glomerular filtration rate is determined by the 2020 CKD-EPI equation recommended by the National Kidney Foundation (A Unifying Approach to GFR Estimation: Recommendations of the NKF-ASK Task Force on Reassessing the Inclusion of Race in Diagnosing Kidney Disease, JASN 2020). The CKD-EPI equation should not be used for patients with unstable renal function and has not been validated in children and those over 70. Current interpretive data was last reviewed 2021. Blood 07/14/2025 1:24 PM [facility] [employer] 07/14/2025 2:01 PM [facility] [employer] Юлия Ruiz NP LAB BLOOD ORDERABLES F inal Result Performing Organization Address City/[facility]/ZIP Co de Phone Number [facility] [address] [facility] [place] [address] * (ABNORMAL) CBC without differential (07/14/2025 1:24 PM [facility]) Pathologist [facility] WBC 7.93 3.80 - 9.90 K/cumm Hgb 11.2(L) 13.0 - 17.5 g/dL [facility] Hct 32.5(L) 38.9 - 50.3 % [facility] Plt 96(L) 150 - 400 K/cumm [facility] MPV 10.7 9.1 - 12.3 fL [facility] RBC 3.66(L) 4.30 - 5.80 M/cumm [facility] MCV 88.8 81.3 - 96.4 fL [facility] MCH 30.6 27.1 - 33.3 pg [facility] MCHC 34.5 32.3 - 35.7 g/dL [facility] RDW CV 12.4 11.1 - 14.9 % [facility] RDW SD 40.7 35.7 - 48.1 fL [facility] NRBC abs 0.00 0.00 - 0.01 K/cumm [facility] Blood 07/14/2025 1:24 PM [facility] 07/14/2025 1:49 PM [employer] Bobby Diaz MD LAB BLOOD ORDERABLES Final R esult Performing Organization Address City/[facility]/ZIP Co de Phone Number [facility]I [address] [place] [address] * Magnesium (07/14/2025 1:24 PM [facility] [employer]) [facility] Magnesium 2.0 1.4 - 2.5 mg/dL Blood 07/14/2025 1:24 PM [facility] [employer] 07/14/2025 2:01 PM [facility] [employer] Юлия Ruiz CLIENT APPLICATION SUPPORT SPECIALIST LAB BLOOD ORDERABLES F inal Result Performing Organization Address City/[facility]/ZIP Co de Phone Number [facility] [address] [place] [address] * Renal function panel (07/14/2025 1:24 PM [facility] [employer]) Sodium 137 135 - 145 mmol/L Potassium, pl 3.6 3.3 - 4.9 mmol/L [facility] Chloride 102 97 - 110 mmol/L [facility] CO2 23 22 - 32 mmol/L [facility] Anion gap 12 2 - 15 mmol/L [facility] BUN 23 6 - 25 mg/dL [facility] Creatinine 0.99 0.80 - 1.30 mg/dL [facility] Glucose 150 70 - 199 mg/dL [facility] Comment: Interpretive Data Fasting glucose >/= 126 mg/dl is diagnostic for diabetes. Fasting is defined as no caloric intake for at least 8 hours. Fasting glucose between 100 mg/dl to 125 mg/dl is diagnostic of prediabetes. In a patient with classic symptoms of hyperglycemia or hyperglycemic crisis, a random glucose >/= 200 mg/dl is diagnostic for diabetes. In the absence of unequivocal hyperglycemia, results should be confirmed by repeat testing. The classification and Diagnosis of Diabetes Diabetes Care 2021; 46: S19-S40. Current interpretive data was last revised 2022. Calcium 8.9 8.5 - 10.3 mg/dL [facility] Phosphorus, pl 3.6 2.3 - 4.5 mg/dL [facility] Albumin 3.7 3.5 - 5.0 g/dL [facility] Blood 07/14/2025 1:24 PM [facility] [employer] 07/14/2025 2:01 PM [facility] [employer] Юлия Ruiz NP LAB BLOOD ORDERABLES F inal Result Performing Organization Address City/State/[facility] Co de Phone Number [facility] [address] Department [place] [address] * POCT glucose (07/14/2025 12:04 PM [employer]) Glucose, POC 120 70 - 199 mg/dL Blood 07/14/2025 12:0 4 PM [employer] 07/14/2025 12:04 PM [facility] [employer] Bobby Diaz MD LAB POCT ORDERABLES - DEVICE Final Result Performing Organization Address City/State/[facility] [place] [address] [address] [place] [address] * POCT glucose (07/14/2025 7:26 AM [employer]) Glucose, POC 88 70 - 199 mg/dL Blood 07/14/2025 7:26 AM [employer] 07/14/2025 7:26 AM [employer] us Bobby Diaz MD LAB POCT ORDERABLES - DEVICE Final Result Performing Organization Address [facility] [place] [address] [address] [place] [address] * Critical Care (07/14/2025 6:49 AM [facility] [employer]) Narrative Antonio Radford MD - 07/14/2025 6:49 AM [employer] Antonio Radford MD 07/15/2025 8:18 AM Critical Care Performed by: Юлия Ruiz NP Authorized by: Юлия Ruiz NP CRITICAL CARE: Team: ANUJ Shift: AM Level of Billing: Subsequent Hospital Visit Level 3 My time spent with this patient was 60 minutes: Critical Provider Statement: I have seen and examined the patient on this day of service. I have reviewed and confirmed the history, physical exam, laboratory, and radiographic data as documented in the ICU note. I have reviewed and discussed my treatment plan with the patient's team and other medical/industrial rehabilitation consultant staff. This time was in addition to and separate from care provided by other practitioners on this day of service. I spent time talking to this patient's surrogate decision maker to determine treatment plans due to patient's inability to participate in decision making, I spent time talking to this patient's relatives to obtain additional medical history due to patient's inabililty to provide history, I spent time documenting in the medical record, I spent time discussing the management of this critically ill patient with consultants and the medical staff and I spent time reviewing and interpreting data from bedside monitors, laboratory results, and imaging us Юлия Ruiz CLIENT APPLICATION SUPPORT SPECIALIST IN CLINIC/BEDSIDE ORDE CHANNING Final Result * XR Chest 1 View - in AM (07/14/2025 6:23 AM [facility] [employer]) Anatomical Region Laterality Modality Body, Chest N/A Computed Radiogr aphy 07/14/2025 9:03 AM [facility] [employer] Impressions 07/14/2025 9:03 AM [facility] [employer] Postop change with bilateral lower lobe subsegmental atelectasis. Electronically signed by: Keri Wade M.D. Narrative 07/14/2025 9:03 AM [facility] [employer] Examination: XR CHEST 1 VIEW Date: 07/14/2025 5:50 AM History: s/p CABG Comparison: 07/13/2025. Findings: Normal heart size, sternotomy, temporal leads, and right IJ pulmonary artery catheter in the pulmonary outflow tract noted. The external drain and thoracostomy tube have been removed. Bilateral perihilar lower lobe subsegmental atelectasis is seen. There is no pneumothorax. Procedure Note Keri Wade MD - 07/14/2025 Examination: XR CHEST 1 VIEW Date: 07/14/2025 5:50 AM History: s/p CABG Comparison: 07/13/2025. Findings: Normal heart size, sternotomy, temporal leads, and right IJ pulmonary artery catheter in the pulmonary outflow tract noted. The external drain and thoracostomy tube have been removed. Bilateral perihilar lower lobe subsegmental atelectasis is seen. There is no pneumothorax. IMPRESSION: Postop change with bilateral lower lobe subsegmental atelectasis. Electronically signed by: Keri Wade M.D. Bobby Diaz MD IMG XR PROCEDURES Final Resu lt * Potassium, whole blood (07/14/2025 6:05 AM [facility] [employer]) Potassium, bld 4.3 3.3 - 4.9 mmol/L Comment: Interpretive Data This method is not able to assess for hemolysis, which may falsely increase potassium concentrations. If further testing is needed to evaluate this result, consider in-laboratory plasma potassium. Current Interpretive Data was last revised on 2022. Blood 07/14/2025 6:05 AM [facility] [employer] 07/14/2025 6:10 AM [facility] [employer] us Bobby Diaz MD LAB BLOOD ORDERABLES Final R esult Performing Organization Address [facility] de Phone Number AMI [address] [facility] [place] [address] * Oxyhemoglobin, central venous (07/14/2025 4:54 AM [employer]) Pathologist [facility] Oxyhemoglobin, CV 69.1 % Comment: Interpretive Data No reference range established. Current interpretive data was last revised 2019. Blood 07/14/2025 4:54 AM [employer] 07/14/2025 5:01 AM [employer] us Bobby Diaz MD LAB BLOOD ORDERABLES Final R esult Performing Organization Address [facility] de Phone Number AMI [address] [facility] [place] [address] * POCT glucose (07/14/2025 4:46 AM [employer]) [facility] Glucose, POC 96 70 - 199 mg/dL Blood 07/14/2025 4:46 AM [employer] 07/14/2025 4:46 AM [employer] Result [facility] us Bobby Diaz MD LAB POCT ORDERABLES - DEVICE Final Result Performing Organization Address [facility] de Phone Number AMI [address] [facility] [place] [address] * eGFR (07/14/2025 4:38 AM [employer]) Pathologist [facility] eGFR 87 >=60 mL/min/1. 73 m2 Comment: Interpretive Data Reference Interval Normal >/= 90 mL/min/1.73m2 Mildly decreased* 60 - 89 mL/min/1.73m2 Mildly to moderately decreased 45 - 59 mL/min/1.73m2 Moderately to severely decreased 30 - 44 mL/min/1.73m2 Severely decreased 15 - 29 mL/min/1.73m2 Kidney Failure < 15 mL/min/1.73m2 *Relative to young adult level Estimated glomerular filtration rate is determined by the 2020 CKD-EPI equation recommended by the National Kidney Foundation (A Unifying Approach to GFR Estimation: Recommendations of the NKF-ASK Task Force on Reassessing the Inclusion of Race in Diagnosing Kidney Disease, JASN 202). The CKD-EPI equation should not be used for patients with unstable renal function and has not been validated in children and those over 70. Current interpretive data was last reviewed 2021. Blood 07/14/2025 4:38 AM [employer] [employer] 07/14/2025 5:01 AM [employer] us Bobby Diaz MD LAB BLOOD ORDERABLES Final R esult [facility] [address] Department [place] [address] * (ABNORMAL) CBC without differential (07/14/2025 4:38 AM [employer]) WBC 7.68 3.80 - 9.90 K/cumm Hgb 9.9(L) 13.0 - 17.5 g/dL [facility] Hct 29.9(L) 38.9 - 50.3 % [facility] Plt 80(L) 150 - 400 K/cumm [facility] Comment:No clot detected in sample. MPV 11.2 9.1 - 12.3 fL [facility] RBC 3.26(L) 4.30 - 5.80 M/cumm [facility] MCV 91.7 81.3 - 96.4 fL [facility] MCH 30.4 27.1 - 33.3 pg [facility] MCHC 33.1 32.3 - 35.7 g/dL [facility] RDW CV 12.5 11.1 - 14.9 % [facility] RDW SD 41.7 35.7 - 48.1 fL [facility] NRBC abs 0.00 0.00 - 0.01 K/cumm [facility] Blood 07/14/2025 4:38 AM [employer] 07/14/2025 5:02 AM [employer] Bobby Diaz MD LAB BLOOD ORDERABLES Final R esult Performing Organization Address City/[facility]/ZIP Co de Phone Number [facility] [address] [place] [address] * Magnesium (07/14/2025 4:38 AM [employer]) Magnesium 2.0 1.4 - 2.5 mg/dL Blood 07/14/2025 4:38 AM [employer] 07/14/2025 5:01 AM [employer] Bobby Diaz MD LAB BLOOD ORDERABLES Final R [facility] Performing Organization Address [facility] de Phone Number [facility] [address] Department [place] [address] * (ABNORMAL) Basic metabolic panel (07/14/2025 4:38 AM [employer]) Sodium 138 135 - 145 mmol/L Potassium, pl 9.8(C) 3.3 - 4.9 mmol/L [facility] Comment:Critical Result call ed to and read back by Aline Ng, DATE: 2025-07-14 05:59:01 BY: Daniel Saez Chloride 109 97 - 110 mmol/L [facility] CO2 23 22 - 32 mmol/L [facility] Anion gap 6 2 - 15 mmol/L [facility] BUN 22 6 - 25 mg/dL [facility] Creatinine 1.02 0.80 - 1.30 mg/dL [facility] Glucose 97 70 - 199 mg/dL [facility] Comment: Interpretive Data Fasting glucose >/= 126 mg/dl is diagnostic for diabetes. Fasting is defined as no caloric intake for at least 8 hours. Fasting glucose between 100 mg/dl to 125 mg/dl is diagnostic of prediabetes. In a patient with classic symptoms of hyperglycemia or hyperglycemic crisis, a random glucose >/= 200 mg/dl is diagnostic for diabetes. In the absence of unequivocal hyperglycemia, results should be confirmed by repeat testing. The classification and Diagnosis of Diabetes Diabetes Care 2021; 46: S19-S40. Current interpretive data was last revised 2022. Calcium 8.7 8.5 - 10.3 mg/dL [facility] Blood 07/14/2025 4:38 AM [employer] [employer] 07/14/2025 5:01 AM [employer] [employer] Bobby Diaz MD LAB BLOOD ORDERABLES Final R esult AMI [address] [place] [address] * (ABNORMAL) Calcium, ionized, whole blood (07/13/2025 10:18 PM [employer]) Ca, ionized, bld 4.25(L) 4.50 - 5.10 mg/dL Blood 07/13/2025 10:1 8 PM [employer] 07/13/2025 10:22 PM [employer] Bobby Diaz MD LAB BLOOD ORDERABLES Final R esult Performing Organization Address City/[facility] Co de Phone Number [facility] [address] [place] [address] * eGFR (07/13/2025 10:18 PM [employer]) eGFR 76 >=60 mL/min/1. 73 m2 Comment: Interpretive Data Reference Interval Normal >/= 90 mL/min/1.73m2 Mildly decreased* 60 - 89 mL/min/1.73m2 Mildly to moderately decreased 45 - 59 mL/min/1.73m2 Moderately to severely decreased 30 - 44 mL/min/1.73m2 Severely decreased 15 - 29 mL/min/1.73m2 Kidney Failure < 15 mL/min/1.73m2 *Relative to young adult level Estimated glomerular filtration rate is determined by the 2020 CKD-EPI equation recommended by the National Kidney Foundation (A Unifying Approach to GFR Estimation: Recommendations of the NKF-ASK Task Force on Reassessing the Inclusion of Race in Diagnosing Kidney Disease, JASN 2020). The CKD-EPI equation should not be used for patients with unstable renal function and has not been validated in children and those over 70. Current interpretive data was last reviewed 2021. Blood 07/13/2025 10:1 8 PM [employer] [employer] 07/13/2025 10:27 PM [employer] [employer] Bobby Diaz MD LAB BLOOD ORDERABLES Final R esult Performing Organization Address City/[facility] Co de Phone Number [facility] [address] [place] [address] * Magnesium (07/13/2025 10:18 PM [employer]) Pathologist [facility] Magnesium 1.9 1.4 - 2.5 mg/dL Blood 07/13/2025 10:1 8 PM [employer] 07/13/2025 10:22 PM [employer] Bobby Diaz MD LAB BLOOD ORDERABLES Final R esult Performing Organization Address City/[facility] Co de Phone Number [facility] [address] [place] [address] * (ABNORMAL) Basic metabolic panel (07/13/2025 10:18 PM [employer]) Sodium 141 135 - 145 mmol/L Potassium, pl 3.8 3.3 - 4.9 mmol/L [facility] Chloride 106 97 - 110 mmol/L [facility] CO2 23 22 - 32 mmol/L [facility] Anion gap 12 2 - 15 mmol/L [facility] BUN 25 6 - 25 mg/dL [facility] Creatinine 1.15 0.80 - 1.30 mg/dL [facility] Glucose 115 70 - 199 mg/dL [facility] Comment: Interpretive Data Fasting glucose >/= 126 mg/dl is diagnostic for diabetes. Fasting is defined as no caloric intake for at least 8 hours. Fasting glucose between 100 mg/dl to 125 mg/dl is diagnostic of prediabetes. In a patient with classic symptoms of hyperglycemia or hyperglycemic crisis, a random glucose >/= 200 mg/dl is diagnostic for diabetes. In the absence of unequivocal hyperglycemia, results should be confirmed by repeat testing. The classification and Diagnosis of Diabetes Diabetes Care 2021; 46: S19-S40. Current interpretive data was last revised 2022. Calcium 7.7(L) 8.5 - 10.3 mg/dL [facility] Blood 07/13/2025 10:1 8 PM [facility] [employer] 07/13/2025 10:22 PM [employer] [employer] Bobby Diaz MD LAB BLOOD ORDERABLES Final R esult AMI [address] [place] [address] * POCT glucose (07/13/2025 7:50 PM [employer]) Glucose, POC 158 70 - 199 mg/dL Blood 07/13/2025 7:50 PM [employer] [employer] 07/13/2025 7:50 PM [employer] [employer] Bobby Diaz MD LAB POCT ORDERABLES - DEVICE Final Result Performing Organization Address [facility] Co de Phone Number [facility] [address] [place] [address] * POCT glucose (07/13/2025 5:10 PM [employer]) Glucose, POC 88 70 - 199 mg/dL Blood 07/13/2025 5:10 PM [facility] [employer] 07/13/2025 5:10 PM [facility] Bobby Diaz MD LAB POCT ORDERABLES - DEVICE Final Result Performing Organization Address City/[facility] Co de Phone Number [facility] [address] [facility] [place] [address] * Calcium, ionized, whole blood (07/13/2025 2:46 PM [employer]) Ca, ionized, bld 4.64 4.50 - 5.10 mg/dL Blood 07/13/2025 2:46 PM [facility] [employer] 07/13/2025 2:57 PM [facility] [facility] Юлия Ruiz CLIENT APPLICATION SUPPORT SPECIALIST LAB BLOOD ORDERABLES F inal Result Performing Organization Address [facility] de Phone Number [facility] [address] Department of [employer] [place], [place] [address] * eGFR (07/13/2025 2:46 PM [employer]) Pathologist [facility] eGFR 71 >=60 mL/min/1. 73 m2 Comment: Interpretive Data Reference Interval Normal >/= 90 mL/min/1.73m2 Mildly decreased* 60 - 89 mL/min/1.73m2 Mildly to moderately decreased 45 - 59 mL/min/1.73m2 Moderately to severely decreased 30 - 44 mL/min/1.73m2 Severely decreased 15 - 29 mL/min/1.73m2 Kidney Failure < 15 mL/min/1.73m2 *Relative to young adult level Estimated glomerular filtration rate is determined by the 2020 CKD-EPI equation recommended by the National Kidney Foundation (A Unifying Approach to GFR Estimation: Recommendations of the NKF-ASK Task Force on Reassessing the Inclusion of Race in Diagnosing Kidney Disease, JASN 2020). The CKD-EPI equation should not be used for patients with unstable renal function and has not been validated in children and those over 70. Current interpretive data was last reviewed 2021. Blood 07/13/2025 2:46 PM [facility] [employer] 07/13/2025 2:59 PM [facility] [employer] Юлия Ruiz CLIENT APPLICATION SUPPORT SPECIALIST LAB BLOOD ORDERABLES F inal Result Performing Organization Address [facility] Co de Phone Number AMI EVANS [address] [place] [address] * (ABNORMAL) CBC without differential (07/13/2025 2:46 PM [facility] [employer]) Pathologist [facility] WBC 8.48 3.80 - 9.90 K/cumm Hgb 10.2(L) 13.0 - 17.5 g/dL [facility] Hct 30.3(L) 38.9 - 50.3 % [facility] Plt 80(L) 150 - 400 K/cumm [facility] MPV 10.7 9.1 - 12.3 fL [facility] RBC 3.37(L) 4.30 - 5.80 M/cumm [facility] MCV 89.9 81.3 - 96.4 fL [facility] MCH 30.3 27.1 - 33.3 pg [facility] MCHC 33.7 32.3 - 35.7 g/dL [facility] RDW CV 12.7 11.1 - 14.9 % [facility] RDW SD 41.5 35.7 - 48.1 fL [facility] NRBC abs 0.00 0.00 - 0.01 K/cumm [facility] Blood 07/13/2025 2:46 PM [facility] [employer] 07/13/2025 2:59 PM [employer] [employer] Bobby Diaz MD LAB BLOOD ORDERABLES Final R esult Performing Organization Address [facility] Co de Phone Number [facility] [address] Department Vascular [facility] [place], [place] [id number] * Magnesium (07/13/2025 2:46 PM [facility] [employer]) [facility] Magnesium 2.1 1.4 - 2.5 mg/dL Blood 07/13/2025 2:46 PM [facility] [employer] 07/13/2025 2:59 PM [employer] [employer] Юлия Ruiz NP LAB BLOOD ORDERABLES F inal Result Performing Organization Address [facility] de Phone Number [facility] [address] Department of [employer] [place], [place] [id number] * (ABNORMAL) Renal function panel (07/13/2025 2:46 PM [facility] [employer]) Pathologist [facility] Sodium 139 135 - 145 mmol/L Potassium, pl 4.1 3.3 - 4.9 mmol/L [facility] Chlor[facility] 105 97 - 110 mmol/L [facility] CH CO2 22 22 - 32 mmol/L [facility] CH Anion gap 12 2 - 15 mmol/L [facility] BUN 26(H) 6 - 25 mg/dL [facility] Creatinine 1.21 0.80 - 1.30 mg/dL [facility] Glucose 113 70 - 199 mg/dL [facility] Comment: Interpretive Data Fasting glucose >/= 126 mg/dl is diagnostic for diabetes. Fasting is defined as no caloric intake for at least 8 hours. Fasting glucose between 100 mg/dl to 125 mg/dl is diagnostic of prediabetes. In a patient with classic symptoms of hyperglycemia or hyperglycemic crisis, a random glucose >/= 200 mg/dl is diagnostic for diabetes. In the absence of unequivocal hyperglycemia, results should be confirmed by repeat testing. The classification and Diagnosis of Diabetes Diabetes Care 2021; 46: S19-S40. Current interpretive data was last revised 2022. Calcium 8.1(L) 8.5 - 10.3 mg/dL [facility] Phosphorus, pl 3.3 2.3 - 4.5 mg/dL [facility] Albumin 3.5 3.5 - 5.0 g/dL [facility] Blood 07/13/2025 2:46 PM [facility] [employer] 07/13/2025 2:59 PM [facility] [employer] Юлия Ruiz NP LAB BLOOD ORDERABLES F inal Result Performing Organization Address City/[facility]/ZIP Co de Phone Number AMI EVANS [address] [place] [address] * POCT glucose (07/13/2025 12:11 PM [facility] [employer]) Glucose, POC 147 70 - 199 mg/dL Blood 07/13/2025 12:1 1 PM [employer] 07/13/2025 12:11 PM [employer] [employer] Bobby Diaz MD LAB POCT ORDERABLES - DEVICE Final Result Performing Organization Address [facility]/ZIP Co de Phone Number AMI EVANS [address] [place] [address] * POCT glucose (07/13/2025 8:02 AM [facility] [employer]) Glucose, POC 135 70 - 199 mg/dL Blood 07/13/2025 8:02 AM [facility] [employer] 07/13/2025 8:02 AM [employer] us Bobby Diaz MD LAB POCT ORDERAB[place] - [place] [address] [address] Department of Laboratories [place] [id number] * Critical Care (07/13/2025 7:00 AM [employer]) Narrative Antonio Radford MD - 07/13/2025 7:00 AM [employer] Antonio Radford MD 07/14/2025 7:57 AM Critical Care Performed by: Юлия Ruiz NP Authorized by: Юлия Ruiz NP CRITICAL CARE: Team: ANUJ Shift: AM Level of Billing: Critical Care My time spent with this patient was 60 minutes: Critical Provider Statement: I have seen and examined the patient on this day of service. I have reviewed and confirmed the history, physical exam, laboratory and radiologic data as documented in the signed ICU note. I have reviewed and discussed my treatment plan with the ICU team and other medical/industrial rehabilitation consultant staff, making frequent assessments and decisions regarding this patient's complex medical care. Critical Care time was exclusive of time spent performing separately billed procedures, treating other patients, and teaching. This time was in addition to and separate from critical care provided by other practitioners in my group on this day of service. Critical Care was necessary to treat or prevent imminent or life-threatening deterioration of the following conditions: I spent time talking to this patient's surrogate decision maker to determine treatment plans due to patient's inability to participate in decision making, I spent time talking to this patient's relatives to obtain additional medical history due to patient's inabililty to provide history, I spent time documenting in the medical record, I spent time discussing the management of this critically ill patient with consultants and the medical staff and I spent time reviewing and interpreting data from bedside monitors, laboratory results, and imaging us Юлия Ruiz NP IN CLINIC/BEDSIDE ORDE RABYEN Final Result * XR Chest 1 View - in AM (07/13/2025 6:08 AM [facility] [employer]) Anatomical Region Laterality Modality Body, Chest N/A Computed Radiogr aphy 07/13/2025 8:18 AM [facility] [employer] Impressions 07/13/2025 8:18 AM [employer] Postoperative change with lower lobe subsegmental atelectasis again seen. Electronically signed by: Keri Wade M.D. Narrative 07/13/2025 8:18 AM [facility] [employer] Examination: XR CHEST 1 VIEW Date: 07/13/2025 4:25 AM History: s/p CABG Comparison: 07/12/2025. Findings: Normal heart size, sternotomy, mediastinal drain, and left thoracostomy tube again seen. Right IJ pulmonary artery catheter is seen in the pulmonary outflow tract. Lower lobe subsegmental atelectasis is seen. There is no pneumothorax. Spinal stimulator electrodes project over the lower thoracic spine. Procedure Note Keri Wade MD - 07/13/2025 Examination: XR CHEST 1 VIEW Date: 07/13/2025 4:25 AM History: s/p CABG Comparison: 07/12/2025. Findings: Normal heart size, sternotomy, mediastinal drain, and left thoracostomy tube again seen. Right IJ pulmonary artery catheter is seen in the pulmonary outflow tract. Lower lobe subsegmental atelectasis is seen. There is no pneumothorax. Spinal stimulator electrodes project over the lower thoracic spine. IMPRESSION: Postoperative change with lower lobe subsegmental atelectasis again seen. Electronically signed by: Keri Wade M.D. Bobby Diaz MD IMG XR PROCEDURES Final Resu lt * POCT glucose (07/13/2025 2:24 AM [employer] [employer]) Glucose, POC 116 70 - 199 mg/dL Blood 07/13/2025 2:24 AM [employer] 07/13/2025 2:24 AM [employer] us Bobby Diaz MD LAB POCT ORDERABLES - DEVICE Final Result AMI [address] Department [place] [address] * Oxyhemoglobin, central venous (07/13/2025 2:09 AM [employer]) Oxyhemoglobin, CV 67.5 % Comment: Interpretive Data No reference range established. Current interpretive data was last revised 2019. Blood 07/13/2025 2:09 AM [facility] 07/13/2025 2:28 AM [employer] Bobby Diaz MD LAB BLOOD ORDERABLES Final R esult AMI [address] [place] [address] * Calcium, ionized, whole blood (07/13/2025 2:09 AM [facility]) Pathologist [facility] Ca, ionized, bld 4.88 4.50 - 5.10 mg/dL Blood 07/13/2025 2:09 AM [employer] 07/13/2025 2:29 AM [employer] Bobby Diaz MD LAB BLOOD ORDERABLES Final R esult AMI [address] [facility] [place] [address] * eGFR (07/13/2025 2:09 AM [employer]) eGFR 73 >=60 mL/min/1. 73 m2 Comment: Interpretive Data Reference Interval Normal >/= 90 mL/min/1.73m2 Mildly decreased* 60 - 89 mL/min/1.73m2 Mildly to moderately decreased 45 - 59 mL/min/1.73m2 Moderately to severely decreased 30 - 44 mL/min/1.73m2 Severely decreased 15 - 29 mL/min/1.73m2 Kidney Failure < 15 mL/min/1.73m2 *Relative to young adult level Estimated glomerular filtration rate is determined by the 2020 CKD-EPI equation recommended by the National Kidney Foundation (A Unifying Approach to GFR Estimation: Recommendations of the NKF-ASK Task Force on Reassessing the Inclusion of Race in Diagnosing Kidney Disease, JASN 202). The CKD-EPI equation should not be used for patients with unstable renal function and has not been validated in children and those over 70. Current interpretive data was last reviewed 2021. Blood 07/13/2025 2:09 AM [employer] 07/13/2025 2:38 AM [employer] Bobby Diaz MD LAB BLOOD ORDERABLES Final R esult AMI EVANS [address] [place] [address] * (ABNORMAL) CBC without differential (07/13/2025 2:09 AM [facility]) WBC 9.78 3.80 - 9.90 K/cumm Hgb 10.1(L) 13.0 - 17.5 g/dL [facility] Hct 29.7(L) 38.9 - 50.3 % [facility] Plt 82(L) 150 - 400 K/cumm [facility] MPV 11.2 9.1 - 12.3 fL [facility] RBC 3.32(L) 4.30 - 5.80 M/cumm [facility] CH MCV 89.5 81.3 - 96.4 fL [facility] MCH 30.4 27.1 - 33.3 pg [facility] MCHC 34.0 32.3 - 35.7 g/dL [facility] RDW CV 12.8 11.1 - 14.9 % [facility] RDW SD 42.0 35.7 - 48.1 fL [facility] NRBC abs 0.00 0.00 - 0.01 K/cumm [facility] Blood 07/13/2025 2:09 AM [facility] [employer] 07/13/2025 2:32 AM [employer] us Bobby Diaz MD LAB BLOOD ORDERABLES Final R esult AMI EVANS [address] [place] [address] * Magnesium (07/13/2025 2:09 AM [employer]) Magnesium 2.1 1.4 - 2.5 mg/dL Blood 07/13/2025 2:09 AM [facility] 07/13/2025 2:29 AM [employer] Bobby Diaz MD LAB BLOOD ORDERABLES Final R esult [facility] [address] Department [place] [address] * (ABNORMAL) Basic metabolic panel (07/13/2025 2:09 AM [facility]) Pathologist [facility] Sodium 141 135 - 145 mmol/L Potassium, pl 3.8 3.3 - 4.9 mmol/L [facility] Chloride 106 97 - 110 mmol/L [facility] CO2 21(L) 22 - 32 mmol/L [facility] Anion gap 14 2 - 15 mmol/L [facility] BUN 21 6 - 25 mg/dL [facility] Creatinine 1.19 0.80 - 1.30 mg/dL [facility] Glucose 121 70 - 199 mg/dL [facility] Comment: Interpretive Data Fasting glucose >/= 126 mg/dl is diagnostic for diabetes. Fasting is defined as no caloric intake for at least 8 hours. Fasting glucose between 100 mg/dl to 125 mg/dl is diagnostic of prediabetes. In a patient with classic symptoms of hyperglycemia or hyperglycemic crisis, a random glucose >/= 200 mg/dl is diagnostic for diabetes. In the absence of unequivocal hyperglycemia, results should be confirmed by repeat testing. The classification and Diagnosis of Diabetes Diabetes Care 202; 46: S19-S40. Current interpretive data was last revised 2022. Calcium 8.3(L) 8.5 - 10.3 mg/dL [facility] Blood 07/13/2025 2:09 AM [employer] 07/13/2025 2:28 AM [employer] us Bobby Diaz MD LAB BLOOD ORDERABLES Final R esult AMI EVANS [address] Department [place] [address] * Critical Care (07/12/2025 10:29 PM [employer] [employer]) Narrative Sun Griffiths MD - 07/12/2025 10:29 PM [employer] Sun Griffiths MD 07/16/2025 10:45 PM Critical Care Performed by: Elise Peterson PA Authorized by: Elise Peterson PA CRITICAL CARE: Team: ANUJ Shift: PM Level of Billing: Critical Care My time spent with this patient was 75 minutes: Critical Provider Statement: I have seen and examined the patient on this day of service. I have reviewed and confirmed the history, physical exam, laboratory and radiologic data as documented in the signed ICU note. I have reviewed and discussed my treatment plan with the ICU team and other medical/industrial rehabilitation consultant staff, making frequent assessments and decisions regarding this patient's complex medical care. Critical Care time was exclusive of time spent performing separately billed procedures, treating other patients, and teaching. This time was in addition to and separate from critical care provided by other practitioners in my group on this day of service. Critical Care was necessary to treat or prevent imminent or life-threatening deterioration of the following conditions: I spent time reviewing and interpreting data from bedside monitors, laboratory results, and imaging, I spent time discussing the management of this critically ill patient with consultants and the medical staff and I spent time documenting in the medical record us Elise RAND IN CLINIC/BEDSIDE ORDERABLES Final Result * Oxyhemoglobin, central venous (07/12/2025 10:25 PM [employer]) Oxyhemoglobin, CV 79.3 % Comment: Interpretive Data No reference range established. Current interpretive data was last revised 2019. Blood 07/12/2025 10:2 5 PM [employer] 07/12/2025 10:30 PM [employer] us Bobby Diaz MD LAB BLOOD ORDERABLES Final R esult AMI EVANS [address] Department [place] [address] * eGFR (07/12/2025 10:06 PM [employer]) eGFR 77 >=60 mL/min/1. 73 m2 Comment: Interpretive Data Reference Interval Normal >/= 90 mL/min/1.73m2 Mildly decreased* 60 - 89 mL/min/1.73m2 Mildly to moderately decreased 45 - 59 mL/min/1.73m2 Moderately to severely decreased 30 - 44 mL/min/1.73m2 Severely decreased 15 - 29 mL/min/1.73m2 Kidney Failure < 15 mL/min/1.73m2 *Relative to young adult level Estimated glomerular filtration rate is determined by the 2020 CKD-EPI equation recommended by the National Kidney Foundation (A Unifying Approach to GFR Estimation: Recommendations of the NKF-ASK Task Force on Reassessing the Inclusion of Race in Diagnosing Kidney Disease, JASN 2020). The CKD-EPI equation should not be used for patients with unstable renal function and has not been validated in children and those over 70. Current interpretive data was last reviewed 2021. Blood 07/12/2025 10:0 6 PM [employer] 07/12/2025 10:31 PM [employer] Bobby Diaz MD LAB BLOOD ORDERABLES Final R esult Performing Organization Address [facility] de Phone Number [facility] [address] Department [place] [address] * Magnesium (07/12/2025 10:06 PM [employer] [employer]) Pathologist [facility] Magnesium 2.3 1.4 - 2.5 mg/dL Blood 07/12/2025 10:0 6 PM [employer] 07/12/2025 10:30 PM [employer] Bobby Diaz MD LAB BLOOD ORDERABLES Final R esult Performing Organization Address [facility] de Phone [place] [facility] [place] [address] [address] [place] [address] * (ABNORMAL) Basic metabolic panel (07/12/2025 10:06 PM [employer]) Sodium 140 135 - 145 mmol/L Potassium, pl 3.6 3.3 - 4.9 mmol/L [facility] Chloride 104 97 - 110 mmol/L [facility] CO2 21(L) 22 - 32 mmol/L [facility] Anion gap 15 2 - 15 mmol/L [facility] BUN 20 6 - 25 mg/dL [facility] Creatinine 1.13 0.80 - 1.30 mg/dL [facility] Glucose 120 70 - 199 mg/dL [facility] Comment: Interpretive Data Fasting glucose >/= 126 mg/dl is diagnostic for diabetes. Fasting is defined as no caloric intake for at least 8 hours. Fasting glucose between 100 mg/dl to 125 mg/dl is diagnostic of prediabetes. In a patient with classic symptoms of hyperglycemia or hyperglycemic crisis, a random glucose >/= 200 mg/dl is diagnostic for diabetes. In the absence of unequivocal hyperglycemia, results should be confirmed by repeat testing. The classification and Diagnosis of Diabetes Diabetes Care 2021; 46: S19-S40. Current interpretive data was last revised 2022. Calcium 8.7 8.5 - 10.3 mg/dL [facility] Blood 07/12/2025 10:0 6 PM [employer] 07/12/2025 10:30 PM [employer] [employer] Bobby Diaz MD LAB BLOOD ORDERABLES Final R esult Performing Organization Address City/[facility] Co de Phone Number [facility] [address] [place] [address] * POCT glucose (07/12/2025 8:35 PM [employer]) Glucose, POC 110 70 - 199 mg/dL Blood 07/12/2025 8:35 PM [employer] 07/12/2025 8:35 PM [employer] Bobby Diaz MD LAB POCT ORDERABLES - DEVICE Final Result Performing Organization Address City/[facility]/ZIP Co de Phone Number [facility] [address] [place] [address] * POCT glucose (07/12/2025 7:14 PM [employer]) Glucose, POC 121 70 - 199 mg/dL Blood 07/12/2025 7:14 PM [employer] 07/12/2025 7:14 PM [employer] Bobby Diaz MD LAB POCT ORDERABLES - DEVICE Final Result Performing Organization Address [facility] Co de Phone Number AMI EVANS [address] [facility] [place] [address] * POCT glucose (07/12/2025 4:53 PM [employer]) Glucose, POC 101 70 - 199 mg/dL Blood 07/12/2025 4:53 PM [employer] 07/12/2025 4:53 PM [employer] Bobby Diaz MD LAB POCT ORDERABLES - DEVICE Final Result Performing Organization Address [facility] Co de Phone Number SONYAELIANA [address] [facility] [place] [address] * POCT glucose (07/12/2025 3:48 PM [employer]) Glucose, POC 101 70 - 199 mg/dL Blood 07/12/2025 3:48 PM [employer] 07/12/2025 3:48 PM [employer] Bobby Diaz MD LAB POCT ORDERABLES - DEVICE Final Result Performing Organization Address [facility] de Phone Number [facility] [address] [facility] [place] [address] * (ABNORMAL) Calcium, ionized, whole blood (07/12/2025 1:48 PM [employer]) Ca, ionized, bld 5.49(H) 4.50 - 5.10 mg/dL Blood 07/12/2025 1:48 PM [facility] [employer] 07/12/2025 1:52 PM [facility] [facility] Юлия Ruiz CLIENT APPLICATION SUPPORT SPECIALIST LAB BLOOD ORDERABLES F inal Result Performing Organization Address [facility] Co de Phone Number AMI EVANS [address] [place] [address] * eGFR (07/12/2025 1:48 PM [facility] [employer]) eGFR 85 >=60 mL/min/1. 73 m2 Comment: Interpretive Data Reference Interval Normal >/= 90 mL/min/1.73m2 Mildly decreased* 60 - 89 mL/min/1.73m2 Mildly to moderately decreased 45 - 59 mL/min/1.73m2 Moderately to severely decreased 30 - 44 mL/min/1.73m2 Severely decreased 15 - 29 mL/min/1.73m2 Kidney Failure < 15 mL/min/1.73m2 *Relative to young adult level Estimated glomerular filtration rate is determined by the 2020 CKD-EPI equation recommended by the National Kidney Foundation (A Unifying Approach to GFR Estimation: Recommendations of the NKF-ASK Task Force on Reassessing the Inclusion of Race in Diagnosing Kidney Disease, JASN 2020). The CKD-EPI equation should not be used for patients with unstable renal function and has not been validated in children and those over 70. Current interpretive data was last reviewed 2021. Blood 07/12/2025 1:48 PM [facility] [employer] 07/12/2025 1:59 PM [facility] [facility] Юлия Ruiz CLIENT APPLICATION SUPPORT SPECIALIST LAB BLOOD ORDERABLES F inal Result Performing Organization Address [facility]/ZIP Co de Phone Number AMI EVANS [address] [place] [address] * Magnesium (07/12/2025 1:48 PM [facility] [employer]) Magnesium 1.9 1.4 - 2.5 mg/dL Blood 07/12/2025 1:48 PM [facility] [employer] 07/12/2025 1:52 PM [facility] [facility] Юлия Ruiz CLIENT APPLICATION SUPPORT SPECIALIST LAB BLOOD ORDERABLES F inal Result AMI EVANS [address] [place] [address] * (ABNORMAL) Renal function panel (07/12/2025 1:48 PM [employer] [employer]) Sodium 144 135 - 145 mmol/L Potassium, pl 3.6 3.3 - 4.9 mmol/L [facility] Chloride 111(H) 97 - 110 mmol/L [facility] CO2 22 22 - 32 mmol/L [facility] Anion gap 11 2 - 15 mmol/L [facility] BUN 15 6 - 25 mg/dL [facility] Creatinine 1.04 0.80 - 1.30 mg/dL [facility] Glucose 97 70 - 199 mg/dL [facility] Comment: Interpretive Data Fasting glucose >/= 126 mg/dl is diagnostic for diabetes. Fasting is defined as no caloric intake for at least 8 hours. Fasting glucose between 100 mg/dl to 125 mg/dl is diagnostic of prediabetes. In a patient with classic symptoms of hyperglycemia or hyperglycemic crisis, a random glucose >/= 200 mg/dl is diagnostic for diabetes. In the absence of unequivocal hyperglycemia, results should be confirmed by repeat testing. The classification and Diagnosis of Diabetes Diabetes Care 202; 46: S19-S40. Current interpretive data was last revised 2022. Calcium 9.2 8.5 - 10.3 mg/dL [facility] Phosphorus, pl 4.7(H) 2.3 - 4.5 mg/dL [facility] Albumin 3.8 3.5 - 5.0 g/dL [facility] Blood 07/12/2025 1:48 PM [facility] [employer] [facility] 07/12/2025 1:52 PM [facility] [facility] Юлия Ruiz CLIENT APPLICATION SUPPORT SPECIALIST LAB BLOOD ORDERABLES F inal Result AMI EVANS [address] [place] [address] * POCT glucose (07/12/2025 1:46 PM [employer]) Glucose, POC 96 70 - 199 mg/dL Blood 07/12/2025 1:46 PM [facility] [employer] 07/12/2025 1:46 PM [employer] us Bobby Diaz MD LAB POCT ORDERABLES - DEVICE Final Result Performing Organization Address [facility] de Phone Number AMI EVANS [address] [facility] [place] [address] * POCT glucose (07/12/2025 11:56 AM [employer] [employer]) Glucose, POC 131 70 - 199 mg/dL Blood 07/12/2025 11:5 6 AM [employer] [employer] 07/12/2025 11:56 AM [employer] us Bobby Diaz MD LAB POCT ORDERABLES - DEVICE Final Result Performing Organization Address [facility] de Phone Number AMI [address] [facility] [place] [address] * POCT glucose (07/12/2025 11:09 AM [employer]) Glucose, POC 133 70 - 199 mg/dL Blood 07/12/2025 11:0 9 AM [facility] [employer] 07/12/2025 11:09 AM [employer] us Bobby Diaz MD LAB POCT ORDERABLES - DEVICE Final Result Performing Organization Address [facility] de Phone Number AMI [address] [facility] [place] [address] * POCT glucose (07/12/2025 10:11 AM [employer]) Glucose, POC 165 70 - 199 mg/dL Blood 07/12/2025 10:1 1 AM [facility] [facility] 07/12/2025 10:11 AM [employer] [employer] us Bobby Diaz MD LAB POCT ORDERABLES - DEVICE Final Result Performing Organization Address [facility] Co de Phone Number AMI EVANS [address] Department [employer] [place], [place] [id number] * POCT glucose (07/12/2025 9:01 AM [employer] [employer]) Glucose, POC 153 70 - 199 mg/dL Blood 07/12/2025 9:01 AM [facility] [employer] [facility] 07/12/2025 9:01 AM [facility] Bobby Diaz MD LAB POCT ORDERABLES - DEVICE Final Result Performing Organization Address [facility] Co de Phone Number AMI EVANS [address] [place] [address] * Calcium, ionized, whole blood (07/12/2025 7:57 AM [facility]) Ca, ionized, bld 4.65 4.50 - 5.10 mg/dL Blood 07/12/2025 7:57 AM [facility] 07/12/2025 8:05 AM [facility] us Bobby Diaz MD LAB BLOOD ORDERABLES Final R esult Performing Organization Address [facility] Co de Phone Number AMI EVANS [address] [place] [address] * eGFR (07/12/2025 7:57 AM [facility]) eGFR 85 >=60 mL/min/1. 73 m2 Comment: Interpretive Data Reference Interval Normal >/= 90 mL/min/1.73m2 Mildly decreased* 60 - 89 mL/min/1.73m2 Mildly to moderately decreased 45 - 59 mL/min/1.73m2 Moderately to severely decreased 30 - 44 mL/min/1.73m2 Severely decreased 15 - 29 mL/min/1.73m2 Kidney Failure < 15 mL/min/1.73m2 *Relative to young adult level Estimated glomerular filtration rate is determined by the 2020 CKD-EPI equation recommended by the National Kidney Foundation (A Unifying Approach to GFR Estimation: Recommendations of the NKF-ASK Task Force on Reassessing the Inclusion of Race in Diagnosing Kidney Disease, SN 2020). The CKD-EPI equation should not be used for patients with unstable renal function and has not been validated in children and those over 70. Current interpretive data was last reviewed 2021. Blood 07/12/2025 7:57 AM [facility] 07/12/2025 8:07 AM [facility] Bobby Diaz MD LAB BLOOD ORDERABLES Final R esult AMI EVANS [address] [place] [address] * (ABNORMAL) CBC without differential (07/12/2025 7:57 AM [facility]) WBC 12.29(H) 3.80 - 9.90 K/cumm Hgb 10.2(L) 13.0 - 17.5 g/dL [facility] Hct 30.2(L) 38.9 - 50.3 % [facility] Plt 123(L) 150 - 400 K/cumm [facility] MPV 10.8 9.1 - 12.3 fL [facility] RBC 3.36(L) 4.30 - 5.80 M/cumm [facility] MCV 89.9 81.3 - 96.4 fL [facility] MCH 30.4 27.1 - 33.3 pg [facility] MCHC 33.8 32.3 - 35.7 g/dL [facility] RDW CV 12.4 11.1 - 14.9 % [facility] RDW SD 41.1 35.7 - 48.1 fL [facility] NRBC abs 0.00 0.00 - 0.01 K/cumm [facility] Blood 07/12/2025 7:57 AM [facility] 07/12/2025 8:07 AM [facility] Bobby Diaz MD LAB BLOOD ORDERABLES Final R esult AMI EVANS [address] [place] [address] * Magnesium (07/12/2025 7:57 AM [facility]) Magnesium 2.2 1.4 - 2.5 mg/dL Blood 07/12/2025 7:57 AM [facility] 07/12/2025 8:05 AM [facility] Bobby Diaz MD LAB BLOOD ORDERABLES Final R esult [facility] [address] Department [place] [address] * (ABNORMAL) Basic metabolic panel (07/12/2025 7:57 AM [facility] [employer]) Pathologist [facility] Sodium 145 135 - 145 mmol/L Potassium, pl 4.1 3.3 - 4.9 mmol/L [facility] Chloride 113(H) 97 - 110 mmol/L [facility] CO2 20(L) 22 - 32 mmol/L [facility] Anion gap 12 2 - 15 mmol/L [facility] BUN 16 6 - 25 mg/dL [facility] Creatinine 1.04 0.80 - 1.30 mg/dL [facility] Glucose 138 70 - 199 mg/dL [facility] Comment: Interpretive Data Fasting glucose >/= 126 mg/dl is diagnostic for diabetes. Fasting is defined as no caloric intake for at least 8 hours. Fasting glucose between 100 mg/dl to 125 mg/dl is diagnostic of prediabetes. In a patient with classic symptoms of hyperglycemia or hyperglycemic crisis, a random glucose >/= 200 mg/dl is diagnostic for diabetes. In the absence of unequivocal hyperglycemia, results should be confirmed by repeat testing. The classification and Diagnosis of Diabetes Diabetes Care 202; 46: S19-S40. Current interpretive data was last revised 2022. Calcium 7.8(L) 8.5 - 10.3 mg/dL [facility] Blood 07/12/2025 7:57 AM [facility] 07/12/2025 8:05 AM [facility] [employer] Bobby Diaz MD LAB [place] [address] [address] [place] [address] * POCT glucose (07/12/2025 7:49 AM [facility] [employer]) Glucose, POC 142 70 - 199 mg/dL Blood 07/12/2025 7:49 AM [facility] 07/12/2025 7:49 AM [facility] [employer] Bobby Diaz MD LAB POCT ORDERABLES - DEVICE Final Result Performing Organization Address [facility] [place] [address] [address] Department [place] [address] * ECG 12 lead (07/12/2025 7:41 AM [facility] [employer]) 07/12/2025 7:41 AM [facility] Narrative [facility] - 07/12/2025 11:40 AM [facility] Vent Rate: 92 bpm RR Interval: 647 msec OR Interval: 116 msec QRS Duration: 138 msec QT Interval: 397 msec QTC Interval: 447 msec P-R-[place]: 9 - -59 - 108 degrees IMPRESSION: SINUS RHYTHM WITH SHORT OR INTERVAL LEFT AXIS DEVIATION [QRS AXIS < -30] LEFT BUNDLE-BRANCH BLOCK UNCHANGED Electronically Signed By: Yenny Parry MD Bobby Diaz MD ECG ORDERABLES Final Result Performing Organization Address [facility] de Phone Number [facility] [place] * Critical Care (07/12/2025 6:59 AM [facility]) Narrative Ludy Hanks DO - 07/12/2025 6:59 AM [facility] Ludy Hanks DO 07/16/2025 3:07 PM Critical Care Performed by: Юлия Ruiz NP Authorized by: Юлия Ruiz NP CRITICAL CARE: Team: ANUJ Shift: AM Level of Billing: Critical Care My time spent with this patient was 60 minutes: Critical Provider Statement: I have seen and examined the patient on this day of service. I have reviewed and confirmed the history, physical exam, laboratory and radiologic data as documented in the signed ICU note. I have reviewed and discussed my treatment plan with the ICU team and other medical/industrial rehabilitation consultant staff, making frequent assessments and decisions regarding this patient's complex medical care. Critical Care time was exclusive of time spent performing separately billed procedures, treating other patients, and teaching. This time was in addition to and separate from critical care provided by other practitioners in my group on this day of service. Critical Care was necessary to treat or prevent imminent or life-threatening deterioration of the following conditions: I spent time reviewing and interpreting data from bedside monitors, laboratory results, and imaging, I spent time discussing the management of this critically ill patient with consultants and the medical staff, I spent time documenting in the medical record, I spent time talking to this patient's relatives to obtain additional medical history due to patient's inabililty to provide history and I spent time talking to this patient's surrogate decision maker to determine treatment plans due to patient's inability to participate in decision making us Юлия Ruiz NP IN CLINIC/BEDSIDE VIVIENNE SNELL Final Result * POCT glucose (07/12/2025 6:56 AM [facility] [employer]) Glucose, POC 141 70 - 199 mg/dL Blood 07/12/2025 6:56 AM [facility] 07/12/2025 6:56 AM [facility] [employer] us Bobby Diaz MD LAB POCT ORDERABLES - DEVICE Final Result Performing Organization Address City/State/[facility] Phone Number [facility] [address] Department [place] [address] * XR Chest 1 View - in AM (07/12/2025 6:29 AM [facility] [employer]) Anatomical Region Laterality Modality Body, Chest N/A Computed Radiogr aphy 07/12/2025 9:12 AM [facility] Impressions 07/12/2025 9:12 AM [facility] Findings as described above. Electronically signed by: Khang Doherty M.D. Narrative 07/12/2025 9:12 AM [facility] EXAMINATION: XR CHEST 1 VIEW HISTORY: The patient is a 55-year-old male has had bypass surgery. Comparison made with the previous study dated 07/11/2025. TECHNIQUE: AP portable view of the chest. FINDINGS: Since last exam, the endotracheal and nasogastric tubes have been removed. Left thoracostomy tube and mediastinal drain in place. The tip of the [place]Sasha catheter is in the main pulmonary artery. Heart not enlarged. No infiltrates. Procedure Note Khang Doherty MD - 07/12/2025 EXAMINATION: XR CHEST 1 VIEW HISTORY: The patient is a 55-year-old male has had bypass surgery. Comparison made with the previous study dated 07/11/2025. TECHNIQUE: AP portable view of the chest. FINDINGS: Since last exam, the endotracheal and nasogastric tubes have been removed. Left thoracostomy tube and mediastinal drain in place. The tip of the [place]-Sasha catheter is in the main pulmonary artery. Heart not enlarged. No infiltrates. IMPRESSION: Findings as described above. Electronically signed by: Khang Doherty M.D. Bobby Diaz MD IMG XR PROCEDURES Final Resu lt * POCT glucose (07/12/2025 6:08 AM [facility] [employer]) Glucose, POC 135 70 - 199 mg/dL Blood 07/12/2025 6:08 AM [facility] 07/12/2025 6:08 AM [facility] [facility] Bobby Diaz MD LAB POCT ORDERABLES - DEVICE Final Result AMI [address] Department of Laboratories [place], [place] [id number] * POCT glucose (07/12/2025 4:51 AM [facility] [employer]) Glucose, POC 136 70 - 199 mg/dL Blood 07/12/2025 4:51 AM [facility] 07/12/2025 4:51 AM [facility] [facility] Bobby Diaz MD LAB POCT ORDERABLES - DEVICE Final Result Performing Organization Address [facility] Co de Phone Number AMI EVANS [address] [facility] [address] [employer] [place], [place] [phone] * POCT glucose (07/12/2025 3:47 AM [facility] [employer]) Glucose, POC 136 70 - 199 mg/dL Blood 07/12/2025 3:47 AM [facility] 07/12/2025 3:47 AM [facility] [facility] Bobby Diaz MD LAB POCT ORDERABLES - DEVICE Final Result Performing Organization Address [facility] Co de Phone Number AMI EVANS [address] [facility] [place] [address] * POCT glucose (07/12/2025 2:36 AM [facility] [employer]) Glucose, POC 142 70 - 199 mg/dL Blood 07/12/2025 2:36 AM [facility] 07/12/2025 2:36 AM [facility] [facility] Bobby Diaz MD LAB POCT ORDERABLES - DEVICE Final Result Performing Organization Address [facility] de Phone Number AMI EVANS [address] [facility] [employer] [place], [place] [id number] * Oxyhemoglobin, pulmonary artery (07/12/2025 2:05 AM [facility] [employer]) Oxyhemoglobin, PA 68.2 % Comment: Interpretive Data No reference range established. Current interpretive data was last revised 2019. Blood 07/12/2025 2:05 AM [facility] 07/12/2025 2:47 AM [facility] [employer] us Ramiro Leigh CLIENT APPLICATION SUPPORT SPECIALIST LAB BLOOD ORDERABLES Final Result Performing Organization Address [facility] Co de Phone Number AMI EVANS [address] [place] [address] * (ABNORMAL) Calcium, ionized, whole blood (07/12/2025 2:05 AM [facility]) Ca, ionized, bld 5.14(H) 4.50 - 5.10 mg/dL Blood 07/12/2025 2:05 AM [facility] 07/12/2025 2:47 AM [facility] [employer] Bobby Diaz MD LAB BLOOD ORDERABLES Final R esult Performing Organization Address [facility] Co de Phone Number AMI EVANS [address] [place] [address] * eGFR (07/12/2025 2:05 AM [facility] [employer]) Pathologist [facility] eGFR 82 >=60 mL/min/1. 73 m2 Comment: Interpretive Data Reference Interval Normal >/= 90 mL/min/1.73m2 Mildly decreased* 60 - 89 mL/min/1.73m2 Mildly to moderately decreased 45 - 59 mL/min/1.73m2 Moderately to severely decreased 30 - 44 mL/min/1.73m2 Severely decreased 15 - 29 mL/min/1.73m2 Kidney Failure < 15 mL/min/1.73m2 *Relative to young adult level Estimated glomerular filtration rate is determined by the 2020 CKD-EPI equation recommended by the National Kidney Foundation (A Unifying Approach to GFR Estimation: Recommendations of the NKF-ASK Task Force on Reassessing the Inclusion of Race in Diagnosing Kidney Disease, JASN 2020). The CKD-EPI equation should not be used for patients with unstable renal function and has not been validated in children and those over 70. Current interpretive data was last reviewed 2021. Blood 07/12/2025 2:05 AM [facility] [facility] 07/12/2025 2:47 AM [facility] [facility] Bobby Diaz MD LAB BLOOD ORDERABLES Final R esult Performing Organization Address [facility]/ZIP Co de Phone Number AMI EVANS [address] [place] [address] * (ABNORMAL) CBC without differential (07/12/2025 2:05 AM [facility]) Pathologist [facility] WBC 11.54(H) 3.80 - 9.90 K/cumm Hgb 10.7(L) 13.0 - 17.5 g/dL [facility] Hct 31.1(L) 38.9 - 50.3 % [facility] Plt 125(L) 150 - 400 K/cumm [facility] MPV 10.9 9.1 - 12.3 fL [facility] RBC 3.48(L) 4.30 - 5.80 M/cumm [facility] MCV 89.4 81.3 - 96.4 fL [facility] MCH 30.7 27.1 - 33.3 pg [facility] MCHC 34.4 32.3 - 35.7 g/dL [facility] RDW CV 12.5 11.1 - 14.9 % [facility] RDW SD 41.1 35.7 - 48.1 fL [facility] NRBC abs 0.00 0.00 - 0.01 K/cumm [facility] Blood 07/12/2025 2:05 AM [facility] [employer] 07/12/2025 2:48 AM [facility] Bobby Diaz MD LAB BLOOD ORDERABLES Final R esult Performing Organization Address [facility] Co de Phone Number AMI EVANS [address] [employer] [place], [place] [id number] * Magnesium (07/12/2025 2:05 AM [facility] [employer]) [facility] Magnesium 2.1 1.4 - 2.5 mg/dL Blood 07/12/2025 2:05 AM [facility] 07/12/2025 2:47 AM [facility] [employer] Bobby Diaz MD LAB BLOOD ORDERABLES Final R esult Performing Organization Address [facility] Co de Phone Number AMI EVANS [address] [employer] [place], [place] [phone] * (ABNORMAL) Basic metabolic panel (07/12/2025 2:05 AM [facility] [employer]) Pathologist [facility] Sodium 147(H) 135 - 145 mmol/L Potassium, pl 4.5 3.3 - 4.9 mmol/L [facility] Chloride 112(H) 97 - 110 mmol/L [facility] CO2 21(L) 22 - 32 mmol/L [facility] Anion gap 14 2 - 15 mmol/L [facility] BUN 16 6 - 25 mg/dL [facility] Creatinine 1.08 0.80 - 1.30 mg/dL [facility] Glucose 144 70 - 199 mg/dL [facility] Comment: Interpretive Data Fasting glucose >/= 126 mg/dl is diagnostic for diabetes. Fasting is defined as no caloric intake for at least 8 hours. Fasting glucose between 100 mg/dl to 125 mg/dl is diagnostic of prediabetes. In a patient with classic symptoms of hyperglycemia or hyperglycemic crisis, a random glucose >/= 200 mg/dl is diagnostic for diabetes. In the absence of unequivocal hyperglycemia, results should be confirmed by repeat testing. The classification and Diagnosis of Diabetes Diabetes Care 2021; 46: S19-S40. Current interpretive data was last revised 2022. Calcium 8.3(L) 8.5 - 10.3 mg/dL [facility] Blood 07/12/2025 2:05 AM [facility] 07/12/2025 2:47 AM [facility] [facility] Bobby Diaz MD LAB BLOOD ORDERABLES Final R esult Performing Organization Address [facility] Co de Phone Number [facility] [address] [place] [address] * POCT glucose (07/12/2025 1:43 AM [facility] [employer]) [facility] Glucose, POC 150 70 - 199 mg/dL Blood 07/12/2025 1:43 AM [facility] [employer] 07/12/2025 1:43 AM [facility] [employer] Bobby Diaz MD LAB POCT ORDERABLES - DEVICE Final Result Performing Organization Address [facility] Co de Phone Number [facility] [address] [place] [address] * POCT glucose (07/12/2025 12:34 AM [employer] [employer]) Glucose, POC 169 70 - 199 mg/dL Blood 07/12/2025 12:3 4 AM [facility] [employer] 07/12/2025 12:34 AM [facility] [employer] Bobby Diaz MD LAB POCT ORDERABLES - DEVICE Final Result Performing Organization Address [facility] de Phone Number AIM EVANS [address] [facility] [place] [address] * (ABNORMAL) Blood gas, arterial (07/12/2025 12:29 AM [facility] [employer]) pH, Art 7.37 7.35 - 7.45 PCO2, Arterial 41 35 - 45 mmHg [facility] PO2, Arterial 92 83 - 108 mmHg [facility] HCO3 Art (Calculated) 23 20 - 30 mmol/L [facility] BE, art -1 mmol/L [facility] Comment: Interpretive Data No Reference Range Established Current Interpretive Data was last revised on 2017 O2 Sat Art (Measured) 98(H) 90 - 95 % [facility] Blood 07/12/2025 12:2 9 AM [facility] [employer] 07/12/2025 1:07 AM [facility] [employer] Bobby Diaz MD LAB BLOOD ORDERABLES Final R esult Performing Organization Address [facility] Co de Phone Number SONYAELIANA EVANS [address] [facility] [place] [address] * POCT glucose (07/11/2025 11:26 PM [employer]) Glucose, POC 177 70 - 199 mg/dL Blood 07/11/2025 11:2 6 PM [facility] [employer] 07/11/2025 11:26 PM [facility] [facility] Bobby Diaz MD LAB POCT ORDERABLES - DEVICE Final Result Performing Organization Address [facility] Co de Phone Number SONYAELIANA EVANS [address] [facility] [place] [address] * Critical Care (07/11/2025 11:00 PM [facility] [employer]) Narrative Ritesh Mueller Jr., MD - 07/11/2025 11:00 PM [facility] [employer] Ritesh Mueller Jr., MD 07/12/2025 6:14 AM Critical Care Performed by: Rajwinder Lindsay PA Authorized by: Rajwinder Lindsay PA CRITICAL CARE: Team: ANUJ Shift: PM Level of Billing: Critical Care My time spent with this patient was 60 minutes: Critical Provider Statement: I have seen and examined the patient on this day of service. I have reviewed and confirmed the history, physical exam, laboratory and radiologic data as documented in the signed ICU note. I have reviewed and discussed my treatment plan with the ICU team and other medical/industrial rehabilitation consultant staff, making frequent assessments and decisions regarding this patient's complex medical care. Critical Care time was exclusive of time spent performing separately billed procedures, treating other patients, and teaching. This time was in addition to and separate from critical care provided by other practitioners in my group on this day of service. Critical Care was necessary to treat or prevent imminent or life-threatening deterioration of the following conditions: I spent time reviewing and interpreting data from bedside monitors, laboratory results, and imaging, I spent time discussing the management of this critically ill patient with consultants and the medical staff and I spent time documenting in the medical record Result [facility] Rajwinder RAND IN CLINIC/BEDSIDE ORDERA BLES Final Result * (ABNORMAL) Blood gas, arterial (07/11/2025 10:20 PM [facility] [employer]) pH, Art 7.33(L) 7.35 - 7.45 PCO2, Arterial 43 35 - 45 mmHg [facility] PO2, Arterial 92 83 - 108 mmHg [facility] HCO3 Art (Calculated) 21 20 - 30 mmol/L [facility] BE, art -3 mmol/L [facility] Comment: Interpretive Data No Reference Range Established Current Interpretive Data was last revised on 2017 O2 Sat Art (Measured) 97(H) 90 - 95 % [facility] Blood 07/11/2025 10:2 0 PM [facility] [employer] 07/11/2025 11:32 PM [employer] [employer] us Bobby Diaz MD LAB BLOOD ORDERABLES Final R esult Performing Organization Address [facility] Co de Phone Number AMI EVANS [address] [facility] [place] [address] * POCT glucose (07/11/2025 10:07 PM [facility] [employer]) Glucose, POC 186 70 - 199 mg/dL Blood 07/11/2025 10:0 7 PM [facility] [employer] 07/11/2025 10:07 PM [facility] [employer] us Bobby Diaz MD LAB POCT ORDERABLES - DEVICE Final Result Performing Organization Address [facility] Co de Phone Number AMI EVANS [address] [facility] [place] [address] * (ABNORMAL) Calcium, ionized, whole blood (07/11/2025 10:03 PM [facility] [employer]) Ca, ionized, bld 4.45(L) 4.50 - 5.10 mg/dL Blood 07/11/2025 10:0 3 PM [facility] [employer] 07/11/2025 10:15 PM [employer] [employer] us Bobby Diaz MD LAB BLOOD ORDERABLES Final R esult Performing Organization Address [facility] Co de Phone Number AMI EVANS [address] [facility] [place] [address] * eGFR (07/11/2025 10:03 PM [facility] [employer]) eGFR 81 >=60 mL/min/1. 73 m2 Comment: Interpretive Data Reference Interval Normal >/= 90 mL/min/1.73m2 Mildly decreased* 60 - 89 mL/min/1.73m2 Mildly to moderately decreased 45 - 59 mL/min/1.73m2 Moderately to severely decreased 30 - 44 mL/min/1.73m2 Severely decreased 15 - 29 mL/min/1.73m2 Kidney Failure < 15 mL/min/1.73m2 *Relative to young adult level Estimated glomerular filtration rate is determined by the 2020 CKD-EPI equation recommended by the National Kidney Foundation (A Unifying Approach to GFR Estimation: Recommendations of the NKF-ASK Task Force on Reassessing the Inclusion of Race in Diagnosing Kidney Disease, JASN 202). The CKD-EPI equation should not be used for patients with unstable renal function and has not been validated in children and those over 70. Current interpretive data was last reviewed 2021. Blood 07/11/2025 10:0 3 PM [employer] [employer] 07/11/2025 10:18 PM [employer] [employer] us Bobby Diaz MD LAB BLOOD ORDERABLES Final R esult AMI [address] Department [place] [address] * (ABNORMAL) CBC without differential (07/11/2025 10:03 PM [facility] [employer]) WBC 11.70(H) 3.80 - 9.90 K/cumm Hgb 10.9(L) 13.0 - 17.5 g/dL [facility] Hct 31.1(L) 38.9 - 50.3 % [facility] Plt 125(L) 150 - 400 K/cumm [facility] MPV 10.8 9.1 - 12.3 fL [facility] RBC 3.47(L) 4.30 - 5.80 M/cumm [facility] MCV 89.6 81.3 - 96.4 fL [facility] MCH 31.4 27.1 - 33.3 pg [facility] MCHC 35.0 32.3 - 35.7 g/dL [facility] RDW CV 12.4 11.1 - 14.9 % [facility] RDW SD 40.3 35.7 - 48.1 fL [facility] NRBC abs 0.00 0.00 - 0.01 K/cumm [facility] Blood 07/11/2025 10:0 3 PM [employer] [employer] 07/11/2025 10:16 PM [facility] [employer] Bobby Diaz MD LAB BLOOD ORDERABLES Final R esult AMI EVANS [address] [place] [address] * Magnesium (07/11/2025 10:03 PM [facility] [employer]) Pathologist [facility] Magnesium 2.0 1.4 - 2.5 mg/dL Blood 07/11/2025 10:0 3 PM [employer] [employer] 07/11/2025 10:16 PM [facility] [employer] Bobby Diaz MD LAB BLOOD ORDERABLES Final R [facility] [[email or web address]] Performing Organization Address [facility] Co de Phone Number AMI EVANS [address] [place] [address] * (ABNORMAL) Basic metabolic panel (07/11/2025 10:03 PM [facility] [employer]) Pathologist [facility] Sodium 144 135 - 145 mmol/L Potassium, pl 3.2(L) 3.3 - 4.9 mmol/L [facility] Chloride 114(H) 97 - 110 mmol/L [facility] CO2 20(L) 22 - 32 mmol/L [facility] Anion gap 10 2 - 15 mmol/L [facility] BUN 18 6 - 25 mg/dL [facility] Creatinine 1.09 0.80 - 1.30 mg/dL [facility] Comment:Icteric sample, test results may be affected. Glucose 197 70 - 199 mg/dL [facility] Comment: Interpretive Data Fasting glucose >/= 126 mg/dl is diagnostic for diabetes. Fasting is defined as no caloric intake for at least 8 hours. Fasting glucose between 100 mg/dl to 125 mg/dl is diagnostic of prediabetes. In a patient with classic symptoms of hyperglycemia or hyperglycemic crisis, a random glucose >/= 200 mg/dl is diagnostic for diabetes. In the absence of unequivocal hyperglycemia, results should be confirmed by repeat testing. The classification and Diagnosis of Diabetes Diabetes Care 2021; 46: S19-S40. Current interpretive data was last revised 2022. Calcium 8.0(L) 8.5 - 10.3 mg/dL [facility] Blood 07/11/2025 10:0 3 PM [facility] 07/11/2025 10:16 PM [facility] us Bobby Diaz MD LAB BLOOD ORDERABLES Final R esult AMI EVANS [address] [facility] [place] [address] * POCT glucose (07/11/2025 9:13 PM [facility] [employer]) Glucose, POC 174 70 - 199 mg/dL Blood 07/11/2025 9:13 PM [facility] 07/11/2025 9:13 PM [facility] [employer] us Bobby Diaz MD LAB POCT ORDERABLES - DEVICE Final Result Performing Organization Address [facility] Co de Phone Number AMI EVANS [address] [facility] [place] [address] * POCT glucose (07/11/2025 8:11 PM [facility]) Glucose, POC 165 70 - 199 mg/dL Blood 07/11/2025 8:11 PM [facility] 07/11/2025 8:11 PM [facility] us Bobby Diaz MD LAB POCT ORDERABLES - DEVICE Final Result Performing Organization Address [facility] Co de Phone Number SONYAELIANA EVANS [address] [facility] [employer] [place], [place] [phone] * POCT glucose (07/11/2025 6:53 PM [facility] [employer]) Glucose, POC 154 70 - 199 mg/dL Blood 07/11/2025 6:53 PM [facility] 07/11/2025 6:53 PM [facility] [employer] us Bobby Diaz MD LAB POCT ORDERABLES - DEVICE Final Result Performing Organization Address City/[facility]/ZIP Co de Phone Number SONYAELIANA EVANS [address] [address] [facility] [employer] [place], [place] [phone] * POCT glucose (07/11/2025 5:58 PM [facility] [employer]) Glucose, POC 117 70 - 199 mg/dL Blood 07/11/2025 5:58 PM [facility] 07/11/2025 5:58 PM [facility] [employer] us Bobby Diaz MD LAB POCT ORDERABLES - DEVICE Final Result Performing Organization Address City/[facility]/ZIP Co de Phone Number AMI EVANS [address] [place] [address] * eGFR (07/11/2025 5:12 PM [facility] [employer]) [facility] eGFR 82 >=60 mL/min/1. 73 m2 Comment: Interpretive Data Reference Interval Normal >/= 90 mL/min/1.73m2 Mildly decreased* 60 - 89 mL/min/1.73m2 Mildly to moderately decreased 45 - 59 mL/min/1.73m2 Moderately to severely decreased 30 - 44 mL/min/1.73m2 Severely decreased 15 - 29 mL/min/1.73m2 Kidney Failure < 15 mL/min/1.73m2 *Relative to young adult level Estimated glomerular filtration rate is determined by the 2020 CKD-EPI equation recommended by the National Kidney Foundation (A Unifying Approach to GFR Estimation: Recommendations of the NKF-ASK Task Force on Reassessing the Inclusion of Race in Diagnosing Kidney Disease, JASN 2020). The CKD-EPI equation should not be used for patients with unstable renal function and has not been validated in children and those over 70. Current interpretive data was last reviewed 2021. Blood 07/11/2025 5:12 PM [facility] 07/11/2025 5:13 PM [facility] [employer] us Ramiro Leigh NP LAB BLOOD ORDERABLES Final Result Performing Organization Address City/[facility]/[place] [address] [address] Department Vascular Closure [place], [place] [phone] * (ABNORMAL) Protime-INR (07/11/2025 5:12 PM [facility]) [facility] PT 19.7(H) 10.2 - 13.5 sec INR 1.76(H) 0.90 - 1.20 [facility] Comment: Interpretive data Oral anticoagulant therapeutic ranges: Venous thromboembolism prophylaxis or treatment: 2.0-3.0 CARDIOLOGY Standard range: 2.0-3.0 High-intensity range: 2.5-3.5 Refer to indication-specific guidelines for appropriate target ranges for prosthetic heart valve replacement. Current interpretive data was last revised on 2019. Blood 07/11/2025 5:12 PM [facility] 07/11/2025 5:13 PM [facility] Ramiro Leigh NP LAB BLOOD ORDERABLES Final Result AMI [address] [address] Department [place] [address] * (ABNORMAL) CBC without differential (07/11/2025 5:12 PM [facility]) Pathologist [facility] WBC 13.31(H) 3.80 - 9.90 K/cumm Hgb 11.5(L) 13.0 - 17.5 g/dL [facility] Hct 33.1(L) 38.9 - 50.3 % [facility] Plt 123(L) 150 - 400 K/cumm [facility] MPV 10.6 9.1 - 12.3 fL [facility] RBC 3.73(L) 4.30 - 5.80 M/cumm [facility] MCV 88.7 81.3 - 96.4 fL [facility] MCH 30.8 27.1 - 33.3 pg [facility] MCHC 34.7 32.3 - 35.7 g/dL [facility] RDW CV 12.1 11.1 - 14.9 % [facility] RDW SD 39.3 35.7 - 48.1 fL [facility] NRBC abs 0.00 0.00 - 0.01 K/cumm [facility] Blood 07/11/2025 5:12 PM [facility] 07/11/2025 5:13 PM [facility] Ramiro Leigh CLIENT APPLICATION SUPPORT SPECIALIST LAB BLOOD ORDERABLES Final Result Performing Organization Address [facility] Co de Phone Number AMI EVANS [address] [facility] [address] [employer] [place], [place] [phone] * Magnesium (07/11/2025 5:12 PM [facility]) Pathologist [facility] Magnesium 1.8 1.4 - 2.5 mg/dL Blood 07/11/2025 5:12 PM [facility] 07/11/2025 5:13 PM [facility] Ramiro Leigh CLIENT APPLICATION SUPPORT SPECIALIST LAB BLOOD ORDERABLES Final Result Performing Organization Address [facility] Phone Number AMI EVANS [address] [facility] [place] [address] * (ABNORMAL) Blood gas, arterial (07/11/2025 5:12 PM [facility]) Pathologist [facility] pH, Art 7.35 7.35 - 7.45 PCO2, Arterial 42 35 - 45 mmHg [facility] PO2, Arterial 188(H) 83 - 108 mmHg [facility] HCO3 Art (Calculated) 23 20 - 30 mmol/L [facility] BE, art -2 mmol/L [facility] Comment: Interpretive Data No Reference Range Established Current Interpretive Data was last revised on 2017 O2 Sat Art (Measured) 100(H) 90 - 95 % [facility] Blood 07/11/2025 5:12 PM [facility] 07/11/2025 5:12 PM [facility] Ramiro Leigh CLIENT APPLICATION SUPPORT SPECIALIST LAB BLOOD ORDERABLES Final Result Performing Organization Address [facility] Co de Phone Number AMI EVANS [address] [facility] [place] [address] * (ABNORMAL) Basic metabolic panel (07/11/2025 5:12 PM [facility]) Sodium 145 135 - 145 mmol/L Potassium, pl 3.3 3.3 - 4.9 mmol/L [facility] Chloride 113(H) 97 - 110 mmol/L [facility] CO2 21(L) 22 - 32 mmol/L [facility] Anion gap 11 2 - 15 mmol/L [facility] BUN 18 6 - 25 mg/dL [facility] Creatinine 1.07 0.80 - 1.30 mg/dL [facility] Comment:Icteric sample, test results may be affected. Glucose 151 70 - 199 mg/dL [facility] Comment: Interpretive Data Fasting glucose >/= 126 mg/dl is diagnostic for diabetes. Fasting is defined as no caloric intake for at least 8 hours. Fasting glucose between 100 mg/dl to 125 mg/dl is diagnostic of prediabetes. In a patient with classic symptoms of hyperglycemia or hyperglycemic crisis, a random glucose >/= 200 mg/dl is diagnostic for diabetes. In the absence of unequivocal hyperglycemia, results should be confirmed by repeat testing. The classification and Diagnosis of Diabetes Diabetes Care 2021; 46: S19-S40. Current interpretive data was last revised 2022. Calcium 7.9(L) 8.5 - 10.3 mg/dL [facility] Blood 07/11/2025 5:12 PM [facility] 07/11/2025 5:13 PM [facility] [employer] us Ramiro Leigh NP LAB BLOOD ORDERABLES Final Result Performing Organization Address City/[facility] Co de Phone Number AMI [address] [place] [address] * POCT glucose (07/11/2025 4:42 PM [facility]) Glucose, POC 92 70 - 199 mg/dL Blood 07/11/2025 4:42 PM [facility] [facility] 07/11/2025 4:42 PM [facility] Bobby Diaz MD LAB POCT ORDERABLES - DEVICE Final Result [facility] [address] [address] [place] [address] * POCT glucose (07/11/2025 3:21 PM [facility] [employer]) Glucose, POC 83 70 - 199 mg/dL Blood 07/11/2025 3:21 PM [facility] [facility] 07/11/2025 3:21 PM [facility] us Bobby Diaz MD LAB POCT ORDERABLES - DEVICE Final Result Performing Organization Address [facility] Co de Phone Number AMI EVANS [address] [address] [place] [address] * POCT glucose (07/11/2025 2:24 PM [facility] [employer]) Glucose, POC 75 70 - 199 mg/dL Blood 07/11/2025 2:24 PM [facility] [facility] 07/11/2025 2:24 PM [facility] [facility] Result [facility] us Bobby Diaz MD LAB POCT ORDERABLES - DEVICE Final Result Performing Organization Address [facility] de Phone Number AMI EVANS [address] [place] [address] * Critical Care (07/11/2025 2:17 PM [facility]) Ludy Dumont, - 07/11/2025 2:17 PM [facility] Ludy Hanks, 07/11/2025 5:28 PM Critical Care Performed by: Keyana Melton PA Authorized by: Keyana Melton PA CRITICAL CARE: Team: ITALIA Shift: AM Level of Billing: Critical Care My time spent with this patient was 90 minutes: Critical Provider Statement: I have seen and examined the patient on this day of service. I have reviewed and confirmed the history, physical exam, laboratory and radiologic data as documented in the signed ICU note. I have reviewed and discussed my treatment plan with the ICU team and other medical/industrial rehabilitation consultant staff, making frequent assessments and decisions regarding this patient's complex medical care. Critical Care time was exclusive of time spent performing separately billed procedures, treating other patients, and teaching. This time was in addition to and separate from critical care provided by other practitioners in my group on this day of service. Critical Care was necessary to treat or prevent imminent or life-threatening deterioration of the following conditions: I spent time reviewing and interpreting data from bedside monitors, laboratory results, and imaging, I spent time discussing the management of this critically ill patient with consultants and the medical staff and I spent time documenting in the medical record us Keyana [facility]BEDSIDE VIVIENNE SNELL Final Result * XR Chest 1 View (07/11/2025 2:15 PM [facility] [employer]) Anatomical Region Laterality Modality Body, Chest N/A Computed Radiogr aphy 07/11/2025 2:22 PM [facility] Impressions 07/11/2025 2:22 PM [facility] Findings as described above. Electronically signed by: Khang Doherty M.D. Narrative 07/11/2025 2:22 PM [facility] EXAMINATION: XR CHEST 1 VIEW HISTORY: The patient is a 55-year-old male who has had bypass surgery. Comparison made with the previous study dated 06/28/2025. TECHNIQUE: AP portable view of the chest. FINDINGS: Borderline cardiomegaly with aortic atherosclerosis. No failure. No active infiltrate. Left thoracostomy tube and mediastinal drain in place. The tip of the [place]-Sasha catheter is at the origin of the right main pulmonary artery. The distal tip of the endotracheal tube is approximately 4 cm above the level of radha. The distal tubing of the nasogastric tube is seen coursing towards the stomach. Procedure Note Khang Doherty MD - 07/11/2025 EXAMINATION: XR CHEST 1 VIEW HISTORY: The patient is a 55-year-old male who has had bypass surgery. Comparison made with the previous study dated 06/28/2025. TECHNIQUE: AP portable view of the chest. FINDINGS: Borderline cardiomegaly with aortic atherosclerosis. No failure. No active infiltrate. Left thoracostomy tube and mediastinal drain in place. The tip of the [place]-Sasha catheter is at the origin of the right main pulmonary artery. The distal tip of the endotracheal tube is approximately 4 cm above the level of radha. The distal tubing of the nasogastric tube is seen coursing towards the stomach. IMPRESSION: Findings as described above. Electronically signed by: Khang Doherty M.D. Bobby Diaz MD IMG XR PROCEDURES Final Resu lt * Lactate (07/11/2025 2:14 PM [facility]) Lactate 2.0 0.7 - 2.0 mmol/L Blood 07/11/2025 2:14 PM [facility] [facility] 07/11/2025 2:17 PM [facility] Bobby Diaz MD LAB BLOOD ORDERABLES Final R esult Performing Organization Address City/[facility] Co de Phone Number AMI [address] [address] [place] [address] * (ABNORMAL) Calcium, ionized, whole blood (07/11/2025 2:14 PM [facility]) Ca, ionized, bld 4.28(L) 4.50 - 5.10 mg/dL Blood 07/11/2025 2:14 PM [facility] [facility] 07/11/2025 2:17 PM [facility] [employer] us Bobby Diaz MD LAB BLOOD ORDERABLES Final R esult Performing Organization Address [facility] Co de Phone Number AMI [address] [place] [address] * eGFR (07/11/2025 2:14 PM [facility]) eGFR 88 >=60 mL/min/1. 73 m2 Comment: Interpretive Data Reference Interval Normal >/= 90 mL/min/1.73m2 Mildly decreased* 60 - 89 mL/min/1.73m2 Mildly to moderately decreased 45 - 59 mL/min/1.73m2 Moderately to severely decreased 30 - 44 mL/min/1.73m2 Severely decreased 15 - 29 mL/min/1.73m2 Kidney Failure < 15 mL/min/1.73m2 *Relative to young adult level Estimated glomerular filtration rate is determined by the 2020 CKD-EPI equation recommended by the National Kidney Foundation (A Unifying Approach to GFR Estimation: Recommendations of the NKF-ASK Task Force on Reassessing the Inclusion of Race in Diagnosing Kidney Disease, JASN 2020). The CKD-EPI equation should not be used for patients with unstable renal function and has not been validated in children and those over 70. Current interpretive data was last reviewed 2021. Blood 07/11/2025 2:14 PM [facility] 07/11/2025 2:24 PM [facility] Bobby Diaz MD LAB BLOOD ORDERABLES Final R esult Performing Organization Address [facility] Co de Phone Number [facility] [address] [place] [address] * aPTT (07/11/2025 2:14 PM [facility] [employer]) aPTT 34 26 - 38 sec Comment: Interpretive Data Heparin therapeutic range: 66.0 - 100.0 seconds. Range based on correlation with therapeutic heparin activity range of 0.3 - 0.7 Units/mL. Blood 07/11/2025 2:14 PM [facility] 07/11/2025 2:21 PM [facility] Bobby Diaz MD LAB BLOOD ORDERABLES Final R [facility] Performing Organization Address [facility] de Phone Number [facility] [address] [address] [facility] [address] [employer] [place], [place] [phone] * (ABNORMAL) Protime-INR (07/11/2025 2:14 PM [facility] [employer]) PT 21.2(H) 10.2 - 13.5 sec INR 1.90(H) 0.90 - 1.20 [facility] Comment: Interpretive data Oral anticoagulant therapeutic ranges: Venous thromboembolism prophylaxis or treatment: 2.0-3.0 CARDIOLOGY Standard range: 2.0-3.0 High-intensity range: 2.5-3.5 Refer to indication-specific guidelines for appropriate target ranges for prosthetic heart valve replacement. Current interpretive data was last revised on 2019. Blood 07/11/2025 2:14 PM [facility] [employer] 07/11/2025 2:21 PM [facility] Bobby Diaz MD LAB BLOOD ORDERABLES Final R esult Performing Organization Address City/[facility]/ZIP Co de Phone Number AMI EVANS [address] [place] [address] * (ABNORMAL) CBC without differential (07/11/2025 2:14 PM [facility] [employer]) WBC 11.11(H) 3.80 - 9.90 K/cumm Hgb 12.3(L) 13.0 - 17.5 g/dL [facility] Hct 34.9(L) 38.9 - 50.3 % [facility] Plt 117(L) 150 - 400 K/cumm [facility] MPV 10.4 9.1 - 12.3 fL [facility] RBC 3.96(L) 4.30 - 5.80 M/cumm [facility] MCV 88.1 81.3 - 96.4 fL [facility] MCH 31.1 27.1 - 33.3 pg [facility] MCHC 35.2 32.3 - 35.7 g/dL [facility] RDW CV 12.0 11.1 - 14.9 % [facility] RDW SD 38.8 35.7 - 48.1 fL [facility] NRBC abs 0.00 0.00 - 0.01 K/cumm [facility] Blood 07/11/2025 2:14 PM [facility] [employer] 07/11/2025 2:21 PM [facility] Bobby Diaz MD LAB BLOOD ORDERABLES Final R esult AMI EVANS [address] [place] [address] * Magnesium (07/11/2025 2:14 PM [facility] [employer]) Magnesium 1.9 1.4 - 2.5 mg/dL Blood 07/11/2025 2:14 PM [facility] [employer] 07/11/2025 2:17 PM [facility] [employer] Bobby Diaz MD LAB BLOOD ORDERABLES Final R esult Performing Organization Address [facility] de Phone Number AMI EVANS [address] [address] Department [place] [address] * (ABNORMAL) Blood gas, arterial (07/11/2025 2:14 PM [facility] [employer]) pH, Art 7.36 7.35 - 7.45 PCO2, Arterial 43 35 - 45 mmHg [facility] PO2, Arterial 117(H) 83 - 108 mmHg [facility] HCO3 Art (Calculated) 24 20 - 30 mmol/L [facility] BE, art -1 mmol/L [facility] Comment: Interpretive Data No Reference Range Established Current Interpretive Data was last revised on 2017 O2 Sat Art (Measured) 98(H) 90 - 95 % [facility] Blood 07/11/2025 2:14 PM [facility] [employer] 07/11/2025 2:17 PM [facility] [employer] Bobby Diaz MD LAB BLOOD ORDERABLES Final R [email or web address]] Performing Organization Address [facility] de Phone Number AMI EVANS [address] [address] Department [place] [address] * (ABNORMAL) Basic metabolic panel (07/11/2025 2:14 PM [facility] [employer]) Sodium 146(H) 135 - 145 mmol/L Potassium, pl 3.9 3.3 - 4.9 mmol/L [facility] Chloride 115(H) 97 - 110 mmol/L [facility] CO2 22 22 - 32 mmol/L [facility] Anion gap 9 2 - 15 mmol/L [facility] BUN 19 6 - 25 mg/dL [facility] Creatinine 1.01 0.80 - 1.30 mg/dL [facility] Glucose 109 70 - 199 mg/dL [facility] Comment: Interpretive Data Fasting glucose >/= 126 mg/dl is diagnostic for diabetes. Fasting is defined as no caloric intake for at least 8 hours. Fasting glucose between 100 mg/dl to 125 mg/dl is diagnostic of prediabetes. In a patient with classic symptoms of hyperglycemia or hyperglycemic crisis, a random glucose >/= 200 mg/dl is diagnostic for diabetes. In the absence of unequivocal hyperglycemia, results should be confirmed by repeat testing. The classification and Diagnosis of Diabetes Diabetes Care 2021; 46: S19-S40. Current interpretive data was last revised 2022. Calcium 7.2(L) 8.5 - 10.3 mg/dL [facility] Blood 07/11/2025 2:14 PM [facility] [employer] 07/11/2025 2:17 PM [employer] us Bobby Diaz MD LAB BLOOD [place] [address] [address] Department [place] [address] * (ABNORMAL) POC Blood Gas and Chemistries, Arterial - (07/11/2025 1:34 PM [facility] [employer]) pH, Art POC 7.38 7.35 - 7.45 pCO2, Art POC 41 35 - 45 mmHg [facility] pO2, Art POC 111(H) 83 - 108 mmHg [facility] Na, POC 143 135 - 145 mmol/L [facility] K POC 3.8 3.3 - 4.9 mmol/L [facility] Comment: Interpretive Data This method is not able to assess for hemolysis, which may falsely increase potassium concentrations. If further testing is needed to evaluate this result, consider in-laboratory plasma potassium. Current Interpretive Data was last revised on 2022. Ionized Ca, POC 4.06(L) 4.50 - 5.10 mg/dL [facility] Glucose, POC 113 70 - 199 mg/dL [facility] Lactate POC 2.1(H) 0.7 - 2.0 mmol/L [facility] O2Hb, Art POC 96.9(H) 90.0 - 95.0 % [facility] SO2 (loulou) arterial 99(H) 90 - 95 % [facility] Total CO2, Art POC 26 21 - 30 mmol/L [facility] BE, art, POC -0.8 mmol/L [facility] Hct, POC 34.0(L) 41.4 - 51.6 % [facility] Total Hb, POC 11.4(L) 13.8 - 17.2 g/dL [facility] Blood 07/11/2025 1:34 PM [facility] 07/11/2025 1:34 PM [facility] Bobby Diaz MD LAB POCT ORDERABLES - DEVICE Final Result Performing Organization Address [facility] de Phone Number AMI EVANS [address] [address] [facility] [place] [address] * (ABNORMAL) POC Activated Clotting Time, High Range (07/11/2025 1:05 PM [facility] [employer]) ACT 140(H) 87 - 138 sec Blood 07/11/2025 1:05 PM [facility] 07/11/2025 1:05 PM [facility] Bobby Diaz MD LAB BLOOD ORDERABLES Final R esult Performing Organization Address [facility] de Phone Number AMI EVANS [address] [facility] [place] [address] * (ABNORMAL) Platelet count (07/11/2025 12:57 PM [facility] [employer]) Plt 132(L) 150 - 400 K/cumm Blood 07/11/2025 12:5 7 PM [facility] 07/11/2025 1:00 PM [facility] [employer] Result [facility] Bobby Diaz MD LAB BLOOD ORDERABLES Final R esult Performing Organization Address [facility] de Phone Number AMI [address] [facility] [place] [address] * BRENDA (07/11/2025 12:54 PM [facility]) Anatomical Region Laterality Modality Other Narrative 07/11/2025 12:54 PM [facility] [employer] Elizabeth Herrera MD 07/11/2025 12:55 PM BRENDA Date/time: 07/11/2025 9:00 AM Staff: Supervising anesthesiologist: Elizabeth Herrera MD Performed by: Anesthesiologist: Elizabeth Herrera MD Preprocedure checklist: patient identified, procedure contraindications assessed and BRENDA probe inserted into esophagus using lubricating jelly General procedure Information: Reason for procedure/indications: assessment of surgical repair and hemodynamic monitoring Procedure performed at surgeon's request: yes Results discussed with surgeon: yes Images submitted to archive: no Patient location: OR Intubated: yes Bite blocked placed: yes Probe Insertion: easy Complications: no Probe type: adult Modalities: 2D imaging, continuous wave Doppler, pulsed wave Doppler and color Doppler Echocardiographic and doppler measurements: Ventricles: Left ventricle: Cavity size: normal Hypertrophy: Yes Thrombus: No Global function: normal LVEF%: normal Right ventricle: Cavity size: normal Hypertrophy: no Thrombus: No Global function: normal RVEF%: normal Interventricular septum: normal Regional function: 1- Basal anteroseptal: normal 2- Basal anterior: normal 3- Basal anterolateral: normal 4- Basal inferolateral: normal 5- Basal inferior: normal 6- Basal inferoseptal: normal 7- Mid anteroseptal: normal 8- Mid anterior: normal 9- Mid anterolateral: normal 10- Mid inferolateral: normal 11- Mid inferior: normal 12- Mid inferoseptal: normal 13- Apical anterior: normal 14- Apical lateral: normal 15- Apical inferior: normal 16- Apical septal: normal 17- [place]: normal Valves: Aortic Valve: Annulus: normal Leaflet morphology: normal Leaflet motion: normal Stenosis: none Regurgitation: none Mitral valve: Annulus: normal Leaflet morphology anterior: normal Leaflet morphology posterior: normal Leaflet motion anterior: normal Stenosis: none Regurgitation: mild Tricuspid valve: Annulus: normal Leaflet morphology: normal Leaflet motion: normal Stenosis: none Regurgitation: mild Aorta: Ascending aorta: Size: normal Dissection: no Descending aorta: Size: normal Dissection: no Plaque thickness(mm): 0-3 Plaque mobile: no Atria: Right atrium: Size: normal Spontaneous echo contrast: No Thrombus: no Mass: No Left atrium: Size: normal (normal) Spontaneous echo contrast: No Thrombus: no Mass: No Left atrial appendage: normal Interatrial septum: normal Diastolic function and other findings: Diastolic function: normal Pericardium: normal Left pleural effusion: none Right pleural effusion: normal Pulmonary venous flow: normal Postprocedure (follow-up) BRENDA exam: LV: unchanged RV: unchanged Interventricular septum: unchanged Aortic valve: unchanged Mitral valve: unchanged Pulmonic valve: unchanged Tricuspid valve: unchanged Atria: unchanged Aorta: unchanged Pericardium: unchanged Left pleural: unchanged Right pleural: unchanged Attestation Statement: By signing this report the attending anesthesiologist certifies that he or she has personally reviewed and interpreted the echocardiogram and has reviewed and or edited and agrees with the written comments contained within the report. us Elizabeth Herrera MD ANESTHESIA ORDERABLES Final Resu lt * Transfuse platelets (07/11/2025 12:46 PM [facility] [employer]) Blood Elizabeth Herrera MD BLOOD TRANSFUSION ORDERABLES Fin al Result [facility] [address] Department [place] [address] * (ABNORMAL) POC Blood Gas and Chemistries, Arterial - (07/11/2025 12:38 PM [facility] [employer] [employer]) pH, Art POC 7.37 7.35 - 7.45 pCO2, Art POC 41 35 - 45 mmHg [facility] pO2, Art POC 176(H) 83 - 108 mmHg [facility] Na, POC 142 135 - 145 mmol/L [facility] K POC 4.5 3.3 - 4.9 mmol/L CERN[facility] Comment: Interpretive Data This method is not able to assess for hemolysis, which may falsely increase potassium concentrations. If further testing is needed to evaluate this result, consider in-laboratory plasma potassium. Current Interpretive Data was last revised on 2022. Ionized Ca, POC 3.95(L) 4.50 - 5.10 mg/dL [facility] Glucose, POC 150 70 - 199 mg/dL [facility] Lactate POC 2.2(H) 0.7 - 2.0 mmol/L [facility] O2Hb, Art POC 97.2(H) 90.0 - 95.0 % [facility] SO2 (loulou) arterial 100(H) 90 - 95 % [facility] Total CO2, Art POC 25 21 - 30 mmol/L [facility] BE, art, POC -1.5 mmol/L [facility] Hct, POC 29.0(L) 41.4 - 51.6 % [facility] Total Hb, POC 9.6(L) 13.8 - 17.2 g/dL [facility] CH Blood 07/11/2025 12:3 8 PM [facility] 07/11/2025 12:38 PM [facility] Bobby Diaz MD LAB POCT ORDERABLES - DEVICE Final Result Performing Organization Address City/[facility]/ZIP Co de Phone Number AMI EVANS [address] [facility] [employer] [place], [place] [id number] * (ABNORMAL) POC Activated Clotting Time, High Range (07/11/2025 12:34 PM [facility] [employer]) ACT 167(H) 87 - 138 sec Blood 07/11/2025 12:3 4 PM [facility] [employer] 07/11/2025 12:34 PM [facility] [employer] Bobby Diaz MD LAB BLOOD ORDERABLES Final R esult Performing Organization Address [facility] Co de Phone Number AMI EVANS [address] [place] [address] * (ABNORMAL) POC Blood Gas and Chemistries, Arterial - (07/11/2025 11:36 AM [facility] [employer]) pH, Art POC 7.37 7.35 - 7.45 pCO2, Art POC 38 35 - 45 mmHg [facility] CH pO2, Art POC 280(H) 83 - 108 mmHg [facility] CH Na, POC 142 135 - 145 mmol/L [facility] K POC 5.7(H) 3.3 - 4.9 mmol/L [facility] CH Comment: Interpretive Data This method is not able to assess for hemolysis, which may falsely increase potassium concentrations. If further testing is needed to evaluate this result, consider in-laboratory plasma potassium. Current Interpretive Data was last revised on 2022. Ionized Ca, POC 3.35(L) 4.50 - 5.10 mg/dL [facility] CH Glucose, POC 94 70 - 199 mg/dL [facility] CH Lactate POC 1.2 0.7 - 2.0 mmol/L [facility] CH O2Hb, Art POC 97.1(H) 90.0 - 95.0 % [facility] CH SO2 (loulou) arterial 100(H) 90 - 95 % [facility] Total CO2, Art POC 23 21 - 30 mmol/L [facility] BE, art, POC -3.0 mmol/L [facility] Hct, POC 28.0(L) 41.4 - 51.6 % [facility] CH Total Hb, POC 9.2(L) 13.8 - 17.2 g/dL [facility] CH Blood 07/11/2025 11:3 6 AM [facility] [employer] 07/11/2025 11:36 AM [facility] [employer] Bobby Diaz MD LAB POCT ORDERABLES - DEVICE Final Result Performing Organization Address [facility] Co de Phone Number AMI EVANS [address] [facility] [place] [address] * (ABNORMAL) POC Activated Clotting Time, High Range (07/11/2025 11:34 AM [facility] [employer]) ACT >1,005(H) 87 - 138 sec Blood 07/11/2025 11:3 4 AM [facility] [employer] 07/11/2025 11:34 AM [facility] [employer] Bobby Diaz MD LAB BLOOD ORDERABLES Final R esult Performing Organization Address [facility] Co de Phone Number AMI EVANS [address] Department [employer] [place], [place] [id number] * (ABNORMAL) Platelet count (07/11/2025 11:20 AM [facility] [employer]) Plt 127(L) 150 - 400 K/cumm Blood 07/11/2025 11:2 0 AM [facility] [employer] 07/11/2025 11:25 AM [facility] [employer] Bobby Diaz MD LAB BLOOD ORDERABLES Final R esult Performing Organization Address [facility] Co de Phone Number AMI EVANS [address] [facility] [employer] [place], [place] [id number] * (ABNORMAL) POC Blood Gas and Chemistries, Arterial - (07/11/2025 11:04 AM [facility] [employer]) pH, Art POC 7.39 7.35 - 7.45 pCO2, Art POC 41 35 - 45 mmHg [facility]ER CH pO2, Art POC 311(H) 83 - 108 mmHg [facility]ER CH Na, POC 136 135 - 145 mmol/L [facility] CH K POC 6.3(C) 3.3 - 4.9 mmol/L C[facility]ER CH Comment: Interpretive Data This method is not able to assess for hemolysis, which may falsely increase potassium concentrations. If further testing is needed to evaluate this result, consider in-laboratory plasma potassium. Current Interpretive Data was last revised on 2022. Ionized Ca, POC 3.60(L) 4.50 - 5.10 mg/dL CERNER CH Glucose, POC 121 70 - 199 mg/dL [facility] CH Lactate POC 1.5 0.7 - 2.0 mmol/L [facility]ER CH O2Hb, Art POC 97.5(H) 90.0 - 95.0 % CERNER CH SO2 (loulou) arterial 100(H) 90 - 95 % [facility]ERNER CH Total CO2, Art POC 26 21 - 30 mmol/L C[facility]ER CH BE, art, POC -0.2 mmol/L [facility] CH Hct, POC 29.0(L) 41.4 - 51.6 % [facility]ER CH Total Hb, POC 9.7(L) 13.8 - 17.2 g/dL [facility]ER CH Blood 07/11/2025 11:0 4 AM [facility] [employer] 07/11/2025 11:04 AM [facility] [employer] Bobby Diaz MD LAB POCT ORDERABLES - DEVICE Final Result AMI EVANS [address] Department of Laboratories [place], [place] [phone] * (ABNORMAL) POC Activated Clotting Time, High Range (07/11/2025 11:02 AM [facility] [employer]) Pathologist [facility] ACT >1,005(H) 87 - 138 sec Blood 07/11/2025 11:0 2 AM [facility] 07/11/2025 11:02 AM [employer] [employer] Bobby Diaz MD LAB BLOOD ORDERABLES Final R esult Performing Organization Address City/[facility]/ZIP Co de Phone Number AMI EVANS [address] [place] [address] * (ABNORMAL) POC Blood Gas and Chemistries, Arterial - (07/11/2025 10:37 AM [facility] [employer]) pH, Art POC 7.38 7.35 - 7.45 pCO2, Art POC 46(H) 35 - 45 mmHg [facility] CH pO2, Art POC 415(H) 83 - 108 mmHg [facility] CH Na, POC 133(L) 135 - 145 mmol/L [facility] CH K POC 7.2(C) 3.3 - 4.9 mmol/L [facility]ER CH Comment: Interpretive Data This method is not able to assess for hemolysis, which may falsely increase potassium concentrations. If further testing is needed to evaluate this result, consider in-laboratory plasma potassium. Current Interpretive Data was last revised on 2022. Ionized Ca, POC 3.99(L) 4.50 - 5.10 mg/dL [facility]ER CH Glucose, POC 157 70 - 199 mg/dL [facility] CH Lactate POC 1.7 0.7 - 2.0 mmol/L [facility] CH O2Hb, Art POC 97.8(H) 90.0 - 95.0 % C[facility]ER CH SO2 (loulou) arterial 100(H) 90 - 95 % [facility]ER CH Total CO2, Art POC 29 21 - 30 mmol/L [facility] CH BE, art, POC 1.7 mmol/L [facility] CH Hct, POC 30.0(L) 41.4 - 51.6 % [facility]ER CH Total Hb, POC 10.1(L) 13.8 - 17.2 g/dL [facility] CH Blood 07/11/2025 10:3 7 AM [facility] [employer] 07/11/2025 10:37 AM [facility] [employer] Bobby Diaz MD LAB POCT ORDERABLES - DEVICE Final Result AMI EVANS [address] Department of [employer] [place], [place] [phone] * (ABNORMAL) POC Blood Gas and Chemistries, Arterial - (07/11/2025 10:25 AM [facility] [employer]) pH, Art POC 7.31(L) 7.35 - 7.45 pCO2, Art POC 43 35 - 45 mmHg [facility]ER CH pO2, Art POC 344(H) 83 - 108 mmHg [facility]ER CH Na, POC 131(L) 135 - 145 mmol/L [facility] CH K POC 5.6(H) 3.3 - 4.9 mmol/L [facility] CH Comment: Interpretive Data This method is not able to assess for hemolysis, which may falsely increase potassium concentrations. If further testing is needed to evaluate this result, consider in-laboratory plasma potassium. Current Interpretive Data was last revised on 2022. Ionized Ca, POC 4.07(L) 4.50 - 5.10 mg/dL [facility] CH Glucose, POC 167 70 - 199 mg/dL [facility] CH Lactate POC 1.7 0.7 - 2.0 mmol/L C[facility] CH O2Hb, Art POC 97.9(H) 90.0 - 95.0 % CERNER CH SO2 (loulou) arterial 100(H) 90 - 95 % [facility] CH Total CO2, Art POC 23 21 - 30 mmol/L [facility] CH BE, art, POC -4.4 mmol/L [facility] CH Hct, POC 31.0(L) 41.4 - 51.6 % [facility] CH Total Hb, POC 10.4(L) 13.8 - 17.2 g/dL [facility] CH Blood 07/11/2025 10:2 5 AM [facility] [employer] 07/11/2025 10:25 AM [facility] [employer] us Bobby Diaz MD LAB POCT ORDERABLES - DEVICE Final Result AMI EVANS [address] Department [place] [address] * (ABNORMAL) POC Activated Clotting Time, High Range (07/11/2025 10:23 AM [facility] [employer]) ACT >1,005(H) 87 - 138 sec Blood 07/11/2025 10:2 3 AM [facility] [employer] 07/11/2025 10:23 AM [facility] [employer] us Bobby Diaz MD LAB BLOOD ORDERABLES Final R esult AMI EVANS [address] Department [place] [address] * (ABNORMAL) POC Blood Gas and Chemistries, Arterial - (07/11/2025 9:51 AM [facility] [employer]) pH, Art POC 7.29(L) 7.35 - 7.45 pCO2, Art POC 39 35 - 45 mmHg [facility] CH pO2, Art POC 137(H) 83 - 108 mmHg [facility] CH Na, POC 134(L) 135 - 145 mmol/L [facility] CH K POC 6.5(C) 3.3 - 4.9 mmol/L C[facility]ER CH Comment: Interpretive Data This method is not able to assess for hemolysis, which may falsely increase potassium concentrations. If further testing is needed to evaluate this result, consider in-laboratory plasma potassium. Current Interpretive Data was last revised on 2022. Ionized Ca, POC 3.50(L) 4.50 - 5.10 mg/dL [facility] CH Glucose, POC 98 70 - 199 mg/dL [facility] CH Lactate POC 1.1 0.7 - 2.0 mmol/L [facility] CH O2Hb, Art POC 96.2(H) 90.0 - 95.0 % [facility] CH SO2 (loulou) arterial 99(H) 90 - 95 % C[facility]ER CH Total CO2, Art POC 20(L) 21 - 30 mmol/L [facility] CH BE, art, POC -7.3 mmol/L [facility] CH Hct, POC 44.0 41.4 - 51.6 % C[facility]ER CH Total Hb, POC 14.5 13.8 - 17.2 g/dL C[facility]ER CH Blood 07/11/2025 9:51 AM [facility] [employer] 07/11/2025 9:51 AM [facility] [employer] Bobby Diaz MD LAB POCT ORDERABLES - DEVICE Final Result AMI EVANS [address] Department [place] [address] * (ABNORMAL) POC Activated Clotting Time, High Range (07/11/2025 9:46 AM [facility] [employer]) ACT >1,005(H) 87 - 138 sec Blood 07/11/2025 9:46 AM [facility] 07/11/2025 9:46 AM [facility] [employer] us Bobby Diaz MD LAB [place]LOOD [place] [address] [address] Department [place] [address] * PULMONARY ARTERY CATH, OR AN CENTRAL LINE MULTI LUMEN (07/11/2025 8:25 AM [facility] [employer]) Narrative Abrahan Jon AA - 07/11/2025 8:25 AM [facility] [employer] Abrahan Jon AA 07/11/2025 8:25 AM Central Venous Line Patient location: OR Start time: 07/11/2025 8:08 AM Indication: central venous access and CVP monitoring Staff: Supervising provider: Elizabeth Herrera MD Placed by: AA: Abrahan Jon AA Procedure prep: Patient position: Trendelenburg. PPE: provider hat/mask, sterile gloves, sterile gown, provider hand hygiene and full body drape. Prep solution: chlorhexadine/alcohol was applied to area. Ultrasound Evaluation: Ultrasound was used prior to prep. Central line: Laterality: right Site: internal jugular Catheter type: multi-lumen access catheter (MAC) Catheter size: 9 Fr. Catheter length: 11.5 cm Additional catheter placed through introducer: double lumen infusion catheter (DLIC) Technique: anatomy identified with ultrasound, vein located with finder needle, Seldinger technique, wire threaded easily and wire removed intact Venous verification: pressure transduced Post insertion: all ports aspirated, all ports flushed easily, line sutured in place and occlusive dressing applied Chlorhexidine patch applied: yes Number of attempts: 1 PA catheter placement: PA catheter type: oximetric PA catheter size: 8 Fr PA catheter laterality: right PA catheter site: internal jugular Placement guided by: pressure tracing changes PA catheter depth 49 cmNo Assessment: Events: patient tolerated procedure well with no complications us Elizabeth Herrera MD ANESTHESIA ORDERABLES Final Resu lt * OR AN ELECTIVE ENDOTRACHEAL AIRWAY (07/11/2025 8:24 AM [facility] [employer]) Abrahan Calderon AA - 07/11/2025 8:24 AM [facility] [employer] Abrahan Jon AA 07/11/2025 8:25 AM Airway Patient location: OR Urgency: elective Date/time: 07/11/2025 8:01 AM Indications for airway management: anesthesia Difficult airway: no Staff: Supervising provider: Elizabeth Herrera MD Placed by: AA: Abrahan Jon AA Emergent airway documentation: Risks and benefits discussed: yes Consent obtained: yes Consent given by: patient Airway prep: Preoxygenated: yes Patient position: sniffing Mask difficulty assessment: 1 - vent by mask Spontaneous ventilation during airway: absent Sedation level during airway: GA Final airway details: Final airway type: endotracheal airway Tube type: ETT ETT size: 8.0 mm Cuffed: yes Technique used for successful ETT placement: video laryngoscopy Devices/Methods used in placement: stylet Insertion site: oral Blade type: Katiuska Video blade type: Cabrera Blade size: 4 Cormack-Lehane (video): grade I - full view of glottis Cuff inflated with: air ETT to lips: 22 cm Placement verified by: auscultation and CO2 detection Airway secured with: silk tape Number of attempts: 1 Additional comments: Atraumatic. Teeth as before. us Elizabeth Herrera MD ANESTHESIA ORDERABLES Final Resu lt * Arterial Line (07/11/2025 8:24 AM [facility] [employer]) Narrative Abrahan Jon AA - 07/11/2025 8:24 AM [facility] [employer] Abrahan Jon AA 07/11/2025 8:24 AM Arterial Line Patient location: pre-op holding Indication: continuous blood pressure monitoring and blood sampling needed Ultrasound assisted: yes Staff: Supervising provider: Elizabeth Herrera MD Placed by: AA: Abrahan Jon AA Procedure prep: Prep solution: chlorhexadine/alcohol Prep: provider hat/mask and sterile gloves Skin infiltrated with lidocaine 1%: yes Arterial line: Catheter size: 20 gauge Catheter length: 1 and 3/4 inch Catheter type: wire-guided catheter Seldinger technique: yes Laterality: right Site: radial artery Line secured: Tegaderm and tape Results: good waveform and good blood return Number of attempts: 1 Assessment: Events: patient tolerated procedure well with no complications us Elizabeth Herrera MD ANESTHESIA ORDERABLES Final Resu lt * (ABNORMAL) POC Blood Gas and Chemistries, Arterial - (07/11/2025 8:20 AM [facility] [employer]) pH, Art POC 7.37 7.35 - 7.45 pCO2, Art POC 40 35 - 45 mmHg [facility]ER CH pO2, Art POC 283(H) 83 - 108 mmHg CERNER CH Na, POC 134(L) 135 - 145 mmol/L [facility] CH K POC 4.4 3.3 - 4.9 mmol/L C[facility]ER CH Comment: Interpretive Data This method is not able to assess for hemolysis, which may falsely increase potassium concentrations. If further testing is needed to evaluate this result, consider in-laboratory plasma potassium. Current Interpretive Data was last revised on 2022. Ionized Ca, POC 4.57 4.50 - 5.10 mg/dL CERNER CH Glucose, POC 118 70 - 199 mg/dL [facility] CH Lactate POC 0.8 0.7 - 2.0 mmol/L C[facility]ER CH O2Hb, Art POC 97.4(H) 90.0 - 95.0 % CERNER CH SO2 (loulou) arterial 100(H) 90 - 95 % CERNER CH Total CO2, Art POC 24 21 - 30 mmol/L C[facility]ER CH BE, art, POC -2.0 mmol/L C[facility]ER CH Hct, POC 47.0 41.4 - 51.6 % CERNER CH Total Hb, POC 15.7 13.8 - 17.2 g/dL CERNER CH Blood 07/11/2025 8:20 AM [facility] [employer] 07/11/2025 8:20 AM [facility] [employer] us Bobby Diaz MD LAB POCT ORDERABLES - DEVICE Final Result [facility] [address] [place] [address] * POC Activated Clotting Time, High Range (07/11/2025 8:16 AM [facility]) ACT 126 87 - 138 sec Blood 07/11/2025 8:16 AM [employer] [employer] 07/11/2025 8:16 AM [facility] [employer] Bobby Diaz MD LAB BLOOD ORDERABLES Final R esult Performing Organization Address [facility] Co de Phone Number AMI EVANS [address] [place] [address] * Check Sample (07/11/2025 7:17 AM [facility]) Pathologist [facility] ABO Rh O Positive CH HCLL OTHER 07/11/2025 7:17 AM [employer] 07/11/2025 7:25 AM [facility] [employer] Bobby Diaz MD LAB BLOOD ORDERABLES Final R esult Performing Organization Address [facility] Co de Phone Number AMI EVANS [address] [address] [place] [address] CH * Potassium, whole blood (07/11/2025 7:16 AM [facility] [employer]) Pathologist [facility] Potassium, bld 4.4 3.3 - 4.9 mmol/L Comment: Interpretive Data This method is not able to assess for hemolysis, which may falsely increase potassium concentrations. If further testing is needed to evaluate this result, consider in-laboratory plasma potassium. Current Interpretive Data was last revised on 2022. Blood 07/11/2025 7:16 AM [facility] [employer] 07/11/2025 7:22 AM [facility] Jodee Frye CLIENT APPLICATION SUPPORT SPECIALIST LAB BLOOD ORDERABLES Final Res ult Performing Organization Address [facility] Co de Phone Number AMI EVANS [address] [place] [address] * POCT glucose (07/11/2025 6:59 AM [facility] [employer]) Glucose, POC 114 70 - 199 mg/dL Blood 07/11/2025 6:59 AM [facility] [employer] 07/11/2025 6:59 AM [facility] [employer] us Bobby Diaz MD LAB POCT ORDERABLES - DEVICE Final Result Performing Organization Address City/[facility]/ZIP Co de Phone Number AMI [address] Department [place] [address] * BRENDA Add-On For OR (07/11/2025 6:39 AM [facility] [employer]) BSA 2.06 m2 CONS SCIMAGE Narrative CONS SCIMAGE - 07/11/2025 6:39 AM [facility] [employer] Procedure Auto Finalized by Rule: BW CV BRENDA DURING CASE OR Please see the Anesthesiologist's Procedure Note for the results. us Elizabeth Herrera MD CV ECHO PROCEDURES Final Result Performing Organization Address [facility] Co de Phone Number CONS SCIMAGE * Prepare platelets: 2 Units (07/11/2025 5:49 AM [facility] [employer]) Pathologist [facility] Product code [id number] CERNER CH Unit Number [id number] H CERNER CH Product Blood Type APOS CERNER CH Dispense Status PRESUMED TRANSFUSED CERNER CH Product code [id number] Unit Number [id number] CERNER CH Product Blood Type OPOS CERNER CH Dispense Status RETURNED CERNER CH Blood Venous blood specimen / Unknown 07/11/2025 5:49 AM [facility] [employer] Narrative SONYANER CH - 07/11/2025 10:15 PM [facility] [employer] Specify Procedure:->CABG Are special requirements needed? (all products are leukoreduced)->No Date required:-20250711 PLT # of Units:-2-Units Reasons:-Hold for procedure (specify procedure)} us Lottie Degroot NP BLOOD BANK PRODUCT ORDERAB LES Final Result Performing Organization Address City/[facility] Co de Phone Number AMI EVANS [address] [place] [address] * Prepare RBC: 4 Units (07/11/2025 5:49 AM [facility] [employer]) [facility] Product code [id number] CERNER CH Unit Number [id number] 9-A CERNER CH Product Blood Type OPOS CERNER CH Dispense Status RETURNED CERNER CH Product code [id number] CERNER CH Unit Number [id number] 6-6 CERNER CH Product Blood Type OPOS CERNER CH Dispense Status RETURNED CERNER CH Product code [id number] CERNER CH Unit Number [id number] 9-9 CERNER CH Product Blood Type OPOS CERNER CH Dispense Status RETURNED CERNER CH Product code [id number] Unit Number [id number] 9-2 CERNER CH Product Blood Type OPOS CERNER CH Dispense Status RETURNED CERNER CH Blood 07/11/2025 5:49 AM [facility] [employer] Narrative CERNER CH - 07/12/2025 12:28 AM [facility] [employer] Specify Procedure:->CABG Are special requirements needed? (All products are leukoreduced and CMV- safe)- >No Date required:-20250711 LRRBC # of Vnzzo-6-Ziain Reasons:-Hold for procedure (specify procedure)} Lottie Degroot CLIENT APPLICATION SUPPORT SPECIALIST BLOOD BANK PRODUCT ORDERAB LES Final Result AMI EVANS [address] [place] [address] * eGFR (07/08/2025 10:03 AM [facility] [employer]) [facility] eGFR >90 >=60 mL/min/1. 73 m2 Comment: Interpretive Data Reference Interval Normal >/= 90 mL/min/1.73m2 Mildly decreased* 60 - 89 mL/min/1.73m2 Mildly to moderately decreased 45 - 59 mL/min/1.73m2 Moderately to severely decreased 30 - 44 mL/min/1.73m2 Severely decreased 15 - 29 mL/min/1.73m2 Kidney Failure < 15 mL/min/1.73m2 *Relative to young adult level Estimated glomerular filtration rate is determined by the 2020 CKD-EPI equation recommended by the National Kidney Foundation (A Unifying Approach to GFR Estimation: Recommendations of the NKF-ASK Task Force on Reassessing the Inclusion of Race in Diagnosing Kidney Disease, JASN 2020). The CKD-EPI equation should not be used for patients with unstable renal function and has not been validated in children and those over 70. Current interpretive data was last reviewed 2021. Blood 07/08/2025 10:0 3 AM [facility] [employer] 07/08/2025 10:33 AM [facility] [employer] us Bobby Diaz MD LAB BLOOD ORDERABLES Final R esult [facility] [address] Department [place] [address] * Urinalysis reflex to microscopic and culture Urine, clean voided (07/08/2025 10:03 AM [facility] [employer]) Color, ur Yellow Yellow Clarity, ur Clear Clear CERNER CH Specific gravity, ur 1.020 1.003 - 1.030 CERNER CH pH, urine 5.5 CERNER CH Comment: Interpretive Data U rine pH is affected by diet, medications, systemic acid-base disturbances, and renal tubular function. pH may affect urinary stone formation. For example, urine pH below 6.0 may help reduce the tendency for calcium phosphate stones and pH greater than 6.0 may reduce the tendency for uric acid stone formation. Source: [facility] [employer] Current Interpretive Data was last revised on 2017 Protein, ur ql Negative Negative CERNER CH Glucose, ur ql Negative Negative CERNER CH Ketones, ur Negative Negative CERNER CH Bilirubin, ur Negative Negative CERNER CH Blood, ur Negative Negative CERNER CH Urobilinogen, ur <2.0 <2.0 mg/dL CERNER CH Nitrite, ur Negative Negative CERNER CH Leukocyte esterase, ur Negative Negative CERNER CH UA reflex comment Reflex conditions for microscopic UA and culture not met. CERNER CH Urine, clean voided 07/08/2025 10:03 AM [facility] [employer] [facility] 07/08/2025 10:47 AM [facility] [employer] us Bobby Diaz MD LAB MICROBIOLOGY - GENERAL O RDERABLES Final Result Performing Organization Address [facility] Co de Phone Number AMI EVANS [address] [facility] [place] [address] * aPTT (07/08/2025 10:03 AM [facility] LIFE) aPTT 33 26 - 38 sec Comment: Interpretive Data Heparin therapeutic range: 66.0 - 100.0 seconds. Range based on correlation with therapeutic heparin activity range of 0.3 - 0.7 Units/mL. Blood 07/08/2025 10:0 3 AM [facility] 07/08/2025 10:33 AM [facility] Bobby Diaz MD LAB BLOOD ORDERABLES Final R esult Performing Organization Address [facility] de Phone Number SONYAELIANA EVANS [address] [facility] [place] [address] * Protime-INR (07/08/2025 10:03 AM [facility] [employer]) PT 13.4 10.2 - 13.5 sec INR 1.19 0.90 - 1.20 AMI Comment: Interpretive data Oral anticoagulant therapeutic ranges: Venous thromboembolism prophylaxis or treatment: 2.0-3.0 CARDIOLOGY Standard range: 2.0-3.0 High-intensity range: 2.5-3.5 Refer to indication-specific guidelines for appropriate target ranges for prosthetic heart valve replacement. Current interpretive data was last revised on 2019. Blood 07/08/2025 10:0 3 AM [facility] [employer] 07/08/2025 10:33 AM [facility] [employer] us Bobby Diaz MD LAB BLOOD ORDERABLES Final R esult Performing Organization Address [facility] Co de Phone Number AMI EVANS [address] [place] [address] * CBC without differential (07/08/2025 10:03 AM [facility] [employer]) WBC 7.28 3.80 - 9.90 K/cumm Hgb 16.0 13.0 - 17.5 g/dL [facility] Hct 46.0 38.9 - 50.3 % [facility] Plt 219 150 - 400 K/cumm [facility] MPV 10.3 9.1 - 12.3 fL [facility] RBC 5.23 4.30 - 5.80 M/cumm [facility] MCV 88.0 81.3 - 96.4 fL [facility] CH MCH 30.6 27.1 - 33.3 pg [facility] MCHC 34.8 32.3 - 35.7 g/dL [facility] RDW CV 12.0 11.1 - 14.9 % [facility] RDW SD 38.7 35.7 - 48.1 fL [facility] NRBC abs 0.00 0.00 - 0.01 K/cumm [facility] Blood 07/08/2025 10:0 3 AM [employer] 07/08/2025 10:33 AM [facility] [employer] Bobby Diaz MD LAB BLOOD ORDERABLES Final R esult AMI CRISTINA [address] [place] [address] * Type and screen (07/08/2025 10:03 AM [facility] [employer]) Pathologist [facility], indirect Negative ABO Rh O Positive [facility] Blood 07/08/2025 10:0 3 AM [employer] [employer] 07/08/2025 10:34 AM [facility] Narrative [facility] - 07/08/2025 12:21 PM [facility] [employer] Has the patient had Daratumumab or Isatuximab in the past 6 months?->Unknown Bobby Diaz MD LAB BLOOD BANK TEST ORDERABL ES Final Result AMI EVANS [address] [place] [address] * (ABNORMAL) Hemoglobin A1c (07/08/2025 10:03 AM [facility]) Hgb A1C 6.7(H) 4.0 - 5.6 % Estimated Average Glucose 146 mg/dL [facility] Comment: The ADA recommends reporting an estimated Average Glucose (eAG) with all Hemoglobin A1c results using the equation derived from a study of 507 normal and diabetic adults. Minority populations were underrepresented and children were not included. (Diabetes Care 31:3531-2702, 2008). The eAG is not equivalent to a fasting glucose. Blood 07/08/2025 10:0 3 AM [facility] [employer] 07/08/2025 11:31 AM [employer] us Jodee Frye NP LAB BLOOD ORDERABLES Final Res ult [facility] [address] Department [place] [address] * (ABNORMAL) Basic metabolic panel (07/08/2025 10:03 AM [facility]) Sodium 137 135 - 145 mmol/L Potassium, pl 4.6 3.3 - 4.9 mmol/L [facility] Chloride 105 97 - 110 mmol/L [facility] CO2 19(L) 22 - 32 mmol/L [facility] Anion gap 13 2 - 15 mmol/L [facility] BUN 15 6 - 25 mg/dL [facility] Creatinine 0.98 0.80 - 1.30 mg/dL [facility] Glucose 105 70 - 199 mg/dL [facility] Comment: Interpretive Data Fasting glucose >/= 126 mg/dl is diagnostic for diabetes. Fasting is defined as no caloric intake for at least 8 hours. Fasting glucose between 100 mg/dl to 125 mg/dl is diagnostic of prediabetes. In a patient with classic symptoms of hyperglycemia or hyperglycemic crisis, a random glucose >/= 200 mg/dl is diagnostic for diabetes. In the absence of unequivocal hyperglycemia, results should be confirmed by repeat testing. The classification and Diagnosis of Diabetes Diabetes Care 202; 46: S19-S40. Current interpretive data was last revised 2022. Calcium 9.1 8.5 - 10.3 mg/dL [facility] Blood 07/08/2025 10:0 3 AM [facility] [employer] 07/08/2025 10:33 AM [employer] [employer] us Bobby Diaz MD LAB BLOOD ORDERABLES Final R esult Performing Organization Address [facility] de Phone Number AMI EVANS [address] [place] [address] * Troponin T high-sensitivity 2-hour (06/28/2025 11:42 PM CDT) Trop T hs 22 <=22 ng/L Comment: Slight hemolysis may result in decreased troponin measurement. Consider recollection. Interpretive Data For further hscTnT resources including the diagnostic algorithm and an aid in interpretation, copy and paste this link: https://nrl.testcatalog.org/show/hsTrop Current Interpretive Data last revised 2020. Trop T hs delta 2 ng/L [facility] Trop T hs interp Insignificant [facility] Blood 06/28/2025 11:4 2 PM CDT 06/28/2025 11:45 PM CDT Calderon Fulton MD LAB BLOOD ORDERABLES Fi nal Result Performing Organization Address [facility] de Phone Number AMI EVANS [address] [address] [facility] [place] [address] * D-dimer, quantitative (06/28/2025 10:59 PM CDT) D-Dimer 434 <=499 ng/mL FEU Comment: Interpretive data FDA approved the D-dimer, in conjunction with a low or moderate pretest probability score, to exclude venous thromboembolic events (VTE) (PE and DVT) in outpatients when the D-dimer result is < 500 ng/ml FEU. Evidence supports using an age-adjusted D-dimer cut-off for outpatients older than 50 (age x 10) to improve specificity without sacrificing sensitivity. Example: age 68, VTE cut-off 680 ng/ml FEU. References; Schouten HT et al. Brit Med J. 2013;346:f2492. Promise et al. Annals Int Med. 2015;163:701-11. Current interpretive data was last revised on 2019. Blood 06/28/2025 10:5 9 PM CDT 06/28/2025 11:03 PM CDT us Ashwin Guevara MD LAB BLOOD ORDERABLES Fin al Result Performing Organization Address City/State/ZIP Co nv Phone Number AMI [phone] [facility] Department [place] [address] * XR Chest 1 Vw Portable (If patient hemodynamically UNstable or UNable to ambulate) (06/28/2025 9:59PM CDT) Anatomical Region Laterality Modality Body, Chest N/A Computed Radiogr aphy 06/29/2025 10:5 0 AM CDT Impressions 06/29/2025 10:50 AM CDT No active disease. Electronically signed by: Khang Doherty M.D. Narrative 06/29/2025 10:50 AM CDT EXAMINATION: XR CHEST 1 VIEW HISTORY: The patient is a 55-year-old male who presents with chest pain. TECHNIQUE: AP portable view of the chest. FINDINGS: Lungs clear. Cardiovascular structures unremarkable. Procedure Note Khang Doherty MD - 06/29/2025 EXAMINATION: XR CHEST 1 VIEW HISTORY: The patient is a 55-year-old male who presents with chest pain. TECHNIQUE: AP portable view of the chest. FINDINGS: Lungs clear. Cardiovascular structures unremarkable. IMPRESSION: No active disease. Electronically signed by: Khang Doherty M.D. us Ashwin Guevara MD IMG XR PROCEDURES Final Result * aPTT (06/28/2025 9:58 PM CDT) aPTT 33 26 - 38 sec Comment: Interpretive Data Heparin therapeutic range: 66.0 - 100.0 seconds. Range based on correlation with therapeutic heparin activity range of 0.3 - 0.7 Units/mL. Current interpretive data was last revised on 2023. Blood 06/28/2025 9:58 PM CDT 06/28/2025 10:06 PM CDT Ashwin Guevara MD LAB BLOOD ORDERABLES Fin al Result Performing Organization Address City/[facility]/ZIP Co de Phone Number AMI EVANS [address] Department of Laboratories [place], [place] [id number] * Troponin T high-sensitivity series (baseline, 2hr, 4hr, 6hr) (06/28/2025 9:57 PM CDT) Trop T hs 20 <=22 ng/L Comment: Interpretive Data For further hscTnT resources including the diagnostic algorithm and an aid in interpretation, copy and paste this link: https://nrl.testcatalog.org/show/hsTrop Current Interpretive Data last revised 2020. Blood 06/28/2025 9:57 PM CDT 06/28/2025 10:05 PM CDT Ashwin Guevara MD LAB BLOOD ORDERABLES Juan David estefanía Result - Final Performing Organization Address City/[facility]/ZIP Co de Phone Number AMI EVANS [address] Department of Laboratories [place], [place] [id number] * eGFR (06/28/2025 9:57 PM CDT) eGFR 70 >=60 mL/min/1. 73 m2 Comment: Interpretive Data Reference Interval Normal >/= 90 mL/min/1.73m2 Mildly decreased* 60 - 89 mL/min/1.73m2 Mildly to moderately decreased 45 - 59 mL/min/1.73m2 Moderately to severely decreased 30 - 44 mL/min/1.73m2 Severely decreased 15 - 29 mL/min/1.73m2 Kidney Failure < 15 mL/min/1.73m2 *Relative to young adult level Estimated glomerular filtration rate is determined by the 2020 CKD-EPI equation recommended by the National Kidney Foundation (A Unifying Approach to GFR Estimation: Recommendations of the NKF-ASK Task Force on Reassessing the Inclusion of Race in Diagnosing Kidney Disease, RUBIOSN 2020). The CKD-EPI equation should not be used for patients with unstable renal function and has not been validated in children and those over 70. Current interpretive data was last reviewed 2021. Blood 06/28/2025 9:57 PM CDT 06/28/2025 10:05 PM CDT us Calderon Fulton MD LAB BLOOD ORDERABLES nal Result [facility] [address] [address] Department [place] [address] * (ABNORMAL) Differential, auto (06/28/2025 9:57 PM CDT) Neutrophil abs 5.31 1.50 - 6.50 K/cumm Imm gran abs 0.03 0.00 - 0.10 K/cumm [facility] Lymphocyte abs 3.67(H) 0.80 - 3.30 K/cumm [facility] Monocyte abs 0.87(H) 0.20 - 0.80 K/cumm [facility] Eosinophil abs 0.16 0.00 - 0.50 K/cumm [facility] Basophil abs 0.02 0.00 - 0.10 K/cumm [facility] Neutrophil pct 52.8 % [facility] Comment: Interpretive Data Percent cell count reference ranges are not reported, since discordance with absolute values may lead to misinterpretation of CBC data. Current Interpretive Data was last revised on 2017. Imm gran pct 0.3 % [facility] Comment: Interpretive Data Percent cell count reference ranges are not reported, since discordance with absolute values may lead to misinterpretation of CBC data. Current Interpretive Data was last revised on 2017. Lymphocyte pct 36.5 % [facility] Comment: Interpretive Data Percent cell count reference ranges are not reported, since discordance with absolute values may lead to misinterpretation of CBC data. Current Interpretive Data was last revised on 2017. Monocyte pct 8.6 % [facility] Comment: Interpretive Data Percent cell count reference ranges are not reported, since discordance with absolute values may lead to misinterpretation of CBC data. Current Interpretive Data was last revised on 2017. Eosinophil pct 1.6 % [facility] Comment: Interpretive Data Percent cell count reference ranges are not reported, since discordance with absolute values may lead to misinterpretation of CBC data. Current Interpretive Data was last revised on 2017. Basophil pct 0.2 % [facility] Comment: Interpretive Data Percent cell count reference ranges are not reported, since discordance with absolute values may lead to misinterpretation of CBC data. Current Interpretive Data was last revised on 2017. Blood 06/28/2025 9:57 PM CDT 06/28/2025 10:06 PM CDT us Calderon Fulton MD LAB BLOOD ORDERABLES Fi nal Result [facility] [address] [address] Department [place] [address] * (ABNORMAL) CBC with auto differential (06/28/2025 9:57 PM CDT) WBC 10.06(H) 3.80 - 9.90 K/cumm Hgb 16.8 13.0 - 17.5 g/dL [facility] Hct 49.0 38.9 - 50.3 % [facility] Plt 239 150 - 400 K/cumm [facility] MPV 10.8 9.1 - 12.3 fL [facility] RBC 5.53 4.30 - 5.80 M/cumm [facility] MCV 88.6 81.3 - 96.4 fL [facility] MCH 30.4 27.1 - 33.3 pg [facility] MCHC 34.3 32.3 - 35.7 g/dL [facility] RDW CV 12.0 11.1 - 14.9 % [facility] RDW SD 39.1 35.7 - 48.1 fL [facility] NRBC abs 0.00 0.00 - 0.01 K/cumm [facility] Blood Venous blood specimen / Unknown 06/28/2025 9:57 PM CDT 06/28/2025 10:06 PM CDT us Ashwin Guevara MD LAB BLOOD ORDERABLES Fin al Result [facility] [address] [address] Department [place] [address] * (ABNORMAL) Comprehensive metabolic panel (06/28/2025 9:57 PM CDT) Sodium 139 135 - 145 mmol/L Potassium, pl 4.4 3.3 - 4.9 mmol/L [facility] Comment:Hemolysis present. R esults may be affected. Chloride 104 97 - 110 mmol/L [facility] CO2 23 22 - 32 mmol/L [facility] Anion gap 12 2 - 15 mmol/L [facility] BUN 16 6 - 25 mg/dL [facility] Creatinine 1.22 0.80 - 1.30 mg/dL [facility] Glucose 94 70 - 199 mg/dL [facility] Comment: Interpretive Data Fasting glucose >/= 126 mg/dl is diagnostic for diabetes. Fasting is defined as no caloric intake for at least 8 hours. Fasting glucose between 100 mg/dl to 125 mg/dl is diagnostic of prediabetes. In a patient with classic symptoms of hyperglycemia or hyperglycemic crisis, a random glucose >/= 200 mg/dl is diagnostic for diabetes. In the absence of unequivocal hyperglycemia, results should be confirmed by repeat testing. The classification and Diagnosis of Diabetes Diabetes Care 202; 46: S19-S40. Current interpretive data was last revised 2022. Calcium 9.3 8.5 - 10.3 mg/dL [facility] Bilirubin, total 0.5 0.1 - 1.2 mg/dL [facility] Protein, pl 7.5 6.5 - 8.5 g/dL [facility] Albumin 4.5 3.5 - 5.0 g/dL [facility] Alk phos 133(H) 40 - 130 Units/L [facility] ALT 74(H) 7 - 55 Units/L [facility] AST 48 10 - 50 Units/L [facility] Comment:Hemolysis present. R esults may be affected. Blood 06/28/2025 9:57 PM CDT 06/28/2025 10:05 PM CDT Ashwin Guevara MD LAB BLOOD ORDERABLES Fin al Result AMI EVANS [address] Department [place] [address] * ECG 12 lead (06/28/2025 9:53 PM CDT) 06/28/2025 9:53 PM CDT Narrative [facility] - 06/30/2025 2:08 PM [employer] [employer] Vent Rate: 86 bpm RR Interval: 696 msec OR Interval: 179 msec QRS Duration: 141 msec QT Interval: 381 msec QTC Interval: 424 msec P-R-T [place]: 65 - -68 - 100 degrees IMPRESSION: SINUS RHYTHM LEFT AXIS DEVIATION [QRS AXIS < -30] INTRAVENTRICULAR CONDUCTION DELAY [130+ ms QRS DURATION] ABNORMAL ECG Electronically Signed By: Joao Zamora MD Ashwin Guevara MD ECG ORDERABLES Final Re sult Performing Organization Address [facility] Co de Phone Number [employer] [facility] * LEFT HEART CATHETERIZATION WITH CORONARY ANGIOGRAPHY AND WITH AND WITHOUT LEFT VENTRICULOGRAM, CORONARY OCT, 1ST VESSEL (06/20/2025 1:35 PM CDT) Anatomical Region Laterality Modality X-Ray Angiograph y Addenda Addendum by Larry Cheung MD on 06/20/2025 2:05 PM CDT CARDIAC CATHETERIZATION AND INTERVENTION REPORT DATE OF PROCEDURE: 06/20/25 INDICATION FOR PROCEDURE: CAD, chest pain, dyspnea on exertion BRIEF CLINICAL HISTORY: Meg Montes is a 55 y.o. male with known CAD (chronic total occlusion mid RCA with dmyj-jd-gojzg collaterals from 09/08/2018 cardiac catheterization performed at [facility]), hypertension, type 2 diabetes mellitus, history of tobacco abuse. Patient was referred by Dr. Fajardo for cardiac catheterization to re-evaluate coronary anatomy in the setting of worsening chest discomfort and dyspnea on exertion. Benefits and risks of the procedure were discussed with the patient in depth, and informed consent was taken prior to the procedure. Risks of the procedure include but are not limited to vascular complications like groin hematoma, retroperitoneal bleed, vessel perforation; periprocedural SC, cardiac arrhythmias, stroke, contrast induced nephropathy, and . After discussing all the benefits, risks and alternatives, patient was willing to proceed with the procedure. PROCEDURES PERFORMED: Ultrasound-guided right radial arterial access Left heart catheterization-selective left and right coronary angiogram, left ventriculogram, LV pressure measurement, hemodynamic assessment Percutaneous coronary intervention-intravascular ultrasound (IVUS) of left main and left atrial descending artery Moderate sedation-CPT code 84442 and beyond MODERATE SEDATION: Midazolam 3 mg , Fentanyl 75 mcg, start time 1242 stop time 1335, total direct ghsk-of-rtmc monitoring of conscious sedation 53 minutes (CPT 00918) TRAINED OBSERVER: Klaudia Sue RN was trained observer for moderate sedation. ACCESS SITE: Right radial artery PROCEDURE: After obtaining informed consent, patient was brought to the slabbing machine operator and prepped and draped in the usual sterile manner. Time-out and immediate reassessment of the patient was performed. After local anesthesia with lidocaine, right radial artery access was taken with micropuncture needle under ultrasound guidance followed by insertion of a 6 Maori sheath. 2.5 mg of verapamil and 200 mcg of nitroglycerin was given through the arterial sheath; and 5000 units of heparin IV for the diagnostic portion of the procedure. Selective left and right coronary angiography was performed using 5 F JL4 and 5F JR4 catheters respectively. Orthogonal views were taken. Next, 5 F pigtail catheter was advanced into the left ventricular cavity over 0.035 inch wire, and LV pressure measurement followed by left ventriculogram was performed. The catheter was flushed, and gradient across the aortic valve was measured using pullback technique. Estimated blood loss was minimal. All specimens removed. The angiographic and other findings, and details of intervention are given below. FINDINGS: LEFT MAIN CORONARY: Medium caliber, short vessel with mild diffuse plaque. LEFT ANTERIOR DESCENDING ARTERY: Medium to large caliber vessel, tapers distally and reaches LV apex. There is about 50-60% stenosis at the ostium and about 50-70% stenosis in the proximal-mid segment of the origin of the septal training and quality manager. Mild diffuse plaque is seen in the mid LAD. Major diagonal branch which arises distal to the LAD stenosis is a medium caliber vessel without significant stenosis. LEFT CIRCUMFLEX ARTERY: Large caliber vessel, gives rise to large caliber OM1 branch and medium caliber OM2 branch. Kzjy-ql-beutx collaterals are seen which supply the terminal branches of the RCA. RIGHT CORONARY ARTERY: Medium caliber vessel. There is high-grade eccentric stenosis in the ostial-proximal segment. Chronic total occlusion in the mid segment just distal to the RV marginal branch. Distal RCA and terminal branches are filled with kiah-to-djxds collaterals. LEFT VENTRICULOGRAM: Preserved LV systolic function, ejection fraction about 60%. LVEDP elevated at 25 mmHg. HEMODYNAMIC ASSESSMENT: Opening pressure 110/91 mmHg, closing pressure 137/98 mmHg, LVEDP elevated at 25 mmHg. No significant gradient across aortic valve on the full back of pigtail catheter. INTERVENTION REPORT: Patient's coronary angiogram showed stenosis at the ostium and proximal-mid segment of LAD. We proceeded with further anatomical assessment using IVUS. Left main coronary artery ostium was selectively engaged using 6 Maori q.4 guide catheter. Bivalirudin was used for procedural anticoagulation. A 0.014 luge wire was advanced in the left main and stenosis in the LAD was crossed. IVUS was performed using [employer] [place] eye [place] catheter. The catheter was advanced in the left main and into the proximal LAD. Due to the tortuosity and calcification in the mid segment of the urgent of the septal training and quality manager, the catheter could not be advanced further. IVUS assessment was performed on manual pullback. Final angiogram after removal of the wire showed preserved flow in the left coronary system. Diffuse calcific stenosis was seen in the ostial and proximal-mid segment of the LAD. Minimal luminal diameter 2.2 x 2.5; minimal luminal area 3.7 cm2. Ostium was measured at 2.2 x 2.5 mm with MLA 4 millimeters squared. Radial band was applied for local hemostasis after the procedure. Patient tolerated procedure well without any immediate procedural complications. CONCLUSIONS: CAD- A) 50-60% stenosis at the ostium and 50-70% stenosis in the proximal-mid segment at the origin of the septal training and quality manager with difficulty in advancing the IVUS catheter beyond the stenosis (minimal luminal area 3.7 mm2) B) high-grade eccentric stenosis ostial-proximal RCA; chronic total occlusion of mid RCA distal to the RV marginal branch with collateral filling of distal RCA and RCA branches from gtbc-ck-onrdp collaterals. Preserved LV systolic function, ejection fraction about 60%, LVEDP elevated at 25 mmHg. PLAN/RECOMMENDATIONS: Patient has CAD involving two major epicardial vessels- LAD and RCA with chronic total occlusion of mid RCA. He will be referred to CT surgery for consideration for surgical revascularization with potential targets for CABG including LAD, diagonal branch and distal RCA. Optimal medical treatment including antiplatelet, high-intensity statin; and antianginals as needed. Plan discussed with the patient and his family and they are in agreement. Voice recognition software was used to complete this document, therefore, cover making machine operator variances may occur. Larry Cheung MD, [facility] 06/20/25 Larry Cheung MD CV CARDIAC CATH PROCEDURES Edite d Result - Final * eGFR (06/20/2025 9:45 AM CDT) eGFR 73 >=60 mL/min/1. 73 m2 Comment: Interpretive Data Reference Interval Normal >/= 90 mL/min/1.73m2 Mildly decreased* 60 - 89 mL/min/1.73m2 Mildly to moderately decreased 45 - 59 mL/min/1.73m2 Moderately to severely decreased 30 - 44 mL/min/1.73m2 Severely decreased 15 - 29 mL/min/1.73m2 Kidney Failure < 15 mL/min/1.73m2 *Relative to young adult level Estimated glomerular filtration rate is determined by the 2020 CKD-EPI equation recommended by the National Kidney Foundation (A Unifying Approach to GFR Estimation: Recommendations of the NKF-ASK Task Force on Reassessing the Inclusion of Race in Diagnosing Kidney Disease, JASN 202). The CKD-EPI equation should not be used for patients with unstable renal function and has not been validated in children and those over 70. Current interpretive data was last reviewed 2021. Blood 06/20/2025 9:45 AM CDT 06/20/2025 10:04 AM CDT us Larry Cheung MD LAB BLOOD ORDERABLES Final Resul t AMI EVANS [address] [place] [address] * Differential, auto (06/20/2025 9:45 AM CDT) Neutrophil abs 4.88 1.50 - 6.50 K/cumm Imm gran abs 0.02 0.00 - 0.10 K/cumm [facility] Lymphocyte abs 2.27 0.80 - 3.30 K/cumm [facility] Monocyte abs 0.58 0.20 - 0.80 K/cumm [facility] Eosinophil abs 0.07 0.00 - 0.50 K/cumm [facility] Basophil abs 0.02 0.00 - 0.10 K/cumm [facility] Neutrophil pct 62.1 % [facility] Comment: Interpretive Data Percent cell count reference ranges are not reported, since discordance with absolute values may lead to misinterpretation of CBC data. Current Interpretive Data was last revised on 2017. Imm gran pct 0.3 % [facility] Comment: Interpretive Data Percent cell count reference ranges are not reported, since discordance with absolute values may lead to misinterpretation of CBC data. Current Interpretive Data was last revised on 2017. Lymphocyte pct 29.0 % [facility] Comment: Interpretive Data Percent cell count reference ranges are not reported, since discordance with absolute values may lead to misinterpretation of CBC data. Current Interpretive Data was last revised on 2017. Monocyte pct 7.4 % [facility] Comment: Interpretive Data Percent cell count reference ranges are not reported, since discordance with absolute values may lead to misinterpretation of CBC data. Current Interpretive Data was last revised on 2017. Eosinophil pct 0.9 % [facility] Comment: Interpretive Data Percent cell count reference ranges are not reported, since discordance with absolute values may lead to misinterpretation of CBC data. Current Interpretive Data was last revised on 2017. Basophil pct 0.3 % [facility] Comment: Interpretive Data Percent cell count reference ranges are not reported, since discordance with absolute values may lead to misinterpretation of CBC data. Current Interpretive Data was last revised on 2017. Blood 06/20/2025 9:45 AM CDT 06/20/2025 10:04 AM CDT us Larry Cheung MD LAB BLOOD ORDERABLES Final Resul t [facility] [address] Department [place] [address] * CBC with auto differential (06/20/2025 9:45 AM CDT) [facility] WBC 7.84 3.80 - 9.90 K/cumm Hgb 16.6 13.0 - 17.5 g/dL [facility] Hct 49.1 38.9 - 50.3 % [facility] Plt 243 150 - 400 K/cumm [facility] MPV 10.8 9.1 - 12.3 fL [facility] RBC 5.46 4.30 - 5.80 M/cumm [facility] MCV 89.9 81.3 - 96.4 fL [facility] MCH 30.4 27.1 - 33.3 pg [facility] MCHC 33.8 32.3 - 35.7 g/dL [facility] RDW CV 12.1 11.1 - 14.9 % [facility] RDW SD 39.7 35.7 - 48.1 fL [facility] NRBC abs 0.00 0.00 - 0.01 K/cumm [facility] Blood 06/20/2025 9:45 AM CDT 06/20/2025 10:04 AM CDT us Larry Cheung MD LAB BLOOD ORDERABLES Final Resul t [facility] [address] Department [place] [address] * Basic metabolic panel (06/20/2025 9:45 AM CDT) [facility] Sodium 140 135 - 145 mmol/L Potassium, pl 4.5 3.3 - 4.9 mmol/L [facility] Chloride 107 97 - 110 mmol/L [facility] CO2 22 22 - 32 mmol/L [facility] Anion gap 11 2 - 15 mmol/L [facility] BUN 20 6 - 25 mg/dL [facility] Creatinine 1.19 0.80 - 1.30 mg/dL [facility] Glucose 122 70 - 199 mg/dL [facility] Comment: Interpretive Data Fasting glucose >/= 126 mg/dl is diagnostic for diabetes. Fasting is defined as no caloric intake for at least 8 hours. Fasting glucose between 100 mg/dl to 125 mg/dl is diagnostic of prediabetes. In a patient with classic symptoms of hyperglycemia or hyperglycemic crisis, a random glucose >/= 200 mg/dl is diagnostic for diabetes. In the absence of unequivocal hyperglycemia, results should be confirmed by repeat testing. The classification and Diagnosis of Diabetes Diabetes Care 2021; 46: S19-S40. Current interpretive data was last revised 2022. Calcium 9.2 8.5 - 10.3 mg/dL [facility] Blood 06/20/2025 9:45 AM CDT 06/20/2025 10:04 AM CDT Larry Cheung MD LAB BLOOD ORDERABLES Final Resul t Performing Organization Address [facility] Co de Phone Number [facility] [address] [place] [address] * POCT glucose (06/20/2025 9:34 AM CDT) Pathologist [facility] Glucose, POC 105 70 - 199 mg/dL Blood 06/20/2025 9:34 AM CDT 06/20/2025 9:34 AM CDT Result [facility] Larry Cheung MD LAB POCT ORDERABLES - DEVICE Fin al Result Performing Organization Address [facility] de Phone Number [facility] [address] [place] [address] * TRANSTHORACIC ECHO (TTE) COMPLETE W DOPPLER/CF WO CONTRAST (06/13/2025 9:12 AM CDT) Estimated EF 50 % CONS SCIMAGE EF Mod BP 51 % CONS SCIMAGE Anatomical Region Laterality Modality Ultrasound 06/13/2025 8:23 AM CDT Narrative 06/13/2025 12:22 PM CDT [facility] [address], [place] [address] [address], [place] [address] P:[phone] P:[phone] Echocardiographic Report Patient Name: MEG MONTES D : 1970 Study Date: 06/13/2025 8:23:00 AM Gender: M Touch Up Worker: Diana Beauchamp)(ND), [facility] Location: [facility] Provider: ANTONIO FAJARDO Height(Cm): 173 BSA: 2.12 Weight(Kg): 93.9 Heart Rate: 99 BP: 100 / 60 Quality: Good Order Provider: ANTONIO FAJARDO PROCEDURES: Echocardiographic Report: Transthoracic echocardiogram with complete 2D, M-Mode, and color Doppler examination. With Strain Analysis. Definity/Optison could not be used due to: unable to obtain IV access. INDICATIONS: I44.7 Left bundle-branch block, unspecified and I42.8 Other cardiomyopathies. MEASUREMENTS: 2D/MM Value Range Doppler Value Range EF Mod BP 51 % [ 52 - 72 ] RICK Vmax 2.25 cm2 [ 2.00 - 4.00 ] Estimated EF 50 % AV Mean PG 4 mmHg LV GLS -12.28 % AV Peak Karl 1.36 m/s [ 1.00 - 1.70 ] LVIDd 2D 4.46 cm [ 4.20 - 5.80 ] AV Peak PG 7 mmHg LVIDs 2D 3.35 cm [ 2.50 - 4.00 ] AV VTI 22.19 cm LVPWd 2D 1.18 cm [ 0.60 - 1.00 ] LVOT Diam 1.96 cm [ 1.70 - 2.10 ] IVSd 2D 1.19 cm [ 0.60 - 1.00 ] LVOT Peak Karl 1.02 m/s [ 0.70 - 1.10 ] AoR Diam 2D 3.47 cm [ 3.10 - 3.70 ] LVOT VTI 16.22 cm LA Volume 22.84 ml [ 18.00 - 58.00 ] MV E Peak Karl 0.62 m/s [ 0.60 - 1.30 ] LA Volume Index 11 cc/m2 [ 16 - 28 ] MV A Peak Karl 1.14 m/s [ 1.00 - 1.20 ] RA Volume 13.85 ml MV Decel Time 322 msec [ 104 - 258 ] PV Peak Karl 0.96 m/s [ 0.40 - 0.80 ] RV S` 11.89 mmHg Lateral E` 0.07 m/s [ 0.10 - 0.15 ] Septal E` 0.04 m/s [ 0.08 - 0.15 ] E` 0.05 m/s E/E` 12 Tapse 1.68 cm [ 1.71 - 5.00 ] 2D/MM Value Range Doppler Value Range - FINDINGS: Interpretation Site: Exam was interpreted at [facility]. Left Ventricle: Normal left ventricular size. Moderate concentric left ventricular hypertrophy. Left ventricular systolic function at the lower limit of normal. Paradoxical septal motion consistent with IVCD or bundle branch block. Impaired diastolic relaxation Grade I. Ejection fraction is measured at 51 %. Ejection Fraction is visually estimated to be 50 %. Global Longitudinal Strain is -12 %. Right Ventricle: Normal right ventricular size. Left Atrium: The left atrium is normal in size. Right Atrium: The right atrium is normal in size. Atrial Septum: Normal atrial septum. Mitral Valve: Normal appearance of the mitral valve. Aortic Valve: Aortic valve not well visualized. Aortic cusps appear mildly sclerotic. Tricuspid Valve: Normal appearance of the tricuspid valve. Pulmonic Valve: Pulmonic valve not well visualized. Pericardium: Normal pericardium with no significant pericardial effusion. Aorta: Normal aortic root. IVC: The IVC is not well visualized. Pulmonary Artery: Normal pulmonary artery size. CONCLUSIONS: Normal left ventricular size. Moderate concentric left ventricular hypertrophy. Left ventricular systolic function at the lower limit of normal. Paradoxical septal motion consistent with IVCD or bundle branch block. Impaired diastolic relaxation Grade I. Ejection fraction is measured at 51 %. Ejection Fraction is visually estimated to be 50 %. Global Longitudinal Strain is -12 %. The left atrium is normal in size. Technically difficult study with limited views. No Significant valvular dysfunction. Electronically Signed By: Sebas Batista MD, [facility] 06/13/2025 12:22:14 PM CDT Procedure Note Sebas Batista MD - 06/13/2025 [facility] Cardiology [address], [place] [address] [address], [place] [address] P:[phone] P:[phone] Echocardiographic Report Patient Name: MEG MONTES D : 1970 Study Date: 06/13/2025 8:23:00 AM Gender: M Touch Up Worker: Diana Caceres (Carlos)(CT), [facility] Location: [facility] Provider: ANTONIO FAJARDO Height(Cm): 173 BSA: 2.12 Weight(Kg): 93.9 Heart Rate: 99 BP: 100 / 60 Quality: Good Order Provider: ANTONIO FAJARDO PROCEDURES: Echocardiographic Report: Transthoracic echocardiogram with complete 2D, M-Mode, and color Dopplerexamination. With Strain Analysis. Definity/Optison could not be used due to: unable toobtain IV access. INDICATIONS: I44.7 Left bundle-branch block, unspecified and I42.8 Othercardiomyopathies. MEASUREMENTS: 2D/MM Value Range Doppler ValueRange EF Mod BP 51 % [ 52 - 72 ] RICK Vmax 2.25cm2 [ 2.00 - 4.00 ] Estimated EF 50 % AV Mean PG 4mmHg LV GLS -12.28 % AV Peak Karl 1.36m/s [ 1.00 - 1.70 ] LVIDd 2D 4.46 cm [ 4.20 - 5.80 ] AV Peak PG 7mmHg LVIDs 2D 3.35 cm [ 2.50 - 4.00 ] AV VTI 22.19cm LVPWd 2D 1.18 cm [ 0.60 - 1.00 ] LVOT Diam 1.96cm [ 1.70 - 2.10 ] IVSd 2D 1.19 cm [ 0.60 - 1.00 ] LVOT Peak Karl 1.02m/s [ 0.70 - 1.10 ] AoR Diam 2D 3.47 cm [ 3.10 - 3.70 ] LVOT VTI 16.22cm LA Volume 22.84 ml [ 18.00 - 58.00 ] MV E Peak Karl 0.62m/s [ 0.60 - 1.30 ] LA Volume Index 11 cc/m2 [ 16 - 28 ] MV A Peak Karl 1.14m/s [ 1.00 - 1.20 ] RA Volume 13.85 ml MV Decel Time 322msec [ 104 - 258 ] PV Peak Karl 0.96 m/s [ 0.40 - 0.80 ] RV S` 11.89 mmHg Lateral E` 0.07 m/s [ 0.10 - 0.15 ] Septal E` 0.04 m/s [ 0.08 - 0.15 ] E` 0.05 m/s E/E` 12 Tapse 1.68 cm [ 1.71 - 5.00 ] 2D/MM Value Range Doppler ValueRange - FINDINGS: Interpretation Site: Exam was interpreted at [facility]. Left Ventricle: Normal left ventricular size. Moderate concentric left ventricularhypertrophy. Left ventricular systolic function at the lower limit of normal. Paradoxicalseptal motion consistent with IVCD or bundle branch block. Impaired diastolic relaxationGrade I. Ejection fraction is measured at 51 %. Ejection Fraction is visuallyestimated to be 50 %. Global Longitudinal Strain is -12 %. Right Ventricle: Normal right ventricular size. Left Atrium: The left atrium is normal in size. Right Atrium: The right atrium is normal in size. Atrial Septum: Normal atrial septum. Mitral Valve: Normal appearance of the mitral valve. Aortic Valve: Aortic valve not well visualized. Aortic cusps appear mildly sclerotic. Tricuspid Valve: Normal appearance of the tricuspid valve. Pulmonic Valve: Pulmonic valve not well visualized. Pericardium: Normal pericardium with no significant pericardial effusion. Aorta: Normal aortic root. IVC: The IVC is not well visualized. Pulmonary Artery: Normal pulmonary artery size. CONCLUSIONS: Normal left ventricular size. Moderate concentric left ventricularhypertrophy. Left ventricular systolic function at the lower limit of normal. Paradoxicalseptal motion consistent with IVCD or bundle branch block. Impaired diastolic relaxationGrade I. Ejection fraction is measured at 51 %. Ejection Fraction is visuallyestimated to be 50 %. Global Longitudinal Strain is -12 %. The left atrium is normal in size. Technically difficult study with limited views. No Significant valvular dysfunction. Electronically Signed By: Sebas Batista MD, [facility] 06/13/2025 12:22:14 PM CDT Antonio Fajardo MD CV ECHO PROCEDURES Final Result * Electrocardiogram Report (06/04/2025 2:57 PM CDT) Antonio Fajardo MD ECG ORDERABLES Final Res ult * 48 HR Holter Monitor (06/04/2025 2:29 PM CDT) Anatomical Region Laterality Modality Electrocardiogra phy Narrative 06/13/2025 4:47 PM CDT AMBULATORY TELEGRAPHIC INSTRUMENT SUPERVISOR REPORT Patient Name: Meg Montes Date of : 1970 Requesting Physician: Dr. Fajardo Date of interpretation: 06/13/25 Type of monitor : 48 hour Holter monitor Date of the study/Enrollment period: 06/04/2025 through 06/06/2025 Indication: CAD, tachycardia Quality of the study: Good Interpretation: A total of 23 hours and 37 minutes of diagnostic time Underlying sinus rhythm heart rate variability between 77 and 184 beats per minute with an average heart rate of 104 beats per minute. Low frequency ventricular ectopy totaling 34 beats which is less 1% ectopic burden. Low-frequency supraventricular ectopy totaling 59 beats which is also less than 1% ectopic burden. This did consisted of 1 run of PSVT at a rate of 184 beats per minute which was for 6 beats. No patient triggered events. Conclusions: Underlying normal sinus rhythm sinus sinus tachycardia with elevated average heart rate of 104 beats per minute. Low-frequency ventricular and supraventricular ectopy as detailed above One 6 beat run of PSVT at a rate of 184 Voice recognition software was used to complete this document, therefore, cover making machine operator variances may occur. Antonio Fajardo MD, [facility] 06/13/25 Procedure Note Antonio Fajardo MD - 06/13/2025 AMBULATORY TELEGRAPHIC INSTRUMENT SUPERVISOR REPORT Patient Name: Meg Montes Date of : 1970 Requesting Physician: Dr. Fajardo Date of interpretation: 06/13/25 Type of monitor : 48 hour Holter monitor Date of the study/Enrollment period: 06/04/2025 through 06/06/2025 Indication: CAD, tachycardia Quality of the study: Good Interpretation: A total of 23 hours and 37 minutes of diagnostic time Underlying sinus rhythm heart rate variability between 77 and 184 beatsper minute with an average heart rate of 104 beats per minute. Low frequency ventricular ectopy totaling 34 beats which is less 1%ectopic burden. Low-frequency supraventricular ectopy totaling 59 beats which is also lessthan 1% ectopic burden. This did consisted of 1 run of PSVT at a rate of184 beats per minute which was for 6 beats. No patient triggered events. Conclusions: Underlying normal sinus rhythm sinus sinus tachycardia with elevatedaverage heart rate of 104 beats per minute. Low-frequency ventricular and supraventricular ectopy as detailed above One 6 beat run of PSVT at a rate of 184 Voice recognition software was used to complete this document, therefore,cover making machine operator variances may occur. Antonio Fajardo MD, [facility] 06/13/25 Antonio Fajardo MD [facility] Final Result * POCT lipid panel (11/27/2024 1:15 PM CDT) Cholesterol, POC 121 mg/dL HDL, POC 21 mg/dL Triglycerides, POC 173 mg/dL LDL Cholesterol POC 66 mg/dL Chol/HDL Ratio, POC 3.1 Non-HDL Cholesterol, POC 100 mg/dL Cholesterol Total, POC 121 mg/dL Capillary blood 11/27/2024 1 :15 PM CDT Antonio Fajardo MD POINT OF CARE TEST ORDERA BLES Final Result from Last 3 Months or Most Recently Relevant to Health Maintenance Insurance [employer]IC[employer] PPO [employer] PPO Advance Directives For more information, please contact: [phone] * Full Code (Latest Code Status on File) Date Activated Date Inactivated Comments 07/11/2025 1:55 PM 07/16/2025 9:06 PM Care Teams Grid Trimmer Relationship Specialty Start Date End Date Neptali Mcgrath DO PCP - General Internal Medicine 04/16/22 [place] [id number] [address] [address] Surgeon Cardiothoracic Surgery 07/16/25 Antonio Fajardo MD [address] [facility] [address] [place] [address] Consulting Physician Cardiology 07/16/25 Miscellaneous, Not In File 07/16/25
--- OUTSIDE RECORDS SUMMARY | 2025-08-13 14:16 | XMS_ITS | Encounter Summary ---
Author Organization [facility] Healthcare Address [address] [place] [address] Care Team Providers Care Metal Ceiling Builder Name Role Phone Neptali Mcgrath DO Primary Care Provider [phone] Bobby Diaz MD Unavailable [phone] Gordo Fajardo MD Unavailable [phone] Miscellaneous, Not In File Unavailable Unava ilable Encounter Details Date Type Department Care Team (Latest Contact Info) Description 06/18/2025 Results Follow-Up [facility] Cardiology [address] [id number] [place] [address] [place] [address], [address] [address] Transthoracic Echo (TTE) Complete W Doppler/CF Social History Tobacco Use Types Packs/Day Years Used Date Smoking Tobacco: Former Cigarettes Q uit: 08/05/2018 Smokeless Tobacco: Never Alcohol Use Standard Drinks/Week Comments Never 0 (1 standard drink = 0.6 oz pur e alcohol) AUDIT-C Answer Date Recorded Q1: How often do you have a drink containing alcohol? Never 06/20/2025 Q2: How many drinks containi ng alcohol do you have on a typical day when you are drinking? Patient does not drink Q3: How often do you have si x or more drinks on one occasion? Never 06/20/2025 Personal Safety Answer Date Recorded Have you ever been in or are you currently in a harmful physical or emotional relationship or is someone making you feel afraid or unsafe? Denies 06/20/2025 Sex and Gender Information Value Date Recorded Sex Assigned at Not on file Legal Sex Male 12:50 PM [employer] Gender Identity Not on file Sexual Orientation Not on file documented as of this encounter Functional Status * Difference in Last Two Sohail Scores Answer Date of Assessment Author -23 06/20/2025 9:39 AM CDT Jayro Ovalle, [place] * Question Answer Date of Assessment Author MAP (mmHg) 97 06/20/2025 3:55 PM CDT Robbin Woods RN * Toussaint Fall Risk Question Answer Date of Assessment Author History of Falling 0 06/20/2025 1:55 PM Robbin Michel RN Secondary Diagnosis 15 06/20/2025 1:55 PM Robbin Costa RN Ambulatory Aids 0 06/20/2025 1:55 PM DONTRELLT Robbin Castillo RN Intravenous Therapy/Heparin/Saline Lock 20 06/20/2025 1:55 PM DONTRELLT Geno Woods RN Gait/Transferring 0 06/20/2025 1:55 PM DONTRELLT Robbin Woods RN Mental Status 0 06/20/2025 1:55 PM CDT Robbin Shrestha RN Toussaint Fall Risk Score (Score >= 45 places fall precaution order) 35 06/20/2025 1:55 PM DONTRELLT Robbin Woods RN Prior Fall Event (Autopopulated from EMR) None found 06/20/2025 1:55 PM CDT Tameka Woods RN * Sohail Scale Question Answer Date of Assessment Author Sensory Perceptions 4 06/20/2025 9:39 AM Jayro [place], [place] Moisture 4 06/20/2025 9:39 AM CDT Jayro Wilkins, RN Activity 4 06/20/2025 9:39 AM CDT Jayro Wilkins, RN Mobility 4 06/20/2025 9:39 AM CDT Jayro Wilkins, RN Nutrition 4 06/20/2025 9:39 AM CDT Jayro Wilkins RN Friction and Shear 3 06/20/2025 9:39 AM CDT Jayro Blum RN * Sohail Scale Score Answer Date of Assessment Author 23 06/20/2025 9:39 AM CDT Jayro Ovalle RN * AUDIT-C Score Answer Date of Assessment Author 0 06/20/2025 9:43 AM CDT Jayro Ovalle RN * Alcohol Use Question Answer Date of Assessment Author Q1: How often do you have a drink containing alcohol? Never 06/20/2025 9:43 AM CDT Jame Blum am, RN Q2: How many drinks containing alcohol do you have on a typical day when you are drinking? Patient does not drink 06/20/2025 9:43 AM DONTRELLT Jayro Blum RN Q3: How often do you have six or more drinks on one occasion? Never 06/20/2025 9:43 AM CDT Jame Blum am, RN * Sohail Scale Question Answer Date of Assessment Author Sohail Scale Used Sohail 06/20/2025 9:39 AM CDT Jayro Blum RN documented as of this encounter Miscellaneous Notes * Result Encounter Note - Chacha Moore MA - 06/18/2025 5:29 PM CDT Pt notified of results and verbalized understanding. Pt awaiting upcoming cath. documented in this encounter Plan of Treatment Not on file documented as of this encounter Visit Diagnoses Not on filedocumented in this encounter Care Teams Metal Ceiling Builder Relationship Specialty Start Date End Date Neptali Mcgrath DO PCP - General Internal Medicine 04/16/22 [place] [id number] [address] [facility] [address] [address] Surgeon Cardiothoracic Surgery 07/16/25 Gordo Fajardo MD [address] [place] [address] Consulting Physician Cardiology 07/16/25 Miscellaneous, Not In File 07/16/25 documented as of this encounter
== END 2025-08-13 12:08 | disposition home or self-care (01) ==
PROVIDERS: PCP Nurse Practitioner; Visit Provider Nurse Practitioner Family
DX: R00.0 Tachycardia, unspecified (principal); R06.09 Other forms of dyspnea
CPT/HCPCS: 36415; 83880; 85380